=== PATIENT | female | born 1945 | race Caucasian/White ===

== ENCOUNTER → 2019-01-19 12:19 | Outpatient (CLI) | payer MEDICARE, SELFPAY ==
--- NOTE | 2019-01-19 12:28 | RAD_ITS ---
STUDY: X-RAY - CERVICAL SPINE REASON FOR EXAM: Female, 73 years old. Back pain. TECHNIQUE: AP and lateral view(s) of the cervical spine were obtained. COMPARISON: None FINDINGS: Normal anterior atlantoaxial articulation. Normal odontoid process. Normal cervical lordosis. There is multi-level endplate spondylosis. There is severe disc space narrowing of C5-C6 and to a lesser extent C6-C7. There is mild retrolisthesis of C5 over C6. There are small posterior degenerative spur at C5-C6. There is no demonstrated acute fracture. There are atherosclerotic vascular calcifications of the carotid arteries. There is no prevertebral soft tissue swelling. RAD/Cerv Spine 2 or 3 Views IMPRESSION: Degenerative changes of the cervical spine as described above. Electronically Signed: Dante Victoria MD at 12:08 EDT Tel , Service support ,
--- NOTE | 2019-01-19 12:28 | RAD_ITS ---
STUDY: X-RAY - THORACIC SPINE REASON FOR EXAM: Female, 73 years old. Back pain. TECHNIQUE: 2 view(s) of the thoracic spine were obtained. COMPARISON: None. FINDINGS: Normal kyphosis of the thoracic spine. There is mild dextroscoliosis. There is multilevel endplate spondylosis of the thoracic vertebrae. There is mild narrowing of midthoracic disc spaces. The soft tissue structures are unremarkable. RAD/Thoracic Spine 2 Views IMPRESSION: Degenerative changes of the thoracic spine as described above. Electronically Signed: Dante Victoria MD at 12:10 EDT Tel , Service support ,
== END ==
PROVIDERS: Family Provider Family Medicine; PCP Family Medicine; Referring Provider Chiropractor Orthopedic; Visit Provider Chiropractor Orthopedic
DX: M54.6 Pain in thoracic spine (principal); M54.2 Cervicalgia
CPT/HCPCS: 72040; 72070

== ENCOUNTER → 2019-02-03 | Outpatient (CLI) | payer MEDICARE, SELFPAY ==
[2019-02-03 09:55] VITALS: BMI 31.3
[2019-02-03 13:30] LABS: AST(SGOT) 28 U/L (15-37); Alanine Aminotransfer ALT/SGPT 40 U/L (13-56); Albumin, Serum 4.4 g/dL (3.2-5.0); Alkaline Phosphatase 52 U/L (45-117); Bilirubin, Direct 0.13 mg/dL (0.00-0.30); Cholesterol 116 mg/dL (200); Globulin 2.9 g/dL (2.2-4.2); High Density Lipoprotein 64 mg/dL; Protein, Total 7.3 g/dL (6.4-8.2); Triglycerides 77 mg/dL; Very Low Density Lipoprotein 15 mg/dL (5-40)
== END | disposition home or self-care (01) ==
LOC: LAB 11:02
PROVIDERS: Family Provider Family Medicine; PCP Family Medicine; Referring Provider Internal Medicine Cardiovascular Disease; Visit Provider Internal Medicine Cardiovascular Disease
DX: E78.5 Hyperlipidemia, unspecified (principal)
CPT/HCPCS: 36415; 80061; 80076

== ENCOUNTER → 2019-02-13 | Outpatient (CLI) | payer MEDICARE, SELFPAY ==
[2019-02-03 09:55] VITALS: BMI 31.3
--- NOTE | 2019-02-13 08:02 | ECHOD_ITS ---
Version 2 Reason For Study: PALPITATIONS Procedure This was a 2D Doppler, Color Flow transthoracic echocardiogram. Exam performed in department. Left Ventricle Normal size and thickness. The estimated ejection fraction is 65 %. Stage 1 diastolic dysfunction. No regional wall motion abnormalities noted. Right Ventricle Normal size and thickness. Normal systolic function. Atria Normal left atrium. Normal right atrium. Aneurysmal atrial septum. Bubble contrast study negative for right to left interatrial shunt. Mitral Valve Bileaflet diffuse mitral valve thickening. Mild mitral annular calcification extending into the posterior leaflet. Tricuspid Valve Normal tricuspid valve. Trivial tricuspid valve insufficiency. Right ventricular systolic pressure estimated to be 27 mmHg. Aortic Valve Trisinus/trileaflet aortic valve. Trivial aortic valve insufficiency. Pulmonic Valve Normal pulmonic valve. Trivial pulmonic valve insufficiency. Great Vessels Normal aortic root. Normal arch. Normal inferior vena cava. Inferior vena cava collapse with sniff. Pericardium/Pleural No pericardial effusion. Medication 22 gauge I.V. with prn adaptor inserted into right arm. Performed a rapid injection of agitated mix of 9 cc saline and 1cc air to assess for atrial septal defect. MMode/2D Measurements & Calculations LVIDd: 4.6 cm IVSd: 0.83 cm Ao root diam: 3.0 cm LVIDs: 3.1 cm LVPWd: 0.91 cm RVDd: 3.9 cm FS: 31.3 % LAV(MOD-bp): 57.4 ml LVAd ap4: 29.1 cm2 SV(MOD-sp4): 56.8 ml LAV(MOD-bp) Indexed: 31.6 ml/m2 EDV(MOD-sp4): 95.7 ml LAV(MOD-sp2): 74.6 ml EDV(sp4-el): 102.1 ml LAV(MOD-sp4): 36.7 ml LVAs ap4: 16.8 cm2 ESV(MOD-sp4): 38.9 ml ESV(sp4-el): 39.8 ml EF(MOD-sp4): 59.4 % EF(sp4-el): 61.0 % SV(sp4-el): 62.2 ml LA A4 area: 14.5 cm2 LA dimension(2D): 4.1 cm RA A4 area: 14.0 cm2 Time Measurements MV dec time: 0.30 sec Doppler Measurements & Calculations MV E max juanito: 45.0 cm/sec Lat Peak E' Juanito: 7.2 cm/sec Med Peak E' Juanito: 5.8 cm/sec MV A max juanito: 62.5 cm/sec E/E' lat: 6.2 E/E' med: 7.7 MV E/A: 0.72 Ao V2 max: 133.6 cm/sec AI max juanito: 384.7 cm/sec LV V1 max: 111.5 cm/sec Ao max P.1 mmHg AI max P.2 mmHg LV V1 max P.0 mmHg AI dec slope: 190.6 cm/sec2 AI P1/2t: 591.3 msec PA V2 max: 58.8 cm/sec PI end-d juanito: 138.9 cm/sec TR max juanito: 242.6 cm/sec TR max P.6 mmHg Interpretation Summary The estimated ejection fraction is 65 %. Stage 1 diastolic dysfunction. Trivial tricuspid valve insufficiency. Right ventricular systolic pressure estimated to be 27 mmHg. Trivial aortic valve insufficiency. Aneurysmal atrial septum. Bubble contrast study negative for right to left interatrial shunt. There is no comparison study available. Ordering Physician: Shad Mix Referring Physician: TANGELA BUCKLEY Performed By: Shadia Grimes RDCS
== END | disposition home or self-care (01) ==
LOC: CVS 08:01
PROVIDERS: Family Provider Family Medicine; PCP Family Medicine; Referring Provider Internal Medicine Cardiovascular Disease; Visit Provider Internal Medicine Cardiovascular Disease
DX: R00.2 Palpitations (principal); E11.9 Type 2 diabetes mellitus without complications; I10 Essential (primary) hypertension; I77.9 Disorder of arteries and arterioles, unspecified; R42 Dizziness and giddiness; R06.83 Snoring
CPT/HCPCS: 93306; A4216

== ENCOUNTER → 2019-02-16 | Outpatient (CLI) | payer MEDICARE, SELFPAY ==
[2019-02-03 09:55] VITALS: BMI 31.3
== END | disposition home or self-care (01) ==
LOC: SL 13:06
PROVIDERS: Family Provider Family Medicine; PCP Family Medicine; Referring Provider Internal Medicine Cardiovascular Disease; Visit Provider Internal Medicine Cardiovascular Disease
DX: R06.09 Other forms of dyspnea (principal); G47.33 Obstructive sleep apnea (adult) (pediatric); R06.83 Snoring; E66.9 Obesity, unspecified; I10 Essential (primary) hypertension; R00.2 Palpitations
CPT/HCPCS: 95806

== ENCOUNTER → 2019-02-18 | Outpatient (CLI) | payer MEDICARE, SELFPAY ==
[2019-02-03 09:55] VITALS: BMI 31.3
--- NOTE | 2019-02-18 10:45 | STE_ITS ---
Reason For Study: Palpitations Stress Results Protocol: Romeo Protocol Maximum Predicted HR: 149 bpm Target HR: 127 bpm % Maximum Predicted HR: 93 % DurationHeart Rate Stage (mm:ss) (bpm) BP Comment Baseline 60 116/70No Chest Pain Romeo Protocol Stage I 3:00 118 148/80No Chest Pain; Mild Dyspnea Romeo Protocol Stage II 3:00 139 166/84No Chest Pain; Moderate Dyspnea Recovery 73 110/68No Chest Pain Stress Duration: 6:00 mm:ss Maximum Stress HR: 139 bpm METS: 7 Baseline Echocardiogram Findings The estimated ejection fraction is 65 %. Stress Echo Wall motion Data Resting WM Intermediate WM Stress WM Resting Wall Motion Wall Motion Stress No regional wall motion No regional wall motion abnormalities noted. abnormalities noted. EKG Data The baseline ECG displays normal sinus rhythm. The patient exercised according to the regular Romeo protocol for a total duration of 6:01. The maximum heart rate attained was 141 beats per minute. This was 94% of maximum predicted heart rate. The patient exercised into stage 3 of the Romeo protocol. During stress, there were no ST or T wave changes noted to suggest ischemia. No clinical angina was noted. Interpretation Summary The estimated ejection fraction is 65 %. Normal, adequate, treadmill echocardiogram. Negative for ischemia by EKG and echocardiographic criteria. No anginal symptoms noted. Rare PVCs noted. Normal blood pressure response to exercise. Final LVEF of 75%. Test terminated due to dyspnea. Average exercise capacity for age. Decreased sensitivity due to poor echo windows requiring Definity agent. No complications. Ordering Physician: Shad Mix Referring Physician: Jose F Zamora Performed By: Tiffanie Peterson, ISABELLE, RVT
== END | disposition home or self-care (01) ==
LOC: CVS 10:44
PROVIDERS: Family Provider Family Medicine; PCP Family Medicine; Referring Provider Internal Medicine Cardiovascular Disease; Visit Provider Internal Medicine Cardiovascular Disease
DX: R00.2 Palpitations (principal)
CPT/HCPCS: 93017; 93350

== ENCOUNTER → 2019-04-07 | Outpatient (CLI) | payer MEDICARE, SELFPAY ==
[2019-03-05 09:47] VITALS: BMI 32.3
[2019-04-07] MEDS: Zolpidem Tartrate 5 MG Tablet PO (22:00)
== END | disposition home or self-care (01) ==
PROVIDERS: Family Provider Family Medicine; PCP Family Medicine; Referring Provider Nurse Practitioner Acute Care; Visit Provider Nurse Practitioner Acute Care
DX: G47.33 Obstructive sleep apnea (adult) (pediatric) (principal)
CPT/HCPCS: 95810

== ENCOUNTER → 2019-04-17 | Outpatient (CLI) | payer MEDICARE, SELFPAY ==
[2019-03-05 09:47] VITALS: BMI 32.3
[2019-04-17] MEDS: Zolpidem Tartrate 5 MG Tablet PO (22:00)
== END | disposition home or self-care (01) ==
LOC: SL 20:52
PROVIDERS: Family Provider Family Medicine; PCP Family Medicine; Visit Provider Nurse Practitioner Acute Care
DX: G47.33 Obstructive sleep apnea (adult) (pediatric) (principal)
CPT/HCPCS: 95811

== ENCOUNTER → 2019-08-07 | Outpatient (CLI) | payer MEDICARE, SELFPAY ==
[2019-08-07 13:27] VITALS: BMI 34.7
[2019-08-07 15:53] LABS: T4 Total, Thyroxin 8.3 ug/dL (4.8-13.9); Thyroid Stim Hormone (TSH) 0.76 uIU/mL (0.358-3.74)
== END | disposition home or self-care (01) ==
LOC: LAB 14:30
PROVIDERS: Family Provider Family Medicine; PCP Family Medicine; Referring Provider Internal Medicine Cardiovascular Disease; Visit Provider Internal Medicine Cardiovascular Disease
DX: R00.2 Palpitations (principal)
CPT/HCPCS: 36415; 84436; 84443

== ENCOUNTER 2019-08-24 10:26 | Emergency (ER) | payer MEDICARE, SELFPAY ==
[2019-08-07 13:27] VITALS: BMI 34.7
[2019-08-24 10:28] VITALS: BP 136/87; PULSE 58; RESP 17; TEMP 36.6; O2SAT 97; BMI 34.4
--- NOTE | 2019-08-24 10:45 | EKG12_ITS ---
Test Reason : DIZZINESS Blood Pressure : / mmHG Vent. Rate : 052 BPM Atrial Rate : 052 BPM P-R Int : 192 ms QRS Dur : 088 ms QT Int : 432 ms P-R-T Axes : 025 000 020 degrees QTc Int : 401 ms Sinus bradycardia Otherwise normal ECG Confirmed by RIOS VAZQUEZ, LISA ([id number]), market editor CARSON GUERRIER ([id number]) on 08/26/2019 11:00:38 AM Referred By: LEONELA Confirmed By:LISA NATION MD
--- NOTE | 2019-08-24 10:47 | CT_ITS ---
STUDY: CT FACIAL BONES WITH CONTRAST REASON FOR EXAM: Female, 74 years old. Left earache. Dizziness. RADIATION DOSAGE (If Supplied By Facility): CTDIvol = ( 29.38 ) mGy, DLP = ( 664.99 ) mGycm TECHNIQUE: The patient was scanned in a multi detector CT scanner. Transaxial imaging was performed following the intravenous administration of IV Isovue 300 100CC. Sagittal and coronal images were reconstructed. Individualized dose optimization techniques were used for this CT. COMPARISON: None. FINDINGS: Normal soft tissue structures. Normal orbital hernandez and orbital contents. Normal nasal bones and anterior nasal spine. Normal facial bones. There is no demonstrated fracture. Mucosal thickening of the maxillary sinuses bilaterally. CT/Sinus/Facial Bone WITH Contras IMPRESSION: Mucosal thickening of the maxillary sinuses bilaterally. Electronically Signed: Amadeo Velasquez, at 12:30 EST , Service support ,
[2019-08-24] MEDS: 0.9% Normal Saline 1,000 ML 1000 ML IV (11:07)
[2019-08-24] MEDS: Ondansetron 4 MG/2 ML Vial IV (11:08)
[2019-08-24 11:09] LABS: Absolute Lymphocyte Count 2.51 X10^3/uL (0.83-4.51); Absolute Neutrophil Count 2.4 X10^3/uL (2.0-7.7); Basophil# 0.04 X10^3/uL; Basophil% 0.7 % (0-1); Eosinophil# 0.17 X10^3/uL; Hematocrit 42.7 % (37-47); Hemoglobin 14.1 g/dL (12.0-15.0); Lymphocyte # 2.51 X10^3/ul (4.0); Lymphocyte % 44.4 % (19-41); Mean Corpuscular Hgb 30.2 pg (27.0-32.0); Mean Corpuscular Volume 91.4 fL (81-99); Mean Platelet Vol. 9.8 fl (6.2-12.0); Monocyte# 0.49 X10^3/uL; Monocyte% 8.7 % (0-10); NRBC Flagged by Analyzer 0 % (0-5); Neutrophil # 2.43 X10^3/uL (2.7-7.7); Platelet Count 202 K/mm3 (150-450); RBC Distribution Width CV 13.2 % (11.6-14.6); RBC Distribution Width SD 44.8 fl (35.1-43.9); Red Blood Count 4.67 M/mm3 (4.2-5.4); White Blood Count 5.7 K/mm3 (4.4-11.0)
--- NOTE | 2019-08-24 11:15 | ED.DCSUM_ITS ---
History of Present Illness Chief Complaint: Dizziness Informant: Patient Onset: Days Context: Gradual Onset Timing: Intermittent Current Severity: Moderate Maximum Severity: Moderate Narrative: The patient presents to the emergency department with intermittent dizziness. She states is been going on for the past few days. She states she has a history of vertigo and this does feel similar. She recently had medication change. She was started on sertraline about 2 weeks ago. She also had her lisinopril dose cut in half. She states the dizziness did seem to correspond to that, but has worsened. 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 She did require operative debridement and broad-spectrum antibiotics. She denies any fever. She denies any headache. She denies any nausea vomiting. She states she has been doing the Danii maneuver at home with some improvement, but then the symptoms returned. Prior similar symptoms: Yes Recent Illness/Hospitalization: No Past Medical History - Allergies and Home Meds Allergies/Adverse Reactions: Allergies No Known Allergies Allergy (Verified 08/24/19 10:28) Primary Care Physician: Alexx Zamora MD [Primary Care Provider] - Prior records reviewed: Yes Past Medical History: - Surgical History: noncontributory Smoking Status: Never smoker Review of Systems General: Denies: Chills, Fever, Sweats Eyes: Denies: Visual changes - bilaterally, Diplopia ENT: Reports: Bilateral ear pain. Denies: Rhinorrhea, Sore throat Cardiovascular: Denies: Chest pain, Palpitations Respiratory: Denies: Dyspnea, Cough, Dyspnea on exertion Gastrointestinal: Denies: Abdominal pain, Nausea, Vomiting, Diarrhea, Melena, Hematochezia Genitourinary: Denies: Dysuria, Hematuria, Frequency Musculoskeletal: Denies: Back pain, Extremity Pain Skin: Denies: Rash, Wounds Neurological: Denies: Headache, Weakness, Numbness Endocrine: Denies: Polyuria Hematologic: Denies: Easy bruising Physical Exam Vital Signs/Narrative: Vital Signs Temp Pulse Resp BP Pulse Ox 08/24/19 10:28 97.9 F 58 L 17 136/87 H 97 Inital Vital Signs reviewed: Yes General: Well nourished, Well developed, No Acute Distress Head: Normocephalic, Atraumatic Eyes: Perrl, EOMI ENT: Moist mucous membranes, No rhinorrhea Neck: Supple, Nontender Cardiovascular: Regular rate, Regular rhythm, No murmurs Respiratory: No distress, CTA bilaterally, Chest nontender Abdomen: Soft, Nontender, Nondistended, Normal bowel sounds Back: Nontender, Normal Inspection Extremities: Nontender, No edema Skin: Normal color, No rash Neurological: Alert, Oriented x3, Cranial nerves II-XII grossly intact, Normal Strength, Normal Sensation Psychological: Normal affect, Normal Mood Diagnostic/Tx/Re-eval Clinical Impression(s) from Imaging Studies Facial/Sinus 08/24/19 10:47 IMPRESSION: Mucosal thickening of the maxillary sinuses bilaterally. Electronically Signed: Amadeo Velasquez, at 12:30 EST , Service support , Abnormal Lab Results 08/24/19 08/24/19 11:03 11:03 WBC 5.7 RBC 4.67 Hgb 14.1 Hct 42.7 MCV 91.4 MCH 30.2 MCHC 33.0 RDW Std Deviation 44.8 H RDW Coeff of Jesus 13.2 Plt Count 202 MPV 9.8 Immature Gran % (Auto) 0.200 Neut % (Auto) 43.0 L Lymph % (Auto) 44.4 H [place] % (Auto) 8.7 Eos % (Auto) 3.0 Baso % (Auto) 0.7 Absolute Neuts (auto) 2.4 Absolute Lymphs (auto) 2.51 Nucleated RBC % 0 Sodium 137 Potassium 4.1 Chloride 104 Carbon Dioxide 26.0 Anion Gap 7 BUN 17 Creatinine 0.79 Estim Creat Clear Calc 42.07 Est GFR (MDRD) Af Amer 92 Est GFR (MDRD) Non-Af 76 BUN/Creatinine Ratio 21.5 H Glucose 111 H Calcium 9.3 - Rhythm Strip Rhythm Strip: Sinus Rhythm Rate: 60 Ectopy: None - EKG Initial EKG Interpretation: Sinus Rhythm, No Acute Injury Pattern Prior: Unchanged - Medical Decision Making Patient states that she did have similar symptoms when she had actinomycosis orbital cellulitis in the past. Is able to review her records and this was found on CT. She does not really have any significant facial fullness or purulent drainage. She does have some bulging of the TMs with serous fluid but no evidence of acute infectious process. The patient symptoms are worse when she moves her head. I did obtain a CT of her sinuses because this was her major concern. There was no evidence of orbital abscess or other dangerous process. There is very minimal inflammation of the maxillary sinuses. I am going to treat the patient with Augmentin and prednisone. She is comfortable with this plan of care. I do feel that she is safe for outpatient therapy. She was counseled on concerning symptoms and reasons to return. She will be discharged home. Impression 1. Vertigo 2. Sinusitis ED Disposition - Plan for ED Patient: Instructions: VERTIGO, Unspecified Prescriptions: Amox/Clavulanate Tablet [Augmentin Tablet] 875 mg PO Q12H #20 tab Prescription Printed Prednisone [Deltasone] 40 mg PO DAILY #10 tab Prescription Printed Referrals: Alexx Zamora MD [Primary Care Provider] -
[2019-08-24 11:22] LABS: Anion Gap 7 (5-15); BUN 17 mg/dL (7-18); BUN/Creat Ratio 21.5 RATIO (10-20); Calcium,Total 9.3 mg/dL (8.5-10.1); Chloride 104 mmol/L (98-107); Creatinine, Serum 0.79 mg/dL (0.55-1.02); EST Glomerular Filtration Rate 76 mL/min (>60); Est Glom Filt Rate - Afr Amer 92 mL/min (>60); Estimated Creatinine Clearance 42.07 ml/min; Glucose 111 mg/dL (74-106); Potassium 4.1 mmol/L (3.5-5.1); Sodium Level 137 mmol/L (136-145)
[2019-08-24 12:57] VITALS: BP 151/72; PULSE 54; RESP 18; O2SAT 100
== END 2019-08-24 12:58 | disposition home or self-care (01) ==
LOC: ED 10:46
PROVIDERS: Emergency Provider Emergency Medicine; Family Provider Family Medicine; PCP Family Medicine
DX: R42 Dizziness and giddiness (principal); J32.0 Chronic maxillary sinusitis
CPT/HCPCS: 70487; 80048; 85025; 93005; 96361; 96374; 99284; J7030; Q9967; J2405

== ENCOUNTER → 2019-09-10 11:00 | Outpatient (CLI) | payer MEDICARE, SELFPAY ==
[2019-09-01 11:25] VITALS: BMI 34.3
== END ==
PROVIDERS: Family Provider Family Medicine; PCP Family Medicine; Referring Provider Internal Medicine Critical Care Medicine; Visit Provider Internal Medicine Critical Care Medicine
DX: G47.33 Obstructive sleep apnea (adult) (pediatric) (principal)
CPT/HCPCS: 98960; G0463

== ENCOUNTER → 2020-04-25 08:59 | Outpatient (CLI) | payer MEDICARE, SELFPAY ==
[2020-03-03 10:04] VITALS: BMI 32.2
--- NOTE | 2020-04-25 09:00 | RAD_ITS ---
STUDY: X-RAY - LEFT KNEE REASON FOR EXAM: Female, 74 years old. Knee cap pain, no trauma TECHNIQUE: 5 view(s) of the knee. COMPARISON: None. FINDINGS: There is demineralization of the visualized distal femur. There is demineralization of the tibia and fibula. Normal proximal tibiofibular articulation. There is mild degenerative arthrosis of the medial femorotibial compartment. There is mild degenerative arthrosis of the lateral femorotibial compartment. There is moderate degenerative arthrosis of the patellofemoral articulation. The soft tissue structures are unremarkable. RAD/Knee 4 or More Views IMPRESSION: Degenerative arthrosis. No visualized fracture. Electronically Signed: Effie Cole MD at 0:22 EDT Tel , Service support ,
== END ==
PROVIDERS: PCP Family Medicine; Referring Provider Orthopaedic Surgery; Visit Provider Orthopaedic Surgery
DX: M25.562 Pain in left knee (principal)
CPT/HCPCS: 73564

== ENCOUNTER → 2025-02-03 | Outpatient (CLI) | payer MEDICARE, SELFPAY ==
--- NOTE | 2025-02-03 13:33 | NEURO ---
NCS and/or EMG Patient Report Ordering Doctor: OLGA CAMPBELL DATE OF SERVICE: 02/03/25 Aimee presents complaints of left leg weakness. Electrodiagnostic findings: Left peroneal motor nerve demonstrates normal distal latency with normal amplitude and normal conduction velocity. Left tibial motor nerve demonstrates normal distal latency amplitude and conduction velocity. Normal peroneal and tibial F?waves. H?reflex mildly prolonged on the right side. Normal left sural and superficial peroneal responses. Needle EMG testing was performed the left lower limb. All muscles tested showed no evidence of denervation with normal motor unit action potentials. Electrodiagnostic impression: This is a normal electrodiagnostic study of the left lower limb. There is no electrodiagnostic evidence for peripheral neuropathy or lumbosacral radiculopathy. Multi Select Codes Neurology Neurology Interp Codes: 46353-70 Musc test done w/n test comp (interp) and 96287-24 Nrv cndj test 7-8 studies (interp)
== END | disposition home or self-care (01) ==
LOC: PSN 12:13
PROVIDERS: PCP Nurse Practitioner Family; Referring Provider Physician Assistant Medical; Visit Provider Physician Assistant Medical
DX: G62.9 Polyneuropathy, unspecified (principal); R29.898 Other symptoms and signs involving the musculoskeletal system
CPT/HCPCS: 95886; 95909

== ENCOUNTER → 2025-05-14 | Outpatient (CLI) | payer MEDICARE, SELFPAY ==
[2025-05-14 12:25] LABS: Color, Urine Yellow (Yellow); Glucose, Dipstick Normal (Normal); Ketone-Dipstick 5 mg/dl (Negative); Leukocyte Esterase-Dipstick 500 /ul (Negative); Nitrite-Dipstick Negative (Negative); Occult Blood-Urine 10 /ul (Negative); Protein-Dipstick Negative (Negative); Specific Gravity, Urine 1.010 (1.002-1.030); Urine Bilirubin Dipstick Negative (Negative)
[2025-05-14 13:12] LABS: Creatinine, Urine (random) 39.40 mg/dL (28.00-217.00); Microalbumin,Random Urine < 12.0 mg/L (<20 mg/L)
--- OUTSIDE RECORDS SUMMARY | 2025-05-14 18:02 | XMS RPT_ITS | CCD ---
Author Organization [facility] CliniSynv Care Team Providers Care Residential Care Facility Manager Name Role Phone Jose F Zamora MD Primary Care Provider Rodney Shaver Unavailable Jose F Zamora MD Primary Care Provider Rodney Shaver MD Unavailable Podlogar PELLETIZER TENDER.Wen TRAORE Unavailable CARLENE GEIGER Attending Provider CARLENE GEIGER Referring Provider Honorio DIRECTOR OF WEB MARKETING-C, Guero Primary Care Provider CARLNEE GEIGER Other Provider Dr. Subhash Freed MD Attending Provider Gloria Townsend NP Attending Unavailable Alexx Zamora Referring Unavailable Noah, Alexx Primary Care Unavailable CARLENE VASQUEZ Consulting Unavailable Subhash Freed Attending Unavailable Honorio Guero Primary Care Unavailable CARLENE VASQUEZ Referring Unavailable Honorio Guero Primary Care Unavailable ERCARLENE Referring Unavailable CARLENE VASQUEZ Attending Unavailable Honorio DIRECTOR OF WEB MARKETING, [place] Primary Care Provider [phone] CHAUNCEY JANG JR Attending Unavailable ELISE ZAMORAER Primary Care Unavailable CHAUNCEY JANG JR Referring Unavailable LILLIELEY, LEODANOPHER Primary Care Unavailable RUT GAMA Attending Unavailable GUERO JUARES Referring Unavailable CARLENE VASQUEZ Attending Unavailable RUT GAMA Attending Unavailable CHAUNCEY JANG JR Referring Unavailable CARLENE VASQUEZ Referring Unavailable CHAUNCEY JANG JR Referring Unavailable CHAUNCEY JANG JR Referring Unavailable LILLIELEY, CHRISTOPHER Primary Care Unavailable Medications Current Medications Medication Drug Class(es) Dates Sig (Normalized) Sig (Original) Antiarthritic Combination No.2 (Glucosamine-Chondro itin) 900 mg tablet (1 source) Start: 04-25-2020 Antiarthritic Combination No.2 (Glucosamine-Chondr oitin) 900 mg tablet Active mg PO April 25, 2020 12:00am atorvastatin 20 mg oral tablet (20 sources) HMG-CoA Reductase Inhibitor Start: 02-01-2019 End: 07-22-2023 take 1 tablet by mouth once daily at bedtime for hyperlipidemia atorvastatin (LIPITOR) 20 mg tablet Indications: Hyperlipidemia, mixed Take 1 tablet by mouth daily at bedtime. For cholesterol. 90 tablet 1 02/28/2022 Active Comment on above: Take 1 tablet by isael th daily at bedtime. For cholesterol. CPAP (20 sources) Start: 08-06-2019 CPAP Initiate CPAP @ 7 cm of water with humidification. Mask (per patient preference) optional chin strap (if indicated) , filters, tubing, humidifier and lifetime supplies. 1 Device 08/06/2019 Active Start: 08-06-2019 CPAP Initiate CPAP @ 7 cm of water with humidification. Mask (per patient preference) optional chin strap (if indicated) , filters, tubing, humidifier and lifetime supplies. 1 Device 0 08/06/2019 Active Comment on above: Initiate CPAP @ 7 cm of water with humidification. Mask (per patient preference) optional chin strap (if indicated) , filters, tubing, humidifier and lifetime supplies. lisinopril 20 mg oral tablet (20 sources) Angiotensin Converting Enzyme Inhibitor Start: 1 take 0.5 tablet by mouth once daily lisinopril (ZESTRIL, PRINIVIL) 20 mg tablet Take 0.5 tablets by mouth once daily. 11/28/2020 Active Start: 03-03-2020 End: 07-27-2024 take 1 tablet by mouth once daily Lisinopril 10 mg tablet Discontinued 10 mg PO DAILY 90 March 01, 2023 11:40am July 27, 2024 8:15am Start: 08-07-2019 End: 03-03-2020 take 10 mg by mouth once daily Lisinopril 20 mg tablet Discontinued 10 mg PO DAILY August 07, 2019 2:02pm March 03, 2020 10:08am Start: 02-03-2019 End: 08-07-2019 take 1 tablet by mouth once daily Lisinopril 20 mg tablet Discontinued 20 mg PO DAILY February 03, 2019 12:00am August 07, 2019 2:02pm Start: 02-01-2019 End: 02-03-2019 Lisinopril 20 mg tablet Disc ontinued PO 90 February 01, 2019 12:00am February 03, 2019 9:41am Comment on above: Take 0.5 tablets by mouth once daily. melatonin 3 mg oral capsule (1 source) Start: 0 take 1 capsule by mouth at bedtime as needed Melatonin 3 mg capsule Active 3 mg PO BEDTIME as needed March 03, 2020 12:00am 24 hr metFORMIN hydrochloride 500 mg extended release oral tablet (20 sources) Biguanide Start: 1 take 1 tablet by mouth once daily at breakfast metFORMIN ER (GLUCOPHAGE XR) 500 mg 24 hr tablet Indications: Type 2 diabetes mellitus without complication, with long-term current use of insulin (HCC) Take 1 tablet by mouth daily with breakfast. 90 tablet 3 09/08/2021 Active Start: 02-01-2019 End: 07-22-2023 take 1 tablet by mouth once daily Metformin 500 mg tablet Discontinued 500 mg PO DAILY February 01, 2019 12:00am July 22, 2023 9:16am Comment on above: Take 1 tablet by isael th daily with breakfast. 24 hr metoprolol succinate 25 mg extended release oral tablet (20 sources) beta-Adrenergic Dick Start: 09-01-2021 End: 02-27-2022 take 1 tablet by mouth once daily metoprolol succinate ER (TOPROL XL) 25 mg 24 hr tablet Take 1 tablet by mouth once daily. 90 tablet 1 02/28/2022 Active Start: 08-07-2019 End: 07-22-2023 take 1 tablet by mouth every twenty-four hours at bedtime Metoprolol Succinate 25 mg tablet extended release 24 hr Discontinued 25 mg PO AT BEDTIME August 07, 2019 2:02pm July 22, 2023 9:16am Start: 02-03-2019 End: 08-07-2019 take 1 tablet by mouth once daily Metoprolol Succinate 25 mg tablet extended release 24 hr Discontinued 25 mg PO DAILY February 03, 2019 12:00am August 07, 2019 2:02pm Start: 02-01-2019 End: 02-03-2019 take 1 tablet by mouth every twenty-four hours Metoprolol Succinate 25 mg tablet extended release 24 hr Discontinued PO 90 February 01, 2019 12:00am February 03, 2019 9:42am Comment on above: Take 1 tablet by isael th once daily. sertraline 50 mg oral tablet (20 sources) Serotonin Reuptake Inhibitor Start: 9 End: 3 take 1 tablet by mouth once daily sertraline (ZOLOFT) 50 mg tablet Indications: Anxiety Take 1 tablet by mouth once daily. 90 tablet 3 09/08/2021 Active Comment on above: Take 1 tablet by isael once daily. traZODone hydrochloride 100 mg oral tablet (5 sources) Serotonin Reuptake Inhibitor Start: 5 End: 6 traZODone (DESYREL) 100 mg tablet Indications: Insomnia, unspecified type Take 1 tablet by mouth daily at bedtime. Patient should start on April 20, 2025. 90 tablet 3 04/20/2025 04/15/2026 Active Completed/Discontinued Medications Medication Drug Class(es) Dates Sig (Normalized) Sig (Original) amoxicillin 875 mg / clavulanate 125 mg oral tablet (1 source) Penicillin-class Antibacterial Start: 08-24-2019 End: 03-03-2020 take 1 tablet by mouth every twelve hours Amoxicillin-Pot Clavulanate 875 MG tablet Discontinued 875 mg PO Q12H August 24, 2019 1:00am March 03, 2020 10:08am LORazepam 1 mg oral tablet (1 source) Benzodiazepine Start: 08-25-2013 End: 02-01-2019 take 1 tablet by mouth three times daily as needed Lorazepam 1 MG tablet Discontinued 1 mg PO THREE TIMES A DAY as needed for Vertigo August 25, 2013 1:56pm February 01, 2019 1:31pm meclizine hydrochloride 25 mg oral tablet (2 sources) Antiemetic Start: 09-01-2013 End: 02-01-2019 take 1 tablet by mouth three times daily Meclizine 25 MG tablet Discontinued 25 mg PO THREE TIMES A DAY September 01, 2013 1:00am February 01, 2019 1:31pm Start: 08-25-2013 End: 02-01-2019 take 1 tablet by mouth every eight hours Meclizine 25 MG tablet Discontinued 25 mg PO EVERY 8 HOURS August 25, 2013 1:00am February 01, 2019 1:31pm meloxicam 15 mg oral tablet (1 source) Nonsteroidal Anti-inflammatory Drug Start: 04-25-2020 End: 07-22-2023 take 1 tablet by mouth once daily Meloxicam (Mobic) 15 mg tablet Discontinued 15 mg PO DAILY April 25, 2020 12:00am July 22, 2023 9:16am do not take with other NSAIDs predniSONE 20 mg oral tablet (1 source) Start: 08-24-2019 End: 09-02-2019 take 2 tablets by mouth once daily at mealtime Prednisone 20 MG tablet Discontinued 40 mg PO DAILY August 24, 2019 1:00am September 02, 2019 9:47am With food Selenium 200 mcg capsule (1 source) Start: 02-03-2019 End: 07-22-2023 take 1 capsule by mouth once daily Selenium 200 mcg capsule Discontinued 200 ug PO DAILY February 03, 2019 12:00am July 22, 2023 9:16am Eric's Wort (1 source) Start: 02-03-2019 End: 08-07-2019 take 1 capsule by mouth twice daily [place]'s Wort 300 mg capsule Discontinued 700 mg PO TWICE A DAY February 03, 2019 12:00am August 07, 2019 1:31pm suvorexant 10 mg oral tablet (1 source) Orexin Receptor Antagonist Start: 01-29-2025 End: 01-29-2025 take 1 tablet by mouth once daily at bedtime suvorexant (BELSOMRA) 10 mg tab Indications: Insomnia, unspecified type Take 1 tablet by mouth daily at bedtime for 90 days. 30 tablet 2 01/29/2025 01/29/2025 Discontinued Problems Active Problems Problem Classification Problem Date Documented Date Episodic/Chronic Anxiety disorders (20 sources) Anxiety; Translations: [Anxiety disorder, unspecified] 01-01-2018 Chronic Cardiac dysrhythmias (1 source) Palpitations; Translations: [Palpitations] 09-25-2021 Episodic Conditions associated with dizziness or vertigo (1 source) Vertigo; Translations: [Dizziness and giddiness] 09-25-2021 Episodic Diabetes mellitus with complications (1 source) Secondary diabetes mellitus; Translations: [Diabetes mellitus due to underlying condition with hyperosmolarity without nonketotic hyperglycemic-hyperos molar coma (NKHHC)] Chronic Diabetes mellitus without complication (20 sources) Diabetes mellitus; Translations: [Type 2 diabetes mellitus without complications] Onset: 09-05-2013 Chronic Disorders of lipid metabolism (2 sources) Mixed hyperlipidemia; Translations: [Mixed hyperlipidemia] Chronic Essential hypertension (20 sources) Hypertensive disorder; Translations: [Essential (primary) hypertension] Onset: 09-05-2013 10-16-2021 Chronic Other circulatory disease (1 source) Disorder of carotid artery; Translations: [Disorder of arteries and arterioles, unspecified] 09-25-2021 Chronic Comment on above: < 40 % bilaterally Other connective tissue disease (9 sources) Recurrent falls ; Translations: [Repeated falls] 12-04-2024 Episodic Other lower respiratory disease (1 source) Dyspnea on exertion; Translations: [Other forms of dyspnea] 09-25-2021 Episodic Other lower respiratory disease (1 source) Snoring; Translations: [Snoring] 09-25-2021 Episodic Other nervous system disorders (2 sources) Neuropathy; Translations: [Polyneuropathy, unspecified] 01-13-2025 Chronic Other nervous system disorders (2 sources) Polyneuropathy, unspecified; Translations: [Polyneuropathy, unspecified] Onset: 01-13-2025 Chronic Other nervous system disorders (9 sources) Disturbance in speech; Translations: [Unspecified speech disturbances] 12-04-2024 Episodic Other nervous system disorders (9 sources) Coordination problem; Translations: [Other lack of coordination] 12-04-2024 Episodic Other nervous system disorders (9 sources) Impairment of balance; Translations: [Other abnormalities of gait and mobility] 12-04-2024 Episodic Other nervous system disorders (2 sources) Other lack of coordination; Translations: [Other lack of coordination] Onset: 01-13-2025 Episodic Other non-traumatic joint disorders (3 sources) Hip pain; Translations: [Pain in left hip] 12-04-2024 Episodic Other nutritional; endocrine; and metabolic disorders (20 sources) Obesity; Translations: [Obesity, unspecified] 11-28-2020 Chronic Other nutritional; endocrine; and metabolic disorders (1 source) H/O: diabetes mellitus; Translations: [Personal history of other endocrine, nutritional and metabolic disease] 12-04-2024 Episodic Other nutritional; endocrine; and metabolic disorders (1 source) H/O: raised blood lipids; Translations: [Personal history of other endocrine, nutritional and metabolic disease] 12-04-2024 Episodic Residual codes; unclassified (20 sources) Obstructive sleep apnea syndrome; Translations: [Obstructive sleep apnea (adult) (pediatric)] 11-28-2020 Chronic Residual codes; unclassified (1 source) Obstructive sleep apnea (adult) (pediatric); Translations: [FINA on CPAP] Onset: 04-01-2025 Chronic Residual codes; unclassified (5 sources) Insomnia; Translations: [Insomnia, unspecified] 12-04-2024 Episodic Spondylosis; intervertebral disc disorders; other back problems (20 sources) Degeneration of cervical intervertebral disc; Translations: [Other cervical disc degeneration, unspecified cervical region] Onset: 02-05-2019 02-05-2019 Chronic Unclassified (20 sources) SUMMARY Onset: 09-05-2013 Unclassified (15 sources) Drug therapy finding; Translations: [DVT prophylaxis] Onset: 09-05-2013 Past or Other Problems Problem Classification Problem Date Documented Date Episodic/Chronic Inflammation; infection of eye (except that caused by tuberculosis or sexually transmitteddisease) (20 sources) Orbital cellulitis; Translations: [Cellulitis of unspecified orbit] Onset: 09-05-2013 Episodic Other aftercare (5 sources) Drug therapy finding; Translations: [Other certified prosthetist/orthotist (current) drug therapy] Onset: 09-05-2013 Episodic Other connective tissue disease (1 source) Repeated falls; Translations: [Recurrent falls] Onset: 12-04-2024 Episodic Other nervous system disorders (1 source) Unspecified speech disturbances; Translations: [Speech disturbance, unspecified type] Onset: 12-04-2024 Episodic Other nervous system disorders (1 source) Other abnormalities of gait and mobility; Translations: [Balance problem] Onset: 12-04-2024 Episodic Other non-traumatic joint disorders (1 source) Pain in left hip; Translations: [Pain in left hip] Onset: 12-04-2024 Episodic Other nutritional; endocrine; and metabolic disorders (2 sources) Personal history of other endocrine, nutritional and metabolic disease; Translations: [History of hyperlipidemia] Onset: 12-04-2024 Episodic Other screening for suspected conditions (not mental disorders or infectious disease) (20 sources) Patient encounter status; Translations: [Encounter for screening for malignant neoplasm of colon] Onset: 09-05-2013 07-05-2017 Episodic Residual codes; unclassified (1 source) Insomnia, unspecified; Translations: [Insomnia, unspecified type] Onset: 12-04-2024 Episodic Results Test Name Value Interpretation Reference Range Facility CNOVon 04-01-2025 CNOV Office Visit (SLEWST ) AIMEE CANCINO ([id number]) 1945 F Date Time Provider Department 04/01/25 9:30 AM RUT GAMA During your visit today, we recorded the following information about you: Pulse Respiration Blood pressure Weight 61/minute 16/minute 92/60 93.6 kg Rut Gama APRN.CNP 04/01/2025 12:05 PM Signed [facility] Follow up/ Established patient visit Recording using Qustodio software for draft documentation of the visit was discussed with the patient/authorized sales account representative; all questions welcomed and answered. Patient/authorized sales account representative agreed to proceed Assessment/Plan from last visit: Date of last visit : 02/04/2025 IMPRESSION/PLAN: G47.00 Insomnia, unspecified type (primary encounter diagnosis) G47.33 FINA on CPAP Aimee Cancino is a pleasant 79 year old female with insomnia that she reports began when she started PAP therapy for moderate FINA. She struggles with sleep maintenance insomnia, especially terminal insomnia. She spends a significant amt of time in bed watching TV. --Patient is compliant with PAP therapy and reports subjective benefits from treatment --We reviewed PAP compliance report; AHI is normalized - Continue CPAP at 7 cmH2O. - Remember to clean your mask and equipment regularly, as directed. - You should be eligible for new supplies approximately every 3-6 months, depending on your insurance coverage. Contact your [employer] (DME) company for new supplies as needed. Discussed hyperarousal state and underlying causes of insomnia. Recommend she not spend any time in bed watching TV; need to retrain the brain to understand that bed=sleep. Start Belsomra 10 mg for medical treatment of insomnia. If too expensive then we will try trazodone 100 mg (50 mg wasn't effective) Follow up in 2 months in the office. Recommend scheduling this appointment now to ensure the best time for you. Rut Gama APRN.EUGENIE CURRENT VISIT: 04/01/2025 - Patient is a 79-year-old female presenting for f/u insomnia that began in 2019 when she started using CPAP. She is very pleased with the 100 mg dose of trazodone, no adverse effects - Reports that trazodone has increased her sleeping about 75% of the time. - Previously on 50 mg of trazodone which did not work, currently on 100 mg which seems effective. - Previously, she was putting her CPAP on at 20:00, watching TV for a couple of hours, falling asleep at 22:00, but waking up at 03:30 and unable to go back to sleep. - Currently, she wakes up to use the bathroom and falls back asleep within 10 minutes. - Occasionally still wakes up at 03:30 but not on a regular basis. - Slept for 10 hours one night and 12 hours another night recently - Denies needing to use Benadryl any more for sleep. - Hip and Lower Back Pain can affect the quality and quantity of her sleep - CPAP Usage - Patient has been using CPAP since 2019. followed by primary care. she would like primary care to take over prescribing trazodone. - Reports doing well with CPAP usage, despite experiencing bhagat on her face from the mask. SLEEP APNEA Sleep apnea type : FINA, Most Recent Apnea-Hypopnea Index (AHI): 18.8 Treatment : PAP therapy DME: [facility] PAP History: Uses CPAP for 7.5 hours per night, 7 nights per week. Current PAP settin cm H2O. Difficulties with CPAP: None Reviewed objective PAP compliance data: AHI 1.5 Mask type: full face mask Mask issues: none There is a perceived benefit by the patient --------- PATIENT-ENTERED QUESTIONNAIRE SLEEP SCORES: 03/26/2025 Sleep Questions Reason for visit: Difficulty falling or staying asleep or poor sleep quality Average hours of CPAP per night: 7 Percent of nights CPAP used at least 4 hours: 100 Accidents or near accidents due to drowsy drivin 01/28/2025 03/26/2025 [place] Sleepiness Scale Score 8 (No clinically significant daytime sleepiness) 3 (No clinically significant daytime sleepiness) 01/28/2025 03/26/2025 PROMIS CAT Sleep Disturbance PROMIS Sleep Disturbance T-Score 62 (moderate) 51 (within normal limits) PROMIS Sleep Disturbance Percentile 12 46 01/28/2025 Insomnia Severity Index Score 22 01/28/2025 Restless Leg Syndrome Score 12 (Moderate symptoms) 01/28/2025 03/26/2025 PHQ-9 Score 13 6 02/05/2019 11/16/2024 03/26/2025 PROMIS Global Health - (T-Scores - the mean of general population = 50. Five points is a clinically meaningful difference.) Physical T-Score 57.7 42.3 39.8 Mental T-Score 62.5 56 56 03/26/2025 Sleep Questions Reason for visit: Difficulty falling or staying asleep or poor sleep quality Average hours of CPAP per night: 7 Percent of nights CPAP used at least 4 hours: 100 Accidents or ne (more content not included)... Normal [facility] 04-01-2025 DESTINY Telephone (ESTRADA) AIMEE CANCINO ([id number]) 1945 F Date Time Provider Department 04/01/25 RUT GAMA During your visit today, we recorded the following information about you: Rut Gama APRN.CNP 04/01/2025 12:05 PM Signed Please fax my progress note to her PCP Guero Juares CNP at [facility] Rut Gama APRN.Vilma Cardoza OCCA 04/01/2025 12:15 PM Signed Added Guero Juares CNP to patient care team. OV note from today faxed as requested. ANRUAG Ray Allergies As of Date: 04/01/2025 (No Known Allergies) Date Reviewed: 04/01/2025 Reviewed by: Salud Johns MA - Fully Assessed Prescriptions as of 04/01/2025 - traZODone (DESYREL) 100 mg tablet Take 1 tablet by mouth daily at bedtime. Patient should start on April 20, 2025. - atorvastatin (LIPITOR) 20 mg tablet Take 1 tablet by mouth daily at bedtime. For cholesterol. - metoprolol succinate ER (TOPROL XL) 25 mg 24 hr tablet Take 1 tablet by mouth once daily. - sertraline (ZOLOFT) 50 mg tablet Take 1 tablet by mouth once daily. - metFORMIN ER (GLUCOPHAGE XR) 500 mg 24 hr tablet Take 1 tablet by mouth daily with breakfast. - lisinopril (ZESTRIL, PRINIVIL) 20 mg tablet Take 0.5 tablets by mouth once daily. - CPAP Initiate CPAP @ 7 cm of water with humidification. Mask (per patient preference) optional chin strap (if indicated) , filters, tubing, humidifier and lifetime supplies. - blood sugar diagnostic (ACCU-CHEK ALEJANDRA) test strip Test blood sugar(s) 3 times daily. Dx: Type 2 DM - Controlled E11.9 Insulin: Yes Accucheck smartview test strips Problem List As Of Date 04/01/2025 Noted Resolved SUMMARY [V999.95] 09/05/2013 Orbital cellulitis and preseptal cellulitis [H0*09/05/2013 DVT prophylaxis [[id number]] 09/05/2013 HTN (hypertension) [I10] 09/05/2013 Diabetes mellitus (HCC) [E11.9] 09/05/2013 Colon cancer screening [Z12.11] 07/05/2017 Anxiety [F41.9] DDD (degenerative disc disease), cervical [M50.*02/05/2019 FINA (obstructive sleep apnea) [G47.33] Obesity [E66.9] Encounter Status:Closed by VILMA EDWARDS on 04/01/25 Normal [facility] BD DXA - AXIAL SKELETONon BD DXA - AXIAL SKELETON * * *Final Report* * * DATE OF EXAM: Feb 22 2025 9:14AM [id number] - BD DXA - AXIAL SKELETON B / PROCEDURE REASON: Z13.820 * * * * Physician Interpretation * * * * EXAMINATION: DXA BONE DENSITOMETRY BD DXA - AXIAL SKELETON PATIENT DEMOGRAPHICS: Age: 79 years, Gender: Female SCANNER INFORMATION: DXA Model: Ducksboard C [id number] Date Scanned: 02/22/2025 9:14 AM CLINICAL HISTORY: DIAGNOSTIC Z13.820. RISK FACTORS FOR OSTEOPOROSIS AND ASSOCIATED FRACTURES REPORTED BY THIS PATIENT: Please refer to Bone Health Questionnaire in the EMR CURRENT THERAPY: Please refer to Bone Health Questionnaire in the EMR TECHNICAL LIMITATIONS: None RESULTS: Lumbar spine (L1, L2, L3, L4): 1.109 g/cm2, T-score 0.6, Z-score 3.1 Lumbar spine: 2018: 0.998 g/cm2 Statistically significant increase Right Femoral Neck: 0.707 g/cm2, T-score -1.3, Z-score 0.9 Right Femoral Neck: 2018: 0.745 g/cm2 Statistically significant decrease Right Total Hip: 1.004 g/cm2, T-score 0.5, Z-score 2.4 Right Total Hip: 2018: 0.983 g/cm2 No statistically significant change Left Femoral Neck: 0.744 g/cm2, T-score -0.9, Z-score 1.2 Left Femoral Neck: 2018: 0.777 g/cm2 No statistically significant change Left Total Hip: 1.029 g/cm2, T-score 0.7, Z-score 2.6 Left Total Hip: 2018: 1.026 g/cm2 No statistically significant change CHANGE IS STATISTICALLY SIGNIFICANT IN THE SPINE OR HIP IF GREATER THAN OR EQUAL TO 0.04 g/cm2 VERTEBRAL FRACTURE ASSESSMENT Not performed. IMPRESSION: THE LOWEST T-SCORE IS -1.3 IN THE RIGHT HIP 1) DIAGNOSIS (based on BMD alone): OSTEOPENIA Caution: Medical conditions other than osteoporosis may cause low bone density, such as osteomalacia or renal osteodystrophy. Clinical correlation is necessary. 2) FRACTURE RISK (based on FRAX): 10-year absolute fracture risk: - major osteoporotic fracture = 11 % - hip fracture = 2.0 % - A diagnosis of Osteoporosis, a 10 year probability of hip fracture greater than or equal to 3% or a 10 year probability of any major osteoporosis-related fracture greater than or equal to 20% should be considered for treatment. - DXA scanner generated FRAX calculations may slightly differ from online FRAX calculations due to differences in software versions. - All recommendations and calculations are to be considered as guidelines and should not replace sound clinical judgement - Caution: Fracture risk may be increased independent of BMD in patients with corticosteroid use, age greater than 65 years, or a history of prior fragility fracture. RECOMMENDATIONS: Follow-up in 2 years or as clinically indicated. Patients that are taking corticosteroids, are transplant recipients or have hyperparathyroidism should have annual follow-up. Follow-up scans should always be done on the same machine for accurate comparison. FOR MORE INFORMATION ABOUT DIAGNOSIS AND TREATMENT: [facility] for Osteoporosis and Metabolic Bone Disease:? www.ccf.org/arthritis /osteo National Osteoporosis Foundation:? www.nof.org International Society of Clinical Densitometry www.iscd.org File Keeper: PETER Transcribe Date/Time: Feb 23 2025 9:54A Dictated by : ROLANDA MELTON MD This examination was interpreted and the report reviewed and electronically signed by: ROLANDA MELTON MD on Feb 23 2025 9:57AM EST [id number] N -1.3 Normal [facility] ROSSY SCREENING W TOMOon 02-22 ROSSY SCREENING W KATHE * * *Final Report* * * DATE OF EXAM: Feb 22 2025 8:58AM [facility] 0582 - ROSSY SCREENING W KATHE / PROCEDURE REASON: screening * * * * Physician Interpretation * * * * RESULT: [place] [address] [place] [id number] #[id number] - ROSSY SCREENING W KATHE HISTORY: 79 year-old patient seen for screening. Patient is asymptomatic in both breasts. Patient states no personal history of breast cancer. COMPARISON STUDIES: The present examination has been compared to prior imaging studies dated 10/04/2020 (mammogram), 10/06/2021 (mammogram) and 10/25/2022 (mammogram). MAMMOGRAM TECHNIQUE: The study was acquired using full field digital technology and interpreted from soft copy. Digital Breast Tomosynthesis (DBT) images were obtained and used to assist in the interpretation of this examination. Computer-aided detection was utilized by the radiologist in the interpretation of this examination. MAMMOGRAM FINDINGS: There are scattered areas of fibroglandular density. No suspicious masses, calcifications or other abnormalities are seen in either breast. There are no significant interval changes. IMPRESSION: There is no mammographic evidence of malignancy in either breast. Routine screening mammogram is recommended. Annual mammogram will be due in 1 year. BI-RADS Category 1: Negative RISK: Based on the Tyrer-Cuzick (TC) risk assessment model, this patient has a 2.7% lifetime risk of developing breast cancer, meaning they are at average risk for developing breast cancer. However, this is only an estimate based on available history provided on the patient's questionnaire. We encourage all patients to talk with their providers about these results, further recommendations for managing breast health, and appropriate supplemental screening options if the patient has dense breast tissue. Interpreting Radiologist: Montez Pelaez M.D. Resident/Fellow: Karma Robert D.O. Electronically signed on: 02/23/2025 File Keeper: MAYNOR Mcphersonrimark Date/Time: Feb 22 2025 8:24A Dictated by: KARMA ROBERT, DO This examination was interpreted and the report reviewed and electronically signed by: MONTEZ PELAEZ MD on Feb 23 2025 10:29AM EST [id number] [facility] Rossi 02-04-2025 CNPN Telephone (SLEWST) AIMEE CANCINO ([id number]) 1945 F Date Time Provider Department 02/04/25 CARLENE VASQUEZ During your visit today, we recorded the following information about you: Shantelle Allen LPN 02/04/2025 4:45 PM Signed Please see EMG Results- Scan on 02/03/2025 1:45 PM by Provider, SHANNON Royal: EMG DAVID Walden Jessica, LPN 02/08/2025 10:32 AM Signed EMG is normal without significant signs of pinched nerve in the lumbar spine or neuropathy. Carlene Vasquez PA-C Allergies As of Date: 02/04/2025 (No Known Allergies) Date Reviewed: 01/29/2025 Reviewed by: Shantelle Allen LPN - Fully Assessed Reason for Visit: Results [95] Prescriptions as of 02/11/2025 - traZODone (DESYREL) 100 mg tablet Take 1 tablet by mouth daily at bedtime. - atorvastatin (LIPITOR) 20 mg tablet Take 1 tablet by mouth daily at bedtime. For cholesterol. - metoprolol succinate ER (TOPROL XL) 25 mg 24 hr tablet Take 1 tablet by mouth once daily. - sertraline (ZOLOFT) 50 mg tablet Take 1 tablet by mouth once daily. - metFORMIN ER (GLUCOPHAGE XR) 500 mg 24 hr tablet Take 1 tablet by mouth daily with breakfast. - lisinopril (ZESTRIL, PRINIVIL) 20 mg tablet Take 0.5 tablets by mouth once daily. - CPAP Initiate CPAP @ 7 cm of water with humidification. Mask (per patient preference) optional chin strap (if indicated) , filters, tubing, humidifier and lifetime supplies. - blood sugar diagnostic (ACCU-CHEK ALEJANDRA) test strip Test blood sugar(s) 3 times daily. Dx: Type 2 DM - Controlled E11.9 Insulin: Yes Accucheck smartview test strips Problem List As Of Date 02/04/2025 Noted Resolved SUMMARY [V999.95] 09/05/2013 Orbital cellulitis and preseptal cellulitis [H0*09/05/2013 DVT prophylaxis [HTF8174] 09/05/2013 HTN (hypertension) [I10] 09/05/2013 Diabetes mellitus (HCC) [E11.9] 09/05/2013 Colon cancer screening [Z12.11] 07/05/2017 Anxiety [F41.9] DDD (degenerative disc disease), cervical [M50.*02/05/2019 FINA (obstructive sleep apnea) [G47.33] Obesity [E66.9] Encounter Status:Closed by SHANTELLE ALLEN on 02/11/25 [facility] NCS and/or EMG Patienton NCS and/or EMG Patient [facility] Pulmonary Services/Neurology [address] [place] [address] MR#: [id number] Acct: [id number] Name: AIMEE CANCINO Rep #: [id number] : 1945 79 From: Subhash Freed MD Referring Dr: CARLENE VASQUEZ Status: REG CL I Location: PSN Date: 02/03/25 Sex: F C NCS and/or EMG Patient Report Ordering Doctor: CARLENE VASQUEZ DATE OF SERVICE: 02/03/25 Aimee presents complaints of left leg weakness. Electrodiagnostic findings: Left peroneal motor nerve demonstrates normal distal latency with normal amplitude and normal conduction velocity. Left tibial motor nerve demonstrates normal distal latency amplitude and conduction velocity. Normal peroneal and tibial F???waves. H???reflex mildly prolonged on the right side. Normal left sural and superficial peroneal responses. Needle EMG testing was performed the left lower limb. All muscles tested showed no evidence of denervation with normal motor unit action potentials. Electrodiagnostic impression: This is a normal electrodiagnostic study of the left lower limb. There is no electrodiagnostic evidence for peripheral neuropathy or lumbosacral radiculopathy. Multi Select Codes Neurology Neurology Interp Codes: 12116-68 Musc test done w/n test comp (interp) and 98741-54 Nrv cndj test 7- 8 studies (interp) 02/03/25 1335 Date Subhash Freed MD CC: DIRECTOR OF WEB MARKETING-C Guero Juares; Dr. Subhash Freed MD; VIVI CEBALLOS Date Dictated: 02/03/25 1333 Date Transcribed: 02/03/251332 File Keeper: AA Signed Normal [facility] CNOVon 01-29-2025 CNOV Office Visit (SLEWST ) AIMEE CANCINO ([id number]) 1945 F Date Time Provider Department 01/29/25 8:00 AM RUT GAMA SLEWST During your visit today, we recorded the following information about you: Pulse Respiration Blood pressure Weight 64/minute 18/minute 138/82 88.4 kg Rut Gama APRN.TRACTOR OPERATOR 01/29/2025 12:43 PM Signed [facility] New Patient Evaluation PATIENT NAME: Aimee Cancino DATE OF SERVICE: January 29, 2025 CONSULTING PROVIDER: Chauncey Jang [facility] [place] [address] REASON FOR CONSULT: Chauncey Jang Jr. sends the patient for an opinion about FINA. My findings and recommendations will be transmitted electronically via shared medical record to the consulting provider. She is being followed by [facility] for abnl coordination, balance problem, recurrent falls, neuropathy. HPI: Aimee Cancino is a 79 year old female. Sleep-related history: "I'm here because of insomnia", it started when she started using CPAP in 2019. She is hoping to get hypoglossal nerve stimulation (Inspire). She says she doesn't want another sleep study. SLEEP-WAKE SCHEDULE Puts PAP on at 8 PM, watches TV for a couple of hours. Falls asleep at 10 PM. Always wakes at 330 AM, doesn't go back to sleep. "I don't believe in naps." She feels tired all day. She takes diphenhydramine 50 mg about once every 3 wks, the last time she took it she slept until 9 AM. Wakes intermittently about 4x to urinate when she sleeps longer like that. Can be hard to fall back asleep. Other meds for insomnia: Melatonin--ineffectiv e Trazodone 50 mg--ineffective Average total sleep time (in a 24 hour period): 5 hours. SLEEP-RELATED DETAILS Preferred sleep position: side, side/prone Breathing disturbances and other behaviors during sleep: occas wakes self up snoring if not using PAP. GERD or aspiration: No Waking up with heart pounding or racing: No Anxiety or rumination: No She does not report having an urge to move the legs in the evening (when resting) that is accompanied or caused by uncomfortable and/or unpleasant sensations in the legs. PSG showed elevated PLMs that improved with PAP on her titration study. She denies any history of parasomnias. Daytime sleepiness is a concern, coincides with start of insomnia when she started PAP in 2018 She does not report sleep paralysis or sleep-related hallucinations WAKE-RELATED DETAILS She does not work. She does have difficulty with memory She denies falling asleep or dozing off when driving. She does not take naps. She does drink 5 cups of coffee in the morning caffeinated beverages per day. There has not been a recent change in weight. Patient Questionnaires Sleep Scores 01/28/2025 Sleep Questions Reason for visit: Sleep apnea Difficulty falling or staying asleep or poor sleep quality Excessive daytime sleepiness Abnormal sleep/wake timing On average, hours of sleep in 24 hours: 5 Accidents or near accidents due to drowsy drivin Multiple values from one day are sorted in reverse-chronological order 01/28/2025 [place] Sleepiness Scale Score 8 (No clinically significant daytime sleepiness) 01/28/2025 PROMIS CAT Sleep Disturbance PROMIS Sleep Disturbance T-Score 62 (moderate) PROMIS Sleep Disturbance Percentile 12 01/28/2025 Insomnia Severity Index Score 22 01/28/2025 Restless Leg Syndrome Score 12 (Moderate symptoms) 01/28/2025 PHQ-9 Score 13 11/16/2024 PROMIS Global Health - (T-Scores - the mean of general population = 50. Five points is a clinically meaningful difference.) Physical T-Score 42.3 Mental T-Score 56 PAST TREATMENTS: CPAP 7 cmH2 12,000+ hrs Benefits: "supposedly I stop breathing so it helps that" Reviewed report for 30 days: AHI 1.1, uses almost 8 hrs per night PRIOR SLEEP STUDIES: 03/21/19 PSG at [facility]: AHI 18.8, PLM index 50, PLM arousal index 10 04/17/19 PAP titration at [facility]: PLM index 9, PLM arousal index 1, recommended CPAP 10 cmH2O PAST MEDICAL HISTORY Diagnosis Date Actinomycosis 2012 Anxiety DDD (degenerative disc disease), cervical severe C5-C6 DDD (degenerative disc disease), thoracic mild Diabetes (HCC) type 2 HTN (hypertension) Obesity FINA (obstructive sleep apnea) on CPAP [address] Rosa pulmonology PVC (premature ventricular contraction) Vertigo PAST SURGICAL HISTORY Procedure Laterality Date COLONOSCOPY FLX DX W/COLLJ SPEC WHEN PFRMD 07/16/2017 tubular adenoma-repeat in 5 years FRACTURE NASAL TURBINATE(S), THERAPEUTIC 09/07/13 Right NASAL/SINUS ENDOSCOPY W/MAXILLARY ANTROSTOMY 09/07/13 Right NASAL/SINUS NDSC SURG MEDIALANDINF ORB WALL DCMPRN 09/07/13 Right NASAL/SINUS NDSC SURG W/DACRYOCSTORHINOSTOM Y 09/07/13 Right NASAL/SINUS NDSC W/TOTAL ETHOIDECTOMY 09/07/13 Right SCREENING COLONSCOPY NOT HIGH RISK , normal STR (more content not included)... Normal [facility] CNPNon 01-14-2025 CNPN Telephone (NEMOWS) AIMEE CANCINO ([id number]) 1945 F Date Time Provider Department 01/14/25 CARLENE VASQUEZ During your visit today, we recorded the following information about you: Elena Gonzalez, RN 01/14/2025 11:05 AM Signed Errol from coding dept at [facility] calling in regards to pt's order for an EMG. Code of G62.9 does not work for coverage with insurance. Errol asking for other codes. Per Carlene Vasquez's office visit note: ASSESSMENT/PLAN: 1. Coordination abnormal - ICD9: 781.3, ICD10: R27.8 (primary diagnosis) 2. Balance problem - ICD9: 781.99, ICD10: R26.89 3. Recurrent falls - ICD9: V15.88, ICD10: R29.6 4. Neuropathy - ICD9: 355.9, ICD10: G62.9 Errol given all of the above codes. She states the R27.8 will work. Allergies As of Date: 01/14/2025 (No Known Allergies) Date Reviewed: 01/13/2025 Reviewed by: Carlene Vasquez PA-C - Fully Assessed Reason for Visit: Orders [681] Cmt: coding problem Prescriptions as of 01/14/2025 - atorvastatin (LIPITOR) 20 mg tablet Take 1 tablet by mouth daily at bedtime. For cholesterol. - metoprolol succinate ER (TOPROL XL) 25 mg 24 hr tablet Take 1 tablet by mouth once daily. - sertraline (ZOLOFT) 50 mg tablet Take 1 tablet by mouth once daily. - metFORMIN ER (GLUCOPHAGE XR) 500 mg 24 hr tablet Take 1 tablet by mouth daily with breakfast. - lisinopril (ZESTRIL, PRINIVIL) 20 mg tablet Take 0.5 tablets by mouth once daily. - CPAP Initiate CPAP @ 7 cm of water with humidification. Mask (per patient preference) optional chin strap (if indicated) , filters, tubing, humidifier and lifetime supplies. - blood sugar diagnostic (ACCU-CHEK ALEJANDRA) test strip Test blood sugar(s) 3 times daily. Dx: Type 2 DM - Controlled E11.9 Insulin: Yes Accucheck smartview test strips Problem List As Of Date 01/14/2025 Noted Resolved SUMMARY [V999.95] 09/05/2013 Orbital cellulitis and preseptal cellulitis [H0*09/05/2013 DVT prophylaxis [GAV8487] 09/05/2013 HTN (hypertension) [I10] 09/05/2013 Diabetes mellitus (HCC) [E11.9] 09/05/2013 Colon cancer screening [Z12.11] 07/05/2017 Anxiety [F41.9] DDD (degenerative disc disease), cervical [M50.*02/05/2019 FINA (obstructive sleep apnea) [G47.33] Obesity [E66.9] Encounter Status:Closed by ELENA GONZALEZ on 01/14/25 [facility] CNOVon 01-13-2025 CNOV Office Visit (NEMOWS ) AIMEE CANCINO ([id number]) 1945 F Date Time Provider Department 01/13/25 8:30 AM CARLENE VASQUEZ During your visit today, we recorded the following information about you: Pulse Respiration Blood pressure Weight 64/minute 18/minute 112/74 88.3 kg Carlene Vasquez PA-C 01/13/2025 10:05 AM Signed [facility] Name: Aimee Cancino Age: [age] year old Gender: female Primary Care Provider: No primary care provider on file. Assessment/Plan: 01/13/2025 - General NeurologyCarlene PA-C ASSESSMENT ASSESSMENT/PLAN: 1. Coordination abnormal - ICD9: 781.3, ICD10: R27.8 (primary diagnosis) 2. Balance problem - ICD9: 781.99, ICD10: R26.89 3. Recurrent falls - ICD9: V15.88, ICD10: R29.6 4. Neuropathy - ICD9: 355.9, ICD10: G62.9 Patient without any falls since last appointment, last fall was in July but she still endorses daily episodes of balance issues. Notes this worsens the longer she is sitting, her feet will become aching and painful bilaterally. Notes in July she did injure her left hip, x-ray was obtained after last appointment which did show some mild degenerative changes, follow with primary care for this. On exam she does have sensory deficits primarily in the left lower extremity with poor proprioception throughout lower extremities on Romberg testing. Does have a history of diabetes as well as heavy alcohol use for about 15 years, no longer. Discussed neuropathy versus lumbar radiculopathy, patient agreeable to obtain an EMG study for further evaluation. MRI of the brain and MRA of the brain without any signs of stroke, NPH, or other intracranial abnormality contributing to balance issues. Discussed conservative measures at this time and continue to follow with primary care for risk factor management. 5. Speech disturbance, unspecified type - ICD9: 784.59, ICD10: R47.9 Patient continues to have speech delay, no quieting of the voice. Notes has been ongoing since last summer, no intracranial etiology for this. Unclear etiology, there was some discussion of parkinsonism at last appointment but balance issues could also be due to other abnormalities noted above. Discussed speech therapy and patient would like to think about this. Patient also mentions some decreased vision in her left eye, again no intracranial etiology for vision abnormalities on the brain MRI. Discussed follow with her eye doctor, patient agrees and understands. Patient agreeable to treatment plan of care at this time, questions were answered. Patient to follow-up in [address] Jang. Carlene Vasquez PA-C Encounter Diagnosis ICD-10-CM 1. Coordination abnormal R27.8 2. Balance problem R26.89 3. Recurrent falls R29.6 4. Neuropathy G62.9 EMG(NEURO/NI) VITAMIN B12 PROT ELECT SERUM WITH BELEM AND INTERP METHYLMALONIC ACID VITAMIN B6/PYRIDOXIN 5. Speech disturbance, unspecified type R47.9 Return in about 3 months (around 04/15/2025). Chart, labs,and relevant images reviewed. Chief Complaint:Patient presents with: Follow Up Chart Review: 12/04/[address] Jang ASSESSMENT/PLAN: 1. Speech disturbance, unspecified type - ICD9: 784.59, ICD10: R47.9 (primary diagnosis) 2. Coordination abnormal - ICD9: 781.3, ICD10: R27.8 3. Balance problem - ICD9: 781.99, ICD10: R26.89 4. Recurrent falls - ICD9: V15.88, ICD10: R29.6 5. History of diabetes mellitus - ICD9: V12.29, ICD10: Z86.39 6. History of hyperlipidemia - ICD9: V12.29, ICD10: Z86.39 Patient with multiple complaints as above, of which etiology is uncertain. Appears were of acute onset and perhaps progressed since Summer 2023. Etiology uncertain but primary concern at this time is for possible cerebrovascular event given patient with multiple untreated risk factors including DM, HTN and HLD. Uncertain if symptoms perhaps worse in past, with patient now being evaluated almost 9 months out from onset (did not seek immediate medical assist). Also in ddx would be possible Parkinsonism given masked facies (decreased blink rate) and decreased RUE swing when ambulating, but no other s/s nor would I expect Parkinsonism to result in acute change in speech. Will initiate workup with MRI of brain along with MRA brain and carotids to evaluate for stroke or other intracranial source of symptoms as well as for large vessel disease also possibly contributing to symptoms. Depending on results, will determine additional workup at time of follow up. Given stroke risk factors will start on ASA 81mg daily with pt not reporting contraindications. Will get lipid panel with pt already fasting this AM. Also will check CBC, CMP and A1c. BP elevated and pt informed - goal <140/90 with glucose goal <140. Advised pt to see PCP immediately. Again not taking meds. 7. Pain in left hip - ICD9: 719.45, ICD10: M (more content not included)... Normal [facility] Methylmalonate SerPl-sCncon 01-13-2025 Methylmalonate [Moles/Vol] 0.23 umol/L Normal <=0.40 [facility] Comment on above: Order Comment: Speci orna Type: BLOOD SPECIMENOrdering Facility: [facility] Address: [address] [place] [address] Result Comment: This test was developed, and its performance characteristics determined by the [facility] Department of Pathology and Laboratory Medicine. It has not been cleared or approved by the FDA. The [facility] Department of Pathology and Laboratory Medicine is regulated under CLIA as qualified to perform high-complexity testing. This test is used for clinical purposes. It should not be regarded as investigational or for research. Performed By: #### 1 3964-2 ####[facility] [id number] [place] [address] [place] PROTEIN ELECTROPHORESIS SERU M WITH BELEM (P)on 01-13-2025 Albumin [Mass/Vol] 4.74 g/dL Normal 3.43-5.41 [facility] Comment on above: Order Comment: Desean rea Type: BLOOD SPECIMENOrdering Facility: [facility] Address: [address] [place] [address] Performed By: #### L [id number] ####[facility] LABIA [id number] [place] [address] [place] Alpha 1 globulin Elph [Mass/Vol] 0.22 g/dL Normal 0.18-0.43 [facility] Comment on above: Order Comment: Speci men Type: BLOOD SPECIMENOrdering Facility: [facility] Address: [address] [place] [address] Performed By: #### L [id number] ####[facility] LABIA [id number] [place] [address] [place] Alpha 2 globulin Elph [Mass/Vol] 0.80 g/dL Normal 0.42-0.98 [facility] Comment on above: Order Comment: Speci men Type: BLOOD SPECIMENOrdering Facility: [facility] Address: [address] [place] [address] Performed By: #### L [id number] ####[facility] [id number] [place] [address] [place] Beta globulin Elph [Mass/Vol] 0.71 g/dL Normal 0.61-1.17 [facility] Comment on above: Order Comment: Speci men Type: BLOOD SPECIMENOrdering Facility: [facility] Address: [address] [place] [address] Performed By: #### L [id number] ####[facility] LABIA [id number] [place] [address] [place] COMMENT (SERUM PROT ELECTRO) Monoclonal Protein analysis (immunofixation) is not indicated. Normal [facility] Comment on above: Order Comment: Speci men Type: BLOOD SPECIMENOrdering Facility: [facility] Address: [address] [place] [address] Performed By: #### L [id number] ####[facility] [id number] [place] [address] [place] Gamma globulin Elph [Mass/Vol] 0.72 g/dL Normal 0.53-1.51 [facility] Comment on above: Order Comment: Speci men Type: BLOOD SPECIMENOrdering Facility: [facility] Address: [address] [place] [address] Performed By: #### L [id number] ####[facility] [id number] [address] [address] [place] M-PROTEIN LOCATION Normal [facility] Comment on above: Order Comment: Speci men Type: BLOOD SPECIMENOrdering Facility: [facility] Address: [address] [place] [address] Result Comment: Not Applicable. Performed By: #### L [id number] ####[facility] [id number] [address] [address] [place] Protein Fractions [Interp] No definitive M protein is identified on protein electrophoresis. Normal No definitive M protein is identified on protein electrophoresi s. [facility] Comment on above: Order Comment: Speci men Type: BLOOD SPECIMENOrdering Facility: [facility] Address: [address] [place], [place] [id number] Performed By: #### L [id number] ####[facility] [id number] [address] [address] [place] Protein.monoclonal Elph [Mass/Vol] 0.00 g/dL Normal <=0.00 [facility] Comment on above: Order Comment: Speci men Type: BLOOD SPECIMENOrdering Facility: [facility] Address: [address] [place], [place] [id number] Performed By: #### L [id number] ####[facility] [id number] [place] [address] [place] SPE STAFF REVIEW Reviewed by Dr. Abad Obrien MD [facility] Comment on above: Order Comment: Speci men Type: BLOOD SPECIMENOrdering Facility: [facility] Address: [address] [place] [address] Performed By: #### L [id number] ####[facility] [id number] [place] [address] [place] Prot SerPl-mCncon 01-13-2025 Protein [Mass/Vol] 7.2 g/dL Normal 6.3-8.0 [facility] Comment on above: Order Comment: Speci men Type: BLOOD SPECIMENOrdering Facility: [facility] Address: [address] [place] [address] Performed By: #### 2 885-2, 2132-9 ####[facility] [id number] [place] [address] [facility] VITAMIN B6/PYRIDOXINon 01-13 VITAMIN B6 224.4 nmol/L High 20.0-125.0 [facility] Comment on above: Order Comment: Speci men Type: BLOOD SPECIMENOrdering Facility: [facility] Address: [address] [place] [address] Result Comment: INTE RPRETIVE INFORMATION: Vitamin B6 (Pyridoxal 5-Phosphate) Pyridoxal 5'-phosphate measured in a specimen collected following an 8-hour or overnight fast accurately indicates vitamin B6 nutritional status. Non-fasting specimen concentration reflects recent vitamin intake. This test was developed and its performance characteristics determined by [facility]. It has not been cleared or approved by the [place] Food and Drug Administration. This test was performed in a CLIA certified laboratory and is intended for clinical purposes. Performed By: [facility] [address] [place] [address] Survey Engineer: Dae Horvath MD, PhD CLIA Number: [id number] Performed By: #### V ITB6 ####[facility] [id number] [place] [address] Vit B12 SerPl-mCncon 025 Cobalamin (Vitamin B12) [Mass/Vol] 726 pg/mL Normal [id number] [facility] Comment on above: Order Comment: Speci men Type: BLOOD SPECIMENOrdering Facility: [facility] Address: [address] [place] [address] Performed By: #### 2 885-2, 2132-9 ####[facility] LABCLIA [id number] [facility] HOSPITALGuillermina [place] [id number] [place] MR Brain WO contraston 12-14 * * *Final Report* * * DATE OF EXAM: Dec 14 2024 9:55AM [facility] 0294 - MRI BRAIN WO IVCON / PROCEDURE REASON: multiple diagnoses * * * * Physician Interpretation * * * * EXAMINATION: MRI BRAIN WO IVCON, MRA CAROTID WO IVCON, MRA BRAIN WO IVCON CLINICAL HISTORY: Speech disturbance TECHNIQUE: Routine noncontrast MRI protocol including diffusion and gradient echo images. Intracranial and extracranial 3D [id number] MRA with post-processing performed at the modality and 2D multiplanar and 3D maximum intensity projections were created, reviewed and archived. COMPARISON: None. RESULT: BRAIN: Acute Change: There is no evidence of restricted diffusion to suggest an acute infarct. Hemorrhage: No evidence of prior parenchymal hemorrhage on the susceptibility weighted images. Mass Lesion/ Mass Effect: No evidence of an intracranial mass or extra-axial fluid collection. No mass effect. Chronic Change: The white matter is within normal limits of signal intensity for age. Parenchyma: Mild to moderate diffuse brain volume loss without lobar predominance. Ventricles: Normal caliber and morphology. Skull Base: Hypothalamic and pituitary region are grossly normal. Craniocervical junction is normal. No significant marrow replacement process. Vasculature: Major intracranial arterial structures, and dural venous sinuses show typical flow void, suggesting patency by spin echo criteria. Other: The visualized paranasal sinuses and mastoid air cells are clear. The orbits and extracranial soft tissues are unremarkable. Bilateral pseudophakia. INTRACRANIAL MRA: Anterior circulation: No evidence of flow-limiting stenosis, occlusion, or aneurysm. Posterior circulation: No evidence of flow-limiting stenosis, occlusion, or aneurysm. EXTRACRANIAL MRA: Carotid Stenosis: Right Common: No significant stenosis. Right Internal Plaque: Likely mild atherosclerotic plaque along the bifurcation. Right Internal Carotid Stenosis (% by NASCET Criteria): Less than 25% Left Common: No significant stenosis. Left Internal Carotid Plaque: Likely minimal atherosclerotic plaque along the bifurcation. Left Internal Carotid Stenosis (% by NASCET Criteria): 0 Cervical Vertebral Arteries: Patency: No evidence of flow-limiting stenosis or occlusion within the imaged portions. The origin of the left vertebral artery is not well visualized. Dominance: Right dominant. DIVISION OF RADIOLOGY Provider, Jennifer Hodge - 12/14/2024 * * *Final Report* * * DATE OF EXAM: Dec 14 2024 9:55AM [facility] 0294 - MRI BRAIN WO IVCON / PROCEDURE REASON: multiple diagnoses * * * * Physician Interpretation * * * * EXAMINATION: MRI BRAIN WO IVCON, MRA CAROTID WO IVCON, MRA BRAIN WO IVCON CLINICAL HISTORY: Speech disturbance TECHNIQUE: Routine noncontrast MRI protocol including diffusion and gradient echo images. Intracranial and extracranial 3D bytr-ak-[id number] MRA with post-processing performed at the modality and 2D multiplanar and 3D maximum intensity projections were created, reviewed and archived. COMPARISON: None. RESULT: BRAIN: Acute Change: There is no evidence of restricted diffusion to suggest an acute infarct. Hemorrhage: No evidence of prior parenchymal hemorrhage on the susceptibility weighted images. Mass Lesion/ Mass Effect: No evidence of an intracranial mass or extra-axial fluid collection. No mass effect. Chronic Change: The white matter is within normal limits of signal intensity for age. Parenchyma: Mild to moderate diffuse brain volume loss without lobar predominance. Ventricles: Normal caliber and morphology. Skull Base: Hypothalamic and pituitary region are grossly normal. Craniocervical junction is normal. No significant marrow replacement process. Vasculature: Major intracranial arterial structures, and dural venous sinuses show typical flow void, suggesting patency by spin echo criteria. Other: The visualized paranasal sinuses and mastoid air cells are clear. The orbits and extracranial soft tissues are unremarkable. Bilateral pseudophakia. INTRACRANIAL MRA: Anterior circulation: No evidence of flow-limiting stenosis, occlusion, or aneurysm. Posterior circulation: No evidence of flow-limiting stenosis, occlusion, or aneurysm. EXTRACRANIAL MRA: Carotid Stenosis: Right Common: No significant stenosis. Right Internal Plaque: Likely mild atherosclerotic plaque along the bifurcation. Right Internal Carotid Stenosis (% by NASCET Criteria): Less than 25% Left Common: No significant stenosis. Left Internal Carotid Plaque: Likely minimal atherosclerotic plaque along the bifurcation. Left Internal Carotid Stenosis (% by NASCET Criteria): 0 Cervical Vertebral Arteries: Patency: No evidence of flow-limiting stenosis or occlusion within the imaged portions. The origin of the left vertebral artery is not well visualized. Dominance: Right dominant. IMPRESSION IMPRESSION: No acute intracranial abnormality. No evidence of flow-limiting stenosis or occlusion involving the major arteries of the head and neck. Likely atherosclerotic plaque along the right greater than left carotid bifurcations with less than 25% stenosis of the proximal right ICA, however CTA could provide further evaluation if clinically warranted. File Keeper: PETER Transcribe Date/Time: Dec 14 2024 9:56A Dictated by : GLORIA YU MD This examination was interpreted and the report reviewed and electronically signed by: GLORIA YU MD on Dec 14 2024 10:02AM [facility] MRA BRAIN WO IVCONon 025 MRA BRAIN WO IVCON * * *Final Report* * * DATE OF EXAM: Dec 14 2024 9:55AM [facility] 0272 - MRA BRAIN WO IVCON / PROCEDURE REASON: multiple diagnoses * * * * Physician Interpretation * * * * EXAMINATION: MRI BRAIN WO IVCON, MRA CAROTID WO IVCON, MRA BRAIN WO IVCON CLINICAL HISTORY: Speech disturbance TECHNIQUE: Routine noncontrast MRI protocol including diffusion and gradient echo images. Intracranial and extracranial 3D fauz-fq-fudcnf MRA with post-processing performed at the modality and 2D multiplanar and 3D maximum intensity projections were created, reviewed and archived. COMPARISON: None. RESULT: BRAIN: Acute Change: There is no evidence of restricted diffusion to suggest an acute infarct. Hemorrhage: No evidence of prior parenchymal hemorrhage on the susceptibility weighted images. Mass Lesion/ Mass Effect: No evidence of an intracranial mass or extra-axial fluid collection. No mass effect. Chronic Change: The white matter is within normal limits of signal intensity for age. Parenchyma: Mild to moderate diffuse brain volume loss without lobar predominance. Ventricles: Normal caliber and morphology. Skull Base: Hypothalamic and pituitary region are grossly normal. Craniocervical junction is normal. No significant marrow replacement process. Vasculature: Major intracranial arterial structures, and dural venous sinuses show typical flow void, suggesting patency by spin echo criteria. Other: The visualized paranasal sinuses and mastoid air cells are clear. The orbits and extracranial soft tissues are unremarkable. Bilateral pseudophakia. INTRACRANIAL MRA: Anterior circulation: No evidence of flow-limiting stenosis, occlusion, or aneurysm. Posterior circulation: No evidence of flow-limiting stenosis, occlusion, or aneurysm. EXTRACRANIAL MRA: Carotid Stenosis: Right Common: No significant stenosis. Right Internal Plaque: Likely mild atherosclerotic plaque along the bifurcation. Right Internal Carotid Stenosis (% by NASCET Criteria): Less than 25% Left Common: No significant stenosis. Left Internal Carotid Plaque: Likely minimal atherosclerotic plaque along the bifurcation. Left Internal Carotid Stenosis (% by NASCET Criteria): 0 Cervical Vertebral Arteries: Patency: No evidence of flow-limiting stenosis or occlusion within the imaged portions. The origin of the left vertebral artery is not well visualized. Dominance: Right dominant. IMPRESSION: No acute intracranial abnormality. No evidence of flow-limiting stenosis or occlusion involving the major arteries of the head and neck. Likely atherosclerotic plaque along the right greater than left carotid bifurcations with less than 25% stenosis of the proximal right ICA, however CTA could provide further evaluation if clinically warranted. File Keeper: [facility] HOSPITALLala Transcribe Date/Time: Dec 14 2024 9:56A Dictated by : GLORIA YU MD This examination was interpreted and the report reviewed and electronically signed by: GLORIA YU MD on Dec 14 2024 10:02AM EST [id number] N Normal [facility] MRA CAROTID WO IVCONon 12-14 MRA CAROTID WO IVCON * * *Final Report* * * DATE OF EXAM: Dec 14 2024 9:55AM [facility] 0275 - MRA CAROTID WO IVCON / PROCEDURE REASON: multiple diagnoses * * * * Physician Interpretation * * * * EXAMINATION: MRI BRAIN WO IVCON, MRA CAROTID WO IVCON, MRA BRAIN WO IVCON CLINICAL HISTORY: Speech disturbance TECHNIQUE: Routine noncontrast MRI protocol including diffusion and gradient echo images. Intracranial and extracranial 3D gchp-qu-ouflnt MRA with post-processing performed at the modality and 2D multiplanar and 3D maximum intensity projections were created, reviewed and archived. COMPARISON: None. RESULT: BRAIN: Acute Change: There is no evidence of restricted diffusion to suggest an acute infarct. Hemorrhage: No evidence of prior parenchymal hemorrhage on the susceptibility weighted images. Mass Lesion/ Mass Effect: No evidence of an intracranial mass or extra-axial fluid collection. No mass effect. Chronic Change: The white matter is within normal limits of signal intensity for age. Parenchyma: Mild to moderate diffuse brain volume loss without lobar predominance. Ventricles: Normal caliber and morphology. Skull Base: Hypothalamic and pituitary region are grossly normal. Craniocervical junction is normal. No significant marrow replacement process. Vasculature: Major intracranial arterial structures, and dural venous sinuses show typical flow void, suggesting patency by spin echo criteria. Other: The visualized paranasal sinuses and mastoid air cells are clear. The orbits and extracranial soft tissues are unremarkable. Bilateral pseudophakia. INTRACRANIAL MRA: Anterior circulation: No evidence of flow-limiting stenosis, occlusion, or aneurysm. Posterior circulation: No evidence of flow-limiting stenosis, occlusion, or aneurysm. EXTRACRANIAL MRA: Carotid Stenosis: Right Common: No significant stenosis. Right Internal Plaque: Likely mild atherosclerotic plaque along the bifurcation. Right Internal Carotid Stenosis (% by NASCET Criteria): Less than 25% Left Common: No significant stenosis. Left Internal Carotid Plaque: Likely minimal atherosclerotic plaque along the bifurcation. Left Internal Carotid Stenosis (% by NASCET Criteria): 0 Cervical Vertebral Arteries: Patency: No evidence of flow-limiting stenosis or occlusion within the imaged portions. The origin of the left vertebral artery is not well visualized. Dominance: Right dominant. IMPRESSION: No acute intracranial abnormality. No evidence of flow-limiting stenosis or occlusion involving the major arteries of the head and neck. Likely atherosclerotic plaque along the right greater than left carotid bifurcations with less than 25% stenosis of the proximal right ICA, however CTA could provide further evaluation if clinically warranted. File Keeper: PETER Transcribe Date/Time: Dec 14 2024 9:56A Dictated by : GLORIA YU MD This examination was interpreted and the report reviewed and electronically signed by: GLORIA YU MD on Dec 14 2024 10:02AM EST [id number] N Normal [facility] MRA Head vessels WO contrast on 12-14-2024 * * *Final Report* * * DATE OF EXAM: Dec 14 2024 9:55AM [facility] 0272 - MRA BRAIN WO IVCON / PROCEDURE REASON: multiple diagnoses * * * * Physician Interpretation * * * * EXAMINATION: MRI BRAIN WO IVCON, MRA CAROTID WO IVCON, MRA BRAIN WO IVCON CLINICAL HISTORY: Speech disturbance TECHNIQUE: Routine noncontrast MRI protocol including diffusion and gradient echo images. Intracranial and extracranial 3D pqeo-yq-csjobl MRA with post-processing performed at the modality and 2D multiplanar and 3D maximum intensity projections were created, reviewed and archived. COMPARISON: None. RESULT: BRAIN: Acute Change: There is no evidence of restricted diffusion to suggest an acute infarct. Hemorrhage: No evidence of prior parenchymal hemorrhage on the susceptibility weighted images. Mass Lesion/ Mass Effect: No evidence of an intracranial mass or extra-axial fluid collection. No mass effect. Chronic Change: The white matter is within normal limits of signal intensity for age. Parenchyma: Mild to moderate diffuse brain volume loss without lobar predominance. Ventricles: Normal caliber and morphology. Skull Base: Hypothalamic and pituitary region are grossly normal. Craniocervical junction is normal. No significant marrow replacement process. Vasculature: Major intracranial arterial structures, and dural venous sinuses show typical flow void, suggesting patency by spin echo criteria. Other: The visualized paranasal sinuses and mastoid air cells are clear. The orbits and extracranial soft tissues are unremarkable. Bilateral pseudophakia. INTRACRANIAL MRA: Anterior circulation: No evidence of flow-limiting stenosis, occlusion, or aneurysm. Posterior circulation: No evidence of flow-limiting stenosis, occlusion, or aneurysm. EXTRACRANIAL MRA: Carotid Stenosis: Right Common: No significant stenosis. Right Internal Plaque: Likely mild atherosclerotic plaque along the bifurcation. Right Internal Carotid Stenosis (% by NASCET Criteria): Less than 25% Left Common: No significant stenosis. Left Internal Carotid Plaque: Likely minimal atherosclerotic plaque along the bifurcation. Left Internal Carotid Stenosis (% by NASCET Criteria): 0 Cervical Vertebral Arteries: Patency: No evidence of flow-limiting stenosis or occlusion within the imaged portions. The origin of the left vertebral artery is not well visualized. Dominance: Right dominant. DIVISION OF RADIOLOGY Provider, [facility] - 12/14/2024 * * *Final Report* * * DATE OF EXAM: Dec 14 2024 9:55AM [facility] 0272 - MRA BRAIN WO IVCON / PROCEDURE REASON: multiple diagnoses * * * * Physician Interpretation * * * * EXAMINATION: MRI BRAIN WO IVCON, MRA CAROTID WO IVCON, MRA BRAIN WO IVCON CLINICAL HISTORY: Speech disturbance TECHNIQUE: Routine noncontrast MRI protocol including diffusion and gradient echo images. Intracranial and extracranial 3D svkv-xe-joxatr MRA with post-processing performed at the modality and 2D multiplanar and 3D maximum intensity projections were created, reviewed and archived. COMPARISON: None. RESULT: BRAIN: Acute Change: There is no evidence of restricted diffusion to suggest an acute infarct. Hemorrhage: No evidence of prior parenchymal hemorrhage on the susceptibility weighted images. Mass Lesion/ Mass Effect: No evidence of an intracranial mass or extra-axial fluid collection. No mass effect. Chronic Change: The white matter is within normal limits of signal intensity for age. Parenchyma: Mild to moderate diffuse brain volume loss without lobar predominance. Ventricles: Normal caliber and morphology. Skull Base: Hypothalamic and pituitary region are grossly normal. Craniocervical junction is normal. No significant marrow replacement process. Vasculature: Major intracranial arterial structures, and dural venous sinuses show typical flow void, suggesting patency by spin echo criteria. Other: The visualized paranasal sinuses and mastoid air cells are clear. The orbits and extracranial soft tissues are unremarkable. Bilateral pseudophakia. INTRACRANIAL MRA: Anterior circulation: No evidence of flow-limiting stenosis, occlusion, or aneurysm. Posterior circulation: No evidence of flow-limiting stenosis, occlusion, or aneurysm. EXTRACRANIAL MRA: Carotid Stenosis: Right Common: No significant stenosis. Right Internal Plaque: Likely mild atherosclerotic plaque along the bifurcation. Right Internal Carotid Stenosis (% by NASCET Criteria): Less than 25% Left Common: No significant stenosis. Left Internal Carotid Plaque: Likely minimal atherosclerotic plaque along the bifurcation. Left Internal Carotid Stenosis (% by NASCET Criteria): 0 Cervical Vertebral Arteries: Patency: No evidence of flow-limiting stenosis or occlusion within the imaged portions. The origin of the left vertebral artery is not well visualized. Dominance: Right dominant. IMPRESSION IMPRESSION: No acute intracranial abnormality. No evidence of flow-limiting stenosis or occlusion involving the major arteries of the head and neck. Likely atherosclerotic plaque along the right greater than left carotid bifurcations with less than 25% stenosis of the proximal right ICA, however CTA could provide further evaluation if clinically warranted. File Keeper: PETER Transcribe Date/Time: Dec 14 2024 9:56A Dictated by : GLORIA YU MD This examination was interpreted and the report reviewed and electronically signed by: GLORIA YU MD on Dec 14 2024 10:02AM [facility] MRA Neck vessels WO contrast on 12-14-2024 * * *Final Report* * * DATE OF EXAM: Dec 14 2024 9:55AM [facility] 0275 - MRA CAROTID WO IVCON / PROCEDURE REASON: multiple diagnoses * * * * Physician Interpretation * * * * EXAMINATION: MRI BRAIN WO IVCON, MRA CAROTID WO IVCON, MRA BRAIN WO IVCON CLINICAL HISTORY: Speech disturbance TECHNIQUE: Routine noncontrast MRI protocol including diffusion and gradient echo images. Intracranial and extracranial 3D swjh-wx-tyfkrg MRA with post-processing performed at the modality and 2D multiplanar and 3D maximum intensity projections were created, reviewed and archived. COMPARISON: None. RESULT: BRAIN: Acute Change: There is no evidence of restricted diffusion to suggest an acute infarct. Hemorrhage: No evidence of prior parenchymal hemorrhage on the susceptibility weighted images. Mass Lesion/ Mass Effect: No evidence of an intracranial mass or extra-axial fluid collection. No mass effect. Chronic Change: The white matter is within normal limits of signal intensity for age. Parenchyma: Mild to moderate diffuse brain volume loss without lobar predominance. Ventricles: Normal caliber and morphology. Skull Base: Hypothalamic and pituitary region are grossly normal. Craniocervical junction is normal. No significant marrow replacement process. Vasculature: Major intracranial arterial structures, and dural venous sinuses show typical flow void, suggesting patency by spin echo criteria. Other: The visualized paranasal sinuses and mastoid air cells are clear. The orbits and extracranial soft tissues are unremarkable. Bilateral pseudophakia. INTRACRANIAL MRA: Anterior circulation: No evidence of flow-limiting stenosis, occlusion, or aneurysm. Posterior circulation: No evidence of flow-limiting stenosis, occlusion, or aneurysm. EXTRACRANIAL MRA: Carotid Stenosis: Right Common: No significant stenosis. Right Internal Plaque: Likely mild atherosclerotic plaque along the bifurcation. Right Internal Carotid Stenosis (% by NASCET Criteria): Less than 25% Left Common: No significant stenosis. Left Internal Carotid Plaque: Likely minimal atherosclerotic plaque along the bifurcation. Left Internal Carotid Stenosis (% by NASCET Criteria): 0 Cervical Vertebral Arteries: Patency: No evidence of flow-limiting stenosis or occlusion within the imaged portions. The origin of the left vertebral artery is not well visualized. Dominance: Right dominant. DIVISION OF RADIOLOGY Provider, [facility] - 12/14/2024 * * *Final Report* * * DATE OF EXAM: Dec 14 2024 9:55AM [facility] 0275 - MRA CAROTID WO IVCON / PROCEDURE REASON: multiple diagnoses * * * * Physician Interpretation * * * * EXAMINATION: MRI BRAIN WO IVCON, MRA CAROTID WO IVCON, MRA BRAIN WO IVCON CLINICAL HISTORY: Speech disturbance TECHNIQUE: Routine noncontrast MRI protocol including diffusion and gradient echo images. Intracranial and extracranial 3D fdcq-pi-fnwhpm MRA with post-processing performed at the modality and 2D multiplanar and 3D maximum intensity projections were created, reviewed and archived. COMPARISON: None. RESULT: BRAIN: Acute Change: There is no evidence of restricted diffusion to suggest an acute infarct. Hemorrhage: No evidence of prior parenchymal hemorrhage on the susceptibility weighted images. Mass Lesion/ Mass Effect: No evidence of an intracranial mass or extra-axial fluid collection. No mass effect. Chronic Change: The white matter is within normal limits of signal intensity for age. Parenchyma: Mild to moderate diffuse brain volume loss without lobar predominance. Ventricles: Normal caliber and morphology. Skull Base: Hypothalamic and pituitary region are grossly normal. Craniocervical junction is normal. No significant marrow replacement process. Vasculature: Major intracranial arterial structures, and dural venous sinuses show typical flow void, suggesting patency by spin echo criteria. Other: The visualized paranasal sinuses and mastoid air cells are clear. The orbits and extracranial soft tissues are unremarkable. Bilateral pseudophakia. INTRACRANIAL MRA: Anterior circulation: No evidence of flow-limiting stenosis, occlusion, or aneurysm. Posterior circulation: No evidence of flow-limiting stenosis, occlusion, or aneurysm. EXTRACRANIAL MRA: Carotid Stenosis: Right Common: No significant stenosis. Right Internal Plaque: Likely mild atherosclerotic plaque along the bifurcation. Right Internal Carotid Stenosis (% by NASCET Criteria): Less than 25% Left Common: No significant stenosis. Left Internal Carotid Plaque: Likely minimal atherosclerotic plaque along the bifurcation. Left Internal Carotid Stenosis (% by NASCET Criteria): 0 Cervical Vertebral Arteries: Patency: No evidence of flow-limiting stenosis or occlusion within the imaged portions. The origin of the left vertebral artery is not well visualized. Dominance: Right dominant. IMPRESSION IMPRESSION: No acute intracranial abnormality. No evidence of flow-limiting stenosis or occlusion involving the major arteries of the head and neck. Likely atherosclerotic plaque along the right greater than left carotid bifurcations with less than 25% stenosis of the proximal right ICA, however CTA could provide further evaluation if clinically warranted. File Keeper: PETER Transcribe Date/Time: Dec 14 2024 9:56A Dictated by : GLORIA YU MD This examination was interpreted and the report reviewed and electronically signed by: GLORIA YU MD on Dec 14 2024 10:02AM EST [facility] MRI BRAIN WO IVCONon 025 MRI BRAIN WO IVCON * * *Final Report* * * DATE OF EXAM: Dec 14 2024 9:55AM [facility] 0294 - MRI BRAIN WO IVCON / PROCEDURE REASON: multiple diagnoses * * * * Physician Interpretation * * * * EXAMINATION: MRI BRAIN WO IVCON, MRA CAROTID WO IVCON, MRA BRAIN WO IVCON CLINICAL HISTORY: Speech disturbance TECHNIQUE: Routine noncontrast MRI protocol including diffusion and gradient echo images. Intracranial and extracranial 3D uxie-cd-wiygvn MRA with post-processing performed at the modality and 2D multiplanar and 3D maximum intensity projections were created, reviewed and archived. COMPARISON: None. RESULT: BRAIN: Acute Change: There is no evidence of restricted diffusion to suggest an acute infarct. Hemorrhage: No evidence of prior parenchymal hemorrhage on the susceptibility weighted images. Mass Lesion/ Mass Effect: No evidence of an intracranial mass or extra-axial fluid collection. No mass effect. Chronic Change: The white matter is within normal limits of signal intensity for age. Parenchyma: Mild to moderate diffuse brain volume loss without lobar predominance. Ventricles: Normal caliber and morphology. Skull Base: Hypothalamic and pituitary region are grossly normal. Craniocervical junction is normal. No significant marrow replacement process. Vasculature: Major intracranial arterial structures, and dural venous sinuses show typical flow void, suggesting patency by spin echo criteria. Other: The visualized paranasal sinuses and mastoid air cells are clear. The orbits and extracranial soft tissues are unremarkable. Bilateral pseudophakia. INTRACRANIAL MRA: Anterior circulation: No evidence of flow-limiting stenosis, occlusion, or aneurysm. Posterior circulation: No evidence of flow-limiting stenosis, occlusion, or aneurysm. EXTRACRANIAL MRA: Carotid Stenosis: Right Common: No significant stenosis. Right Internal Plaque: Likely mild atherosclerotic plaque along the bifurcation. Right Internal Carotid Stenosis (% by NASCET Criteria): Less than 25% Left Common: No significant stenosis. Left Internal Carotid Plaque: Likely minimal atherosclerotic plaque along the bifurcation. Left Internal Carotid Stenosis (% by NASCET Criteria): 0 Cervical Vertebral Arteries: Patency: No evidence of flow-limiting stenosis or occlusion within the imaged portions. The origin of the left vertebral artery is not well visualized. Dominance: Right dominant. IMPRESSION: No acute intracranial abnormality. No evidence of flow-limiting stenosis or occlusion involving the major arteries of the head and neck. Likely atherosclerotic plaque along the right greater than left carotid bifurcations with less than 25% stenosis of the proximal right ICA, however CTA could provide further evaluation if clinically warranted. File Keeper: [facility] Transcribe Date/Time: Dec 14 2024 9:56A Dictated by : GLORIA YU MD This examination was interpreted and the report reviewed and electronically signed by: GLORIA YU MD on Dec 14 2024 10:02AM EST [id number] Normal [facility] No Panel Informationon 12-14 IMPRESSION: No acute intracranial abnormality. No evidence of flow-limiting stenosis or occlusion involving the major arteries of the head and neck. Likely atherosclerotic plaque along the right greater than left carotid bifurcations with less than 25% stenosis of the proximal right ICA, however CTA could provide further evaluation if clinically warranted. File Keeper: [facility] Transcribe Date/Time: Dec 14 2024 9:56A Dictated by : GLORIA YU MD This examination was interpreted and the report reviewed and electronically signed by: GLORIA YU MD on Dec 14 2024 10:02AM EST DIVISION OF RADIOLOGY Radiology Study observation (narrative) [facility] No Panel InformationOrdered By: Ccf Provider on 12-14-2024 [facility] CBC W Auto Differential pane l (Bld)on 12-04-2024 Basophils (Bld) [#/Vol] [facility] Basophils/100 WBC (Bld) 0.4 % [facility] Differential cell count method Nom (Bld) Auto [facility] Eosinophils (Bld) [#/Vol] 0.13 10*3/uL [facility] Eosinophils/100 WBC (Bld) 2.6 % [facility] Erythrocyte distribution width (RBC) [Ratio] 13.8 % 11.5 - 15.0 % [facility] Hematocrit (Bld) [Volume fraction] 44.3 % 36.0 - 46.0 % [facility] Hemoglobin (Bld) [Mass/Vol] 15.1 g/dL 11.5 - 15.5 g/dL [facility] Immature granulocytes (Bld) [#/Vol] [facility] Immature granulocytes/100 WBC (Bld) 0.2 % [facility] Interpretation and review of laboratory results Abnormal [facility] Lymphocytes (Bld) [#/Vol] 2.14 10*3/uL [facility] Lymphocytes/100 WBC (Bld) 42.5 % [facility] MCH (RBC) [Entitic mass] 29.1 pg 26.0 - 34.0 pg [facility] MCHC (RBC) [Mass/Vol] 34.1 g/dL 30.5 - 36.0 g/dL [facility] MCV (RBC) [Entitic vol] 85.4 fL 80.0 - 100.0 fL [facility] Monocytes (Bld) [#/Vol] 0.56 10*3/uL NINF [facility] Monocytes/100 WBC (Bld) 11.1 % [facility] Neutrophils (Bld) [#/Vol] 2.18 10*3/uL [facility] Neutrophils/100 WBC (Bld) 43.2 % [facility] Nucleated RBC (Bld) [#/Vol] NINF [facility] Nucleated RBC/100 WBC (Bld) [Ratio] 0 % /100 WBC [facility] Platelet mean volume (Bld) [Entitic vol] 11.1 fL 9.0 - 12.7 fL [facility] Platelets (Bld) [#/Vol] 147 10*3/uL Low [facility] RBC (Bld) [#/Vol] 5.19 10*6/uL 3.90 - 5.2 0 m/uL [facility] WBC (Bld) [#/Vol] 5.04 10*3/uL [facility] Basophils (Bld) [#/Vol] 10*3/uL Normal <0.11 [facility] Comment on above: Order Comment: Speci men Type: BLOOD SPECIMENOrdering Facility: [facility] Address: [address] [place] [address] Performed By: #### 5 7021-8 ####[facility] DAVONTE [facility]Z [id number] [address] STATES OF [facility] Basophils/100 WBC (Bld) 0.4 % Normal [facility] Comment on above: Order Comment: Speci men Type: BLOOD SPECIMENOrdering Facility: [facility] Address: [address] [place] [address] Performed By: #### 5 7021-8 ####[facility] MILLWNCLIA [id number] [place] [address] [place] Differential cell count method Nom (Bld) Auto Normal [facility] Comment on above: Order Comment: Speci men Type: BLOOD SPECIMENOrdering Facility: [facility] Address: [address] [place] [address] Performed By: #### 5 7021-8 ####[facility] CENTERLIA [id number] [place] [address] [place] Eosinophils (Bld) [#/Vol] 0.13 10*3/uL Normal <0.46 [facility] Comment on above: Order Comment: Speci men Type: BLOOD SPECIMENOrdering Facility: [facility] Address: [address] [place] [address] Performed By: #### 5 7021-8 ####[facility] [id number] [place] [address] [place] Eosinophils/100 WBC (Bld) 2.6 % Normal [facility] Comment on above: Order Comment: Speci men Type: BLOOD SPECIMENOrdering Facility: [facility] Address: [address] [place] [address] Performed By: #### 5 7021-8 ####[facility]ENTERLIA [id number] [place] [address] [place] Erythrocyte distribution width (RBC) [Ratio] 13.8 % Normal 11.5-15.0 [facility] Comment on above: Order Comment: Speci men Type: BLOOD SPECIMENOrdering Facility: [facility] Address: [address] [place] [address] Performed By: #### 5 7021-8 ####[facility]PITALNCLIA [id number] [place] [address] [place] Hematocrit (Bld) [Volume fraction] 44.3 % Normal 36.0-46.0 [facility] Comment on above: Order Comment: Speci men Type: BLOOD SPECIMENOrdering Facility: [facility] Address: [address] [place] [address] Performed By: #### 5 7021-8 ####[facility] [id number] [place] [address] [place] Hemoglobin (Bld) [Mass/Vol] 15.1 g/dL Normal 11.5-15.5 [facility] Comment on above: Order Comment: Speci men Type: BLOOD SPECIMENOrdering Facility: [facility] Address: [address] [place] [address] Performed By: #### 5 7021-8 ####[facility] [id number] [place] [address] [place] Immature granulocytes (Bld) [#/Vol] 10*3/uL Normal <0.10 [facility] Comment on above: Order Comment: Speci men Type: BLOOD SPECIMENOrdering Facility: [facility] Address: [address] [place] [address] Performed By: #### 5 7021-8 ####[facility] [id number] [place] [address] [place] Immature granulocytes/100 WBC (Bld) 0.2 % Normal [facility] Comment on above: Order Comment: Speci men Type: BLOOD SPECIMENOrdering Facility: [facility] Address: [address] [place], [place] [address] Performed By: #### 5 7021-8 ####[facility] [id number] [place] [address] [place] Lymphocytes (Bld) [#/Vol] 2.14 10*3/uL Normal 1.00-4.00 [facility] Comment on above: Order Comment: Speci men Type: BLOOD SPECIMENOrdering Facility: [facility] Address: [address] [place] [address] Performed By: #### 5 7021-8 ####[facility] CLAUDEELVIRA [id number] [place] [address] [place] Lymphocytes/100 WBC (Bld) 42.5 % Normal [facility] Comment on above: Order Comment: Speci men Type: BLOOD SPECIMENOrdering Facility: [facility] Address: [address] [place] [address] Performed By: #### 5 7021-8 ####[facility] HOSPITALNCGÓMEZ [id number] [place] [address] [place] MCH (RBC) [Entitic mass] 29.1 pg Normal 26.0-34.0 [facility] Comment on above: Order Comment: Speci men Type: BLOOD SPECIMENOrdering Facility: [facility] Address: [address] [place] [address] Performed By: #### 5 7021-8 ####[facility] HOSPITALNCGÓMEZ [id number] [place] [address] [place] MCHC (RBC) [Mass/Vol] 34.1 g/dL Normal 30.5-36.0 [facility] Comment on above: Order Comment: Speci men Type: BLOOD SPECIMENOrdering Facility: [facility] Address: [address] [place] [address] Performed By: #### 5 7021-8 ####[facility] HOSPITALNCLIHouston [id number] [place] [address] [place] MCV (RBC) [Entitic vol] 85.4 fL Normal 80.0-100.0 [facility] Comment on above: Order Comment: Speci men Type: BLOOD SPECIMENOrdering Facility: [facility] Address: [address] [place] [address] Performed By: #### 5 7021-8 ####[facility] MILLWNCLIA [id number] [place] [address] [place] Monocytes (Bld) [#/Vol] 0.56 10*3/uL Normal <0.87 [facility] Comment on above: Order Comment: Speci men Type: BLOOD SPECIMENOrdering Facility: [facility] Address: [address] [place] [address] Performed By: #### 5 7021-8 ####[facility]ENTERLIA [id number] [place] [address] [place] Monocytes/100 WBC (Bld) 11.1 % Normal [facility] Comment on above: Order Comment: Speci men Type: BLOOD SPECIMENOrdering Facility: [facility] Address: [address] [place] [address] Performed By: #### 5 7021-8 ####[facility]ENTERLIA [id number] [place] [address] [place] Neutrophils (Bld) [#/Vol] 2.18 10*3/uL Normal 1.45-7.50 [facility] Comment on above: Order Comment: Speci men Type: BLOOD SPECIMENOrdering Facility: [facility] Address: [address] [place] [address] Performed By: #### 5 7021-8 ####[facility] EMERGENCYWNCLIA [id number] [place] [address] [place] Neutrophils/100 WBC (Bld) 43.2 % Normal [facility] Comment on above: Order Comment: Speci men Type: BLOOD SPECIMENOrdering Facility: [facility] Address: [address] [place] [address] Performed By: #### 5 7021-8 ####[facility]ENTERLIA [id number] [place] [address] [place] Nucleated RBC (Bld) [#/Vol] 10*3/uL Normal <0.01 [facility] Comment on above: Order Comment: Speci men Type: BLOOD SPECIMENOrdering Facility: [facility] Address: [address] [place] [address] Performed By: #### 5 7021-8 ####[facility] [id number] [place] [address] [place] Nucleated RBC/100 WBC (Bld) [Ratio] 0.0 /100 WBC Normal [facility] Comment on above: Order Comment: Speci men Type: BLOOD SPECIMENOrdering Facility: [facility] Address: [address] [place] [address] Performed By: #### 5 7021-8 ####[facility] [id number] [place] [address] [place] Platelet mean volume (Bld) [Entitic vol] 11.1 fL Normal 9.0-12.7 [facility] Comment on above: Order Comment: Speci men Type: BLOOD SPECIMENOrdering Facility: [facility] Address: [address] [place] [address] Performed By: #### 5 7021-8 ####[facility] [id number] [place] [address] [place] Platelets (Bld) [#/Vol] 147 10*3/uL Low 150-400 [facility] Comment on above: Order Comment: Speci men Type: BLOOD SPECIMENOrdering Facility: [facility] Address: [address] [place] [address] Performed By: #### 5 7021-8 ####[facility] [id number] [place] [address] [place] RBC (Bld) [#/Vol] 5.19 10*6/uL Normal 3.90-5.20 [facility] Comment on above: Order Comment: Speci men Type: BLOOD SPECIMENOrdering Facility: [facility] Address: [address] [id number] Performed By: #### 5 7021-8 ####[facility] DAVONTE MULLINSNCLIA [id number] [place] [address] [place] [facility] [place] WBC (Bld) [#/Vol] 5.04 10*3/uL Normal 3.70-11.00 [facility] Comment on above: Order Comment: Speci men Type: BLOOD SPECIMENOrdering Facility: [facility] Address: [address] [place], [place] [address] Performed By: #### 5 7021-8 ####[facility] DAVONTE MATIASNCLIA [id number] [address] OF [facility] CNOVon 12-04-2024 CNOV Office Visit (GALINDO ) AIMEE CANCINO ([id number]) 1945 F Date Time Provider Department 12/04/24 8:00 AM CHAUNCEY JANG JR During your visit today, we recorded the following information about you: Pulse Respiration Blood pressure Weight 86/minute 18/minute 172/90 88.2 kg Chauncey Jang Jr., MD 12/04/2024 9:03 AM Signed NEW PATIENT (CONSULT) HISTORY AND PHYSICAL EXAM PRIMARY CARE PHYSICIAN: Jose F Zamora MD REASON FOR CONSULT: Multiple symptoms REFERRING PHYSICIAN: No ref. provider found CHIEF COMPLAINT: See below HISTORY OF PRESENT ILLNESS: Aimee Cancino is a 79 year old female, BMI 34.44 kg/m2 with a PMH significant for that below. Note that she is not on the meds listed as patient stated that she wanted to go holistic". Review of prior imaging shows carotid ultrasounds in 2019 that per report showed no significant stenosis (<30%) manish. Patient brings in pages of symptoms - in summary reports halting speech, balance off, change in handwriting. States symptoms started in March of 2024. She reports she thought it was due to two COVID shots she had, but at Thanksgiving friend states she has been struggling for words. She sought not medical attention for this and did not report symptoms to her PCP. She reports that symptoms have been on coming for a long time - when asked to be more specific, pt states thinks she had a problem with speech in March and it is becoming progressively worse. She wonders if she had TIAs along the line. She is not on ASA or other antiplt med. She reports glucose at home is <150 (checking once per day). BP has been high stating it goes as high as 145. When I explained that BP elevated today, pt states due to white coat syndrome. She denies history of HLD. Family history of Alzhemier's in mother and ALS in father. Patient reports no cognitive issues. Then indicates that she knows what she wants to say but comes out garbled". When asked about balance issues, states there all the time, including falling in garden in March and falling over a vacuum in - limited details. Patient is also having pain in the L hip from when she fell - never had imaging. Pain not radiating into the groin region. States when she fell in July she hit her head - no proceeding headaches. No visual changes. No vertigo. No issues driving. Pt states handwriting changed, but provides sample and appears clear without micro graphia. Then states takes longer to write. No issues with reading books. No hand deficits. Cholesterol, Total Date Value Ref Range Status 04/20/2023 194 <200 mg/dL Final Comment: <200 mg/dL, Desirable 200-239 mg/dL, Borderline high >239 mg/dL, High HDL Cholesterol Date Value Ref Range Status 04/20/2023 67 >39 mg/dL Final Comment: 40-59 mg/dL, Acceptable >59 mg/dL, High: Negative risk factor for coronary heart disease <40 mg/dL, Low: Positive risk factor for coronary heart disease LDL Cholesterol Date Value Ref Range Status 04/20/2023 111 (H) <100 mg/dL Final Comment: <100 mg/dL, Optimal 100-129 mg/dL, Near optimal/above optimal 130-159 mg/dL, Borderline high 160-189 mg/dL, High >189 mg/dL, Very high Secondary prevention optimal LDL Cholesterol levels are recommended to be < 70 mg/dL Triglyceride Date Value Ref Range Status 04/20/2023 79 <150 mg/dL Final Comment: <150 mg/dL, Normal 150-199 mg/dL, Borderline high 200-499 mg/dL, High >499 mg/dL, Very high Hemoglobin A1C (%) Date Value 04/20/2023 6.2 09/07/2021 6.2 REVIEW OF SYSTEMS GENERAL:No weight loss, malaise or fevers. HEENT:Negative for frequent or significant headaches, No changes in hearing or vision, no nose bleeds or other nasal problems NECK:Negative for lumps, goiter, pain and significant neck swelling RESPIRATORY: Negative for cough, wheezing or shortness of breath. CARDIOVASCULAR: Negative for chest pain, leg swelling or palpitations. GASTROINTESTINAL: Negative for abdominal discomfort, blood in stools or black stools or change in bowel habits GENITOURINARY: No history of dysuria, frequency or incontinence MUSCULOSKELETAL: See HPI. NEUROLOGIC:See HPI. SKIN:Negative for lesions, rash, and itching. HEMATOLOGIC/LYMPHATIC /IMMUNOLOGIC:Negative for prolonged bleeding, bruising easily or swollen nodes. ENDOCRINE: Negative for cold or heat intolerance, polyuria, polydipsia and goiter. The remainder of the ROS was reviewed and is negative. LAB/IMAGING: Reviewed and include: WBC (k/uL) Date Value 06/27/2017 4.33 RBC (m/uL) Date Value 06/27/2017 4.62 Hemoglobin (g/dL) Date Value 06/27/2017 13.6 Hematocrit (%) Date Value 06/27/2017 43.6 MCV (fL) Date Value 06/27/2017 94.4 MCH (pG) Date Value 06/27/2017 29.4 MCHC (g/dL) Date Value 06/27/2017 31.2 RDW-CV (%) Date Value 06/27/2017 14.0 Platelet Count (k/uL) William (more content not included)... Normal [facility] Comprehensive metabolic 2000 panelon 12-04-2024 Albumin [Mass/Vol] 4.8 g/dL Normal 3.9-4.9 [facility] Comment on above: Order Comment: Speci men Type: BLOOD SPECIMENOrdering Facility: [facility] Address: [address] [place] [address] Performed By: #### 2 4331-1 ####[facility]ORATORYCLIA [id number] [place] [address] [place] [facility] [id number] [place] [address] [place]#### 91253-5 ####[facility] MILLWNCLIA [id number] [place] [address] [place] ALP [Catalytic activity/Vol] 87 U/L Normal 34-123 [facility] Comment on above: Order Comment: Speci men Type: BLOOD SPECIMENOrdering Facility: [facility] Address: [address] [place] [address] Performed By: #### 2 4331-1 ####[facility]ORATORYCLIA [id number] [address] STATES OF [facility]TE[facility] [place] [id number] [place] [address] [place]#### 58889-9 ####[facility] MILLTOWNCLIA [id number] [place] [address] [place] ALT [Catalytic activity/Vol] 22 U/L Normal 7-38 [facility] Comment on above: Order Comment: Speci men Type: BLOOD SPECIMENOrdering Facility: [facility] Address: [address] [place], [place] [address] Performed By: #### 2 4331-1 ####[facility]ORATORYCLIA [id number] [place] [address] [place] [facility] DAVONTE MILLWNCLIA [id number] [place] [address] [place]#### 34255-5 ####[facility] MILLTOWNCLIA [id number] [place] [address] [place] Anion gap [Moles/Vol] 13 mmol/L Normal 8-15 [facility] Comment on above: Order Comment: Speci men Type: BLOOD SPECIMENOrdering Facility: [facility] Address: [address] [place] [address] Performed By: #### 2 4331-1 ####[facility]ORATORYCLIA [id number] [place], [place] [id number] [place] [address] [place] [facility]OSPITALLIA [id number] [place] [address] [place]#### 47697-3 ####[facility]ENTERLIA [id number] [place] [address] [place] AST [Catalytic activity/Vol] 22 U/L Normal 13-35 [facility] Comment on above: Order Comment: Speci men Type: BLOOD SPECIMENOrdering Facility: [facility] Address: [address] [place] [address] Performed By: #### 2 4331-1 ####[facility]ORATORYCLIA [id number] [place], [place] [address] [place] [address] [place] [facility]ITALL[facility] [id number] [place] [address] [place]#### 37885-1 ####[facility] EMERGENCYWNCLIA [id number] [place] [address] [place] Bilirubin [Mass/Vol] 0.4 mg/dL Normal 0.2-1.3 [facility] Comment on above: Order Comment: Speci men Type: BLOOD SPECIMENOrdering Facility: [facility] Address: [address] [place], [place] [address] Performed By: #### 2 4331-1 ####[facility]ORATORYCLIA [id number] [place] [address] [place] [facility] DAVONTE MILLTOWNCLIA [id number] [place] [address] [place]#### 56939-9 ####[facility] MILLTOWNCLIA [id number] [place] [address] [place] Calcium [Mass/Vol] 10.3 mg/dL High 8.5-10.2 [facility] Comment on above: Order Comment: Speci men Type: BLOOD SPECIMENOrdering Facility: [facility] Address: [address] [place] [address] Performed By: #### 2 4331-1 ####[facility] LABORATORYCLIA [id number] [place] [address] [place] [facility]PITALWNCLIA [id number] [place] [address] [place]#### 67707-8 ####[facility] MILLTOWNCLIA [id number] [place] [address] [place] Chloride [Moles/Vol] 104 mmol/L Normal 98-107 [facility] Comment on above: Order Comment: Speci men Type: BLOOD SPECIMENOrdering Facility: [facility] Address: [address] [place] [address] Performed By: #### 2 4331-1 ####[facility] LABORATORYCLIA [id number] [place] [address] [place] [facility] DAVONTE MILLTOWNCLIA [id number] [place] [address] [place]#### 18156-8 ####[facility] MILLTOWNCLIA [id number] [place] [address] [place] CO2 [Moles/Vol] 22 mmol/L Normal 22-30 [facility] Comment on above: Order Comment: Speci men Type: BLOOD SPECIMENOrdering Facility: [facility] Address: [address] [place] [address] Performed By: #### 2 4331-1 ####[facility] LABORATORYCLIA [id number] [address] [id number] [place] [address] [place]#### 69723-1 ####[facility] [id number] [place] [address] [place] Creatinine [Mass/Vol] 0.75 mg/dL Normal 0.58-0.96 [facility] Comment on above: Order Comment: Speci men Type: BLOOD SPECIMENOrdering Facility: [facility] Address: [address] [place] [address] Performed By: #### 2 4331-1 ####[facility] LABORATORYCLIA [id number] [address] [id number] [address] OF [place]#### 97791-6 ####[facility] [id number] [address] Creatinine and Glomerular filtration rate.predicted panel (S/P/Bld) 82 mL/min/1.73m??? Normal >=60 [facility] Comment on above: Order Comment: Speci men Type: BLOOD SPECIMENOrdering Facility: [facility] Address: [address] [place], [place] [id number] Result Comment: Yeny mated Glomerular Filtration Rate (eGFR) is calculated using the 2020 CKD-EPI creatinine equation. This equation utilizes serum creatinine, sex, and age as parameters. The creatinine assay has traceable calibration to isotope dilution-mass spectrometry. Refer to KDIGO guidelines for clinical interpretation. In patients with unstable renal function, e.g. those with acute kidney injury, the eGFR may not accurately reflect actual GFR. Performed By: #### 2 4331-1 ####[facility] LABORATORYCLIA [id number] [address]WOKLIA [id number] [place] [address] [place]#### 12981-7 ####[facility]ENTER[facility] [id number] [place] [address] [place] Glucose [Mass/Vol] 144 mg/dL High 74-99 [facility] Comment on above: Order Comment: Speci men Type: BLOOD SPECIMENOrdering Facility: [facility] Address: [address] [place] [address] [place] [address] Result Comment: The [place] Diabetes Association (ADA) provides guidance for cutoff values for fasting glucose and random glucose. The ADA defines fasting as no caloric intake for at least 8 hours. Fasting plasma glucose results between 100 to 125 mg/dL indicate increased risk for diabetes (prediabetes). Fasting plasma glucose results greater than or equal to 126 mg/dL meet the criteria for diagnosis of diabetes. In the absence of unequivocal hyperglycemia, results should be confirmed by repeat testing. In a patient with classic symptoms of hyperglycemia or hyperglycemic crisis, random plasma glucose results greater than or equal to 200 mg/dL meet the criteria for diagnosis of diabetes. Reference: Standards of Medical Care in Diabetes 2016, [place] Diabetes Association. Diabetes Care. 2016.39(Suppl 1). Performed By: #### 2 4331-1 ####[facility] LABORATORYCLIA [id number] [address] [id number] [place] [address] [place]#### 43675-2 ####[facility] [id number] [place] [address] [place] Potassium [Moles/Vol] 3.9 mmol/L Normal 3.7-5.1 [facility] Comment on above: Order Comment: Speci men Type: BLOOD SPECIMENOrdering Facility: [facility] Address: [facility] [place] [address] Performed By: #### 2 4331-1 ####[facility]ORATORYCLIA [id number] [place] [address] [place] [facility] DAVONTE MILLWNCLIA [id number] [place] [address] [place]#### 55125-5 ####[facility] MILLTOWNCLIA [id number] [place] [address] [place] Protein [Mass/Vol] 7.8 g/dL Normal 6.3-8.0 [facility] Comment on above: Order Comment: Speci men Type: BLOOD SPECIMENOrdering Facility: [facility] Address: [address] [place], [place] [address] [address] Performed By: #### 2 4331-1 ####[facility] LABORATORYCLIA [id number] [place] [address] [place] [facility]ITALWOKLIA [id number] [place] [address] [place]#### 38997-2 ####[facility] MILLTOWNCLIA [id number] [place] [address] [place] Sodium [Moles/Vol] 139 mmol/L Normal 136-144 [facility] Comment on above: Order Comment: Speci men Type: BLOOD SPECIMENOrdering Facility: [facility] Address: [facility] [place] [address] Performed By: #### 2 4331-1 ####[facility] LABORATORYCLIA [id number] [place] [address] [place] [facility] DAVONTE MILLTOWNCLIA [id number] [place] [address] [place]#### 21977-6 ####[facility] [id number] [place] [address] [place] Urea nitrogen [Mass/Vol] 29 mg/dL High 7-21 [facility] Comment on above: Order Comment: Desean rea Type: BLOOD SPECIMENOrdering Facility: [facility] Address: [address] [place] [address] Performed By: #### 2 4331-1 ####[facility] LABORATORYCLIA [id number] [address] STATES [facility] [id number] [address] OF [place]#### 51822-0 ####[facility] [id number] [place] [address] [place] HbA1c (Bld)on 12-04-2024 Average glucose Estimated from glycated hemoglobin (Bld) [Mass/Vol] 148 mg/dL Normal [facility] Comment on above: Order Comment: Desean rea Type: BLOOD SPECIMENOrdering Facility: [facility] Address: [address] [place] [address] Result Comment: eAG: (Estimated average glucose) is a calculated value from HgbA1c and is sales account representative of the average blood glucose level in the last 2-3 month period. Performed By: #### 5 5454-3 ####[facility] LABCLIA [id number] [place] [address] [place] HbA1c (Bld) [Mass fraction] 6.8 % High 4.3-5.6 [facility] Comment on above: Order Comment: Desean rea Type: BLOOD SPECIMENOrdering Facility: [facility] Address: [address] [place] [address] Result Comment: Amer ican Diabetes Association guidelines indicate that patients with HgbA1c in the range 5.7-6.4% are at increased risk for development of diabetes, and intervention by lifestyle modification may be beneficial. HgbA1c greater or equal to 6.5% is considered diagnostic of diabetes. Performed By: #### 5 5454-3 ####[facility] LABCLIA [id number] [facility] [id number] [place] [address] [place] Lipid 1996 panelon 5 Cholesterol [Mass/Vol] 236 mg/dL High <200 [facility] Comment on above: Order Comment: Speci men Type: BLOOD SPECIMENOrdering Facility: [facility] Address: [address] [place] [address] Result Comment: <200 mg/dL, Desirable 200-239 mg/dL, Borderline high >239 mg/dL, High Performed By: #### 2 4331-1 ####[facility] LABORATORYCLIA [id number] [address] [id number] [place] [address] [place]#### 04460-1 ####[facility]ENTERLIA [id number] [place] [address] [place] Cholesterol in HDL [Mass/Vol] 79 mg/dL Normal >39 [facility] Comment on above: Order Comment: Speci men Type: BLOOD SPECIMENOrdering Facility: [facility] Address: [address] [place] [address] Result Comment: 40-5 9 mg/dL, Acceptable >59 mg/dL, High: Negative risk factor for coronary heart disease <40 mg/dL, Low: Positive risk factor for coronary heart disease Performed By: #### 2 4331-1 ####[facility] LABORATORYCLIA [id number] [address] ELIZABETHS MEDICAL CENTERA [id number] [place] [address] [place]#### 66607-6 ####[facility]ENTERLIA [id number] [address] Cholesterol in LDL [Mass/Vol] 139 mg/dL High <100 [facility] Comment on above: Order Comment: Speci men Type: BLOOD SPECIMENOrdering Facility: [facility] Address: [address] [place] [address] Result Comment: <100 mg/dL, Optimal 100-129 mg/dL, Near optimal/above optimal 130-159 mg/dL, Borderline high 160-189 mg/dL, High >189 mg/dL, Very high Secondary prevention optimal LDL Cholesterol levels are recommended to be < 70 mg/dL Performed By: #### 2 4331-1 ####[facility] LABORATORYCLIA [id number] [id number] [place] [address]#### 43754-5 ####[facility] [id number] [address] Cholesterol in LDL/Cholesterol in HDL [Mass ratio] 1.76 {ratio} Normal <2.54 [facility] Comment on above: Order Comment: Speci men Type: BLOOD SPECIMENOrdering Facility: [facility] Address: [address] [place] [address] Result Comment: Natalie kaur: 1. National Cholesterol Education Program ATP III Guideline At-A-Glance Quick Desk Reference: National Heart, Lung, and Blood [place]. National Institutes of Health. 2001: NIH Publication No. 01-3305. 2. An International Atherosclerosis Society position paper: global recommendations for the management of dyslipidemia: executive summary, Atherosclerosis. 2014: 232(2):410-413. Performed By: #### 2 4331-1 ####[facility] LABORATORYCLIA [id number] [address] [id number] [address]#### 41084-6 ####[facility] [id number] [place] [address] [place] Cholesterol in VLDL [Mass/Vol] 18 mg/dL Normal <30 [facility] Comment on above: Order Comment: Speci men Type: BLOOD SPECIMENOrdering Facility: [facility] Address: [address] [place] [address] Performed By: #### 2 4331-1 ####[facility] LABORATORYCLIA [id number] [address] [id number] [place] [address] [place]#### 64061-5 ####[facility] [id number] [place] [address] [place] Cholesterol non HDL [Mass/Vol] 157 mg/dL High <130 [facility] Comment on above: Order Comment: Speci men Type: BLOOD SPECIMENOrdering Facility: [facility] Address: [address] [place] [address] Result Comment: <130 mg/dL, Optimal 130-159 mg/dL, Near optimal/above optimal 160-189 mg/dL, Borderline high 190-219 mg/dL, High >219 mg/dL, Very high Secondary prevention optimal non HDL Cholesterol levels are recommended to be <100 mg/dL Performed By: #### 2 4331-1 ####[facility] LABORATORYCLIA [id number] [place], [place] [address] [place] [address] STATES OF [facility] [id number] [place] [address] [place]#### 80407-5 ####[facility] [id number] [place] [address] [place] Cholesterol.total/Chol esterol in HDL [Mass ratio] 2.99 {ratio} Normal <5.10 [facility] Comment on above: Order Comment: Speci men Type: BLOOD SPECIMENOrdering Facility: [facility] Address: [address] [place] [address] Performed By: #### 2 4331-1 ####[facility] LABORATORYCLIA [id number] [place], [place] [address] [place] [address] [id number] [place] [address] [place]#### 54604-1 ####[facility]ENTERL[facility] [id number] [place] [address] [place] FASTING TIME 14 hrs Normal [facility] Comment on above: Order Comment: Speci men Type: BLOOD SPECIMENOrdering Facility: [facility] Address: [address] [place] [address] Performed By: #### 2 4331-1 ####[facility] LABORATORYCLIA [id number] [address] [id number] [place] [address] [place]#### 47690-4 ####[facility] [id number] [place] [address] [place] Triglyceride [Mass/Vol] 90 mg/dL Normal <150 [facility] Comment on above: Order Comment: Speci men Type: BLOOD SPECIMENOrdering Facility: [facility] Address: [address] [place] [address] Result Comment: <150 mg/dL, Normal 150-199 mg/dL, Borderline high 200-499 mg/dL, High >499 mg/dL, Very high Performed By: #### 2 4331-1 ####[facility]ORATORYCLIA [id number] [address] [id number] [place] [address] [place]#### 27695-7 ####[facility] DAVONTE ARCETOWNCLIA [id number] [place] [id number] [place] XR HIP 3V PELV+ AP/LAT LTon 12-04-2024 XR HIP 3V PELV+ AP/LAT LT * * *Final Report* * * DATE OF EXAM: Dec 04 2024 9:35AM WOX [id number] - XR HIP 3V PELV+ AP/LAT LT / PROCEDURE REASON: Pain in left hip * * * * Physician Interpretation * * * * PROCEDURE: Pelvis and left hip INDICATION: Pain in left hip .Left hip pain. Pt fell in July and left hip hurt then, then it was feeling better but began hurting again after pt recently shoveled snow. TECHNIQUE: XR HIP 3V PELV+ AP/LAT LT COMPARISON: None FINDINGS: No acute fracture or dislocation. Spurring from the greater trochanters bilaterally. Hip joint spaces are maintained. Degenerative change in the lower lumbar spine and symphysis pubis. Sacroiliac joints are unremarkable. IMPRESSION: No acute abnormality File Keeper: PETER Transcribe Date/Time: Dec 08 2024 9:06A Dictated by : TRACEY STONE MD This examination was interpreted and the report reviewed and electronically signed by: TARCEY STONE MD on Dec 08 2024 9:10AM EST [id number] N Normal [facility] Rossi 12-03-2024 CNPN Telephone (GALINDO) AIMEE CANCINO ([id number]) 1945 F Date Time Provider Department 12/03/24 NEUROLOGY PROVIDER GALINDO During your visit today, we recorded the following information about you: Josue Rosa LPN 12/03/2024 8:58 AM Signed Pt thinks she has had a stroke recently, speech changes, straining for words for 6 months (March), abnormal gait, tightness in her chest. Has not seen previous for any of these symptoms. Advised patient next time she believes she is having a stroke please visit ER immediately, patient verbalized understanding. Insomnia was diagnosis years ago, only taking OTC medications for this. Family Hx of ALS, mother had alzheimer. Not taking any medications prescribed to her due to personal decision to go homeopathic. No documentation to request for this visit. Josue Rosa LPN December 03, 2024 8:58 AM Allergies As of Date: 12/03/2024 (No Known Allergies) Date Reviewed: 09/06/2021 Reviewed by: Ritu Sweet LPN - Fully Assessed Reason for Visit: Appointment [186] Cmt: 12/04/24 appointment- no documentation Prescriptions as of 12/03/2024 - atorvastatin (LIPITOR) 20 mg tablet Take 1 tablet by mouth daily at bedtime. For cholesterol. - metoprolol succinate ER (TOPROL XL) 25 mg 24 hr tablet Take 1 tablet by mouth once daily. - sertraline (ZOLOFT) 50 mg tablet Take 1 tablet by mouth once daily. - metFORMIN ER (GLUCOPHAGE XR) 500 mg 24 hr tablet Take 1 tablet by mouth daily with breakfast. - lisinopril (ZESTRIL, PRINIVIL) 20 mg tablet Take 0.5 tablets by mouth once daily. - CPAP Initiate CPAP @ 7 cm of water with humidification. Mask (per patient preference) optional chin strap (if indicated) , filters, tubing, humidifier and lifetime supplies. - blood sugar diagnostic (ACCU-CHEK ALEJANDRA) test strip Test blood sugar(s) 3 times daily. Dx: Type 2 DM - Controlled E11.9 Insulin: Yes Accucheck smartview test strips Problem List As Of Date 12/03/2024 Noted Resolved SUMMARY [V999.95] 09/05/2013 Orbital cellulitis and preseptal cellulitis [H0*09/05/2013 DVT prophylaxis [PGN3718] 09/05/2013 HTN (hypertension) [I10] 09/05/2013 Diabetes mellitus (HCC) [E11.9] 09/05/2013 Colon cancer screening [Z12.11] 07/05/2017 Anxiety [F41.9] DDD (degenerative disc disease), cervical [M50.*02/05/2019 FINA (obstructive sleep apnea) [G47.33] Obesity [E66.9] Encounter Status:Closed by JOSUE ROSA on 12/03/24 [facility] Pulmonary Visit Reporton Pulmonary Visit Report [facility] [place] [address] [place] [address] OFFICE VISIT Date of Service: 07/27/24 MR#: [id number] Acct: [id number] Name: AIMEE CANCINO Rep #: [id number] : 1945 Provider: SANIA Townsend Age/Sex: 78/F Location: [facility] Status: Signed Assessment and Plan Assessment and Plan (1) FINA on CPAP: Status: Chronic Plan: She is using and benefiting from Pap therapy. No indication for retitration study. Referring the patient for evaluation by neurologist, she will then follow-up with them for her sleep apnea as well. She has been instructed to contact the office to set up an office visit if she is not able to establish with that practice or if for some reason she does not choose to follow-up with them. She is agreeable with this plan. (2) Obesity: Status: Chronic Qualifiers: Body mass index: BMI 32.0-32.9 Obesity classification: adult class 1 (BMI 30 - 34.9) Obesity type: due to excess calories Serious obesity comorbidity presence: with serious comorbidity Qualified Code(s): E66.09 - Other obesity due to excess calories; Z68.32 - Body mass index (BMI) 32.0-32.9, adult Plan: Complicates exam, plan, care and prognosis. Continue to encourage healthy weight loss. (3) Insomnia: Status: Chronic Qualifiers: Insomnia type: unspecified Qualified Code(s): G47.00 - Insomnia, unspecified Plan: Referring the patient to a neurologist for evaluation and treatment of her insomnia, and they will assume management of her sleep apnea. Orders: Referrals Neurology G47.00 - Insomnia, unspecified HPI 1 Y FU Chief Complaint: Sleep apnea HPI Comments Details: This patient presents to the office today for follow-up of her obstructive sleep apnea. She is ambulatory and currently on room air. She has not been seen in the ED or urgent care for any respiratory illness since her last office visit. She has not required any antibiotics or prednisone for any breathing problems. She denies any difficulty with shortness of breath. She denies any cough, sputum production or hemoptysis. She has not had any wheezing, chest tightness, chest pain or palpitations. She also denies any fever, chills or body aches. The patient continues to suffer from insomnia. This started when she was prescribed PAP therapy. She reports excellent compliance with her PAP device, however is not always feeling rested when she wakes up. She believes this is related to the fact that she has difficulty falling asleep. She states "I read a lot of books". She denies requiring naps. She is nodding off to sleep unintentionally. She is not having mask leaks or dry mouth. Compliance report for the past 30 days shows 100% compliance with average use of 7 hours and 38 minutes per night. Current setting is CPAP 7 cmH2O with a residual AHI of 1 event per hour. Leaks do not appear to be problematic. Intake Vital Signs 07/22/23 07:35 07/27/24 07:33 Height 5 ft 3 in 5 ft 3 in Weight: 197 lb BMI 34.9 BP 147/79 H Blood Pressure Location Lt brachial Position Sitting Respiration 20 H Pulse 78 Pulse Source Monitor Temp 97.0 F L Temperature Source Temporal Artery Pulse Oximetry (%) 98 Oxygen Delivery Method room air Intake Visit Reasons: 1 Y FU Chief Complaint: Daytime hypersomnia Engine Setter Required: No DME Vendor: [employer] Accompanied by: Self Allergies No Known Allergies Allergy (Verified 07/27/24 08:15) Medications ???Medication ???Instructions ???Recorded ???Confirmed ???Type melatonin 3 mg capsule 3 mg PO HS PRN 03/03/20 07/27/24 History antiarthritic combination no.2 900 mg PO 04/25/20 07/27/24 History mg tablet (glucosamine-chondroi tin) Have you fallen in the past year?: No PFSH Medical History Essential hypertension Hyperlipidemia FINA on CPAP Vertigo Snoring Diabetes mellitus, type II Carotid artery disease Obesity DDD (degenerative disc disease), cervical Anxiety Surgical History (Reviewed 10/07/24 @ 08:22 by Gloria Townsend DIRECTOR OF WEB MARKETING, DIRECTOR OF WEB MARKETING-C) Status post nasal endoscopy with nasal polypectomy (09/07/13) History of tonsillectomy History of colonoscopy (07/16/17) History of nasal surgery (09/07/13) Family History (Reviewed 07/27/24 @ 08:22 by Gloria Townsend DIRECTOR OF WEB MARKETING, DIRECTOR OF WEB MARKETING-C) Mother Diabetes Sister Diabetes Sister Diabetes Social History (Reviewed 07/27/24 @ 08:22 by Gloria Townsend DIRECTOR OF WEB MARKETING, DIRECTOR OF WEB MARKETING-C) Smoking Status: Never smoker alcohol intake: never substance use type: does not use caffeine: Yes Type: coffee Number of servings: 4 and tea Number of servings: 2 Review of Systems Resp Respiratory: Yes as per HPI Exam Const Constitutional: Positive conversant, cooperative, in no acute respirato (more content not included)... Normal [facility] ALBUMIN/CREAT RATIO RND URon 04-20-2023 Albumin DL <= 20 mg/L (U) [Mass/Vol] [facility] Albumin/Creatinine (U) [Mass ratio] <30 mg/g [facility] Creatinine (U) [Mass/Vol] 138.2 mg/dL 20.0 - 300.0 mg/dL [facility] ROSSY SCREENINGon 10-25-2022 [facility] Vital Signs Date Time Vital Sign Value Performing Clinician Talib armstrong 04-01-2025 09:33-0400 Body mass index (BMI) [Ratio] 36.56 kg/m2 Rut Gama APRN.TRACTOR OPERATOR Work Phone: [facility] 04-01-2025 09:33-0400 Body weight 93.62 kg Rut Gama APRN.TRACTOR OPERATOR Work Phone: [facility] 04-01-2025 09:33-0400 Diastolic blood pressure 60 mm[Hg] Rut Gama APRN.TRACTOR OPERATOR Work Phone: [facility] 04-01-2025 09:33-0400 Heart rate 61 /min Rut Gama APRN.TRACTOR OPERATOR Work Phone: [facility] 04-01-2025 09:33-0400 Respiratory rate 16 /min Rut Gama APRN.TRACTOR OPERATOR Work Phone: [facility] 04-01-2025 09:33-0400 SaO2% (BldA) [Mass fraction] 97 % Rut Natan PELLETIZER TENDER.TRACTOR OPERATOR Work Phone: [facility] 04-01-2025 09:33-0400 Systolic blood pressure 92 mm[Hg] Rut Natan PELLETIZER TENDER.TRACTOR OPERATOR Work Phone: [facility] 01-29-2025 08:00-0400 Body mass index (BMI) [Ratio] 34.52 kg/m2 Rut Natan PELLETIZER TENDER.TRACTOR OPERATOR Work Phone: [facility] 01-29-2025 08:00-0400 Body weight 88.41 kg Rut Natan PELLETIZER TENDER.TRACTOR OPERATOR Work Phone: [facility] 01-29-2025 08:00-0400 Diastolic blood pressure 82 mm[Hg] Rut Natan PELLETIZER TENDER.TRACTOR OPERATOR Work Phone: [facility] 01-29-2025 08:00-0400 Heart rate 64 /min Rut Natan PELLETIZER TENDER.TRACTOR OPERATOR Work Phone: [facility] 01-29-2025 08:00-0400 Respiratory rate 18 /min Rut Natan PELLETIZER TENDER.TRACTOR OPERATOR Work Phone: [facility] 01-29-2025 08:00-0400 SaO2% (BldA) [Mass fraction] 97 % Rut Natan PELLETIZER TENDER.TRACTOR OPERATOR Work Phone: [facility] 01-29-2025 08:00-0400 Systolic blood pressure 138 mm[Hg] Rut Natan PELLETIZER TENDER.TRACTOR OPERATOR Work Phone: [facility] 01-13-2025 08:19-0400 Body mass index (BMI) [Ratio] 34.47 kg/m2 Carlene TRINIDAD-C Work Phone: [facility] 01-13-2025 08:19-0400 Body weight 88.27 kg Carlene TRINIDAD-Polina Work Phone: [facility] 01-13-2025 08:19-0400 Diastolic blood pressure 74 mm[Hg] Carlene Pryorer PA-C Work Phone: [facility] 01-13-2025 08:19-0400 Heart rate 64 /min Carlene Pryorer PA-C Work Phone: [facility] 01-13-2025 08:19-0400 Respiratory rate 18 /min Carlene Pryorer PA-C Work Phone: [facility] 01-13-2025 08:19-0400 SaO2% (BldA) [Mass fraction] 99 % Carlene Pryorer PA-C Work Phone: [facility] 01-13-2025 08:19-0400 Systolic blood pressure 112 mm[Hg] Carlene Pryorer PA-C Work Phone: [facility] 12-04-2024 08:08-0500 Body mass index (BMI) [Ratio] 34.44 kg/m2 Chauncey Jang Jr., MD Work Phone: [facility] 12-04-2024 08:08-0500 Body weight 88.18 kg Chauncey Jang Jr., MD Work Phone: [facility] 12-04-2024 08:08-0500 Diastolic blood pressure 90 mm[Hg] Chauncey Jang Jr., MD Work Phone: [facility] 12-04-2024 08:08-0500 Heart rate 86 /min Chauncey Jang Jr., MD Work Phone: [facility] 12-04-2024 08:08-0500 Respiratory rate 18 /min Chauncey Jang Jr., MD Work Phone: [facility] 12-04-2024 08:08-0500 SaO2% (BldA) [Mass fraction] 98 % Chauncey Jang Jr., MD Work Phone: [facility] 12-04-2024 08:08-0500 Systolic blood pressure 172 mm[Hg] Chauncey Jang Jr., MD Work Phone: [facility] Encounters Encounter Date Encounter Type Care Provider Facility Start: 04-01-2025 End: 04-01-2025 Telephone encounter Rut Ramosne PELLETIZER TENDER.TRACTOR OPERATOR Work Phone: Neurology Start: 04-01-2025 End: 04-01-2025 Patient encounter procedure Rutjonas Ramosne PELLETIZER TENDER.TRACTOR OPERATOR Work Phone: Neurology Comment on above: Insomnia, unspecifie d type (Primary Dx); FINA on CPAP Start: 04-01-2025 End: 04-01-2025 [facility] Start: 02-22-[address] [facility] Facility:[facility] Start: 02-22-2025 End: 02-22-2025 Subsequent hospital visit by physician Bone Density [facility] Work Phone: Radiology Start: 02-03-2025 ambulatory CARLENE Dougherty y:[facility] Start: 02-03-2025 Non-patient / Non-visit Dr. Subhash henry MD -[facility]- Start: 02-03-2025 End: 02-03-2025 ambulatory CARLENE TRINIDAD Work Phone: [facility] Work Phone: Start: 02-03-2025 End: 02-03-2025 Patient encounter procedure CARLENE TRINIDAD -Pulmonary Services/Neurology Work Phone: Start: 02-03-2025 End: 02-03-2025 [facility] Facility:[facility] Start: 01-29-2025 End: 01-29-2025 Patient encounter procedure Rut Natan PELLETIZER TENDER.TRACTOR OPERATOR Work Phone: Neurology Comment on above: Insomnia, unspecifie d type (Primary Dx); FINA on CPAP Start: 01-29-2025 End: 01-29-2025 ambulatory RUT GAMA Facility:[facility] Start: 01-19-2025 End: 03-21-2025 Follow-up encounter Carlene HERNANDEZC Work Phone: Neurology Start: 01-13-2025 End: 01-13-2025 ambulatory CARLENE VASQUEZ Facility:[facility] Start: 01-13-2025 End: 01-13-2025 Patient encounter procedure Carlene Vasquez PA-C Work Phone: Neurology Comment on above: Coordination abnorma l (Primary Dx); Balance problem; Recurrent falls; Neuropathy; Speech disturbance, unspecified type Start: 01-13-2025 End: 01-13-2025 ambulatory CARLENE SHANNAN Facility:[facility] Start: 12-14-2024 End: 12-14-2024 ambulatory CHAUNCEY JANG JR Facility:[facility] Start: 12-14-2024 End: 12-14-2024 Subsequent hospital visit by physician Mri Radio [facility] (I-Stat/1.5t) Work Phone: Radiology Comment on above: Speech disturbance, unspecified type [R47.9] Start: 12-04-2024 End: 12-04-2024 Follow-up encounter Chauncey Jang MD Work Phone: Neurology Start: 12-04-2024 End: 12-04-2024 Subsequent hospital visit by physician Xr [facility] Work Phone: Radiology Comment on above: Pain in left hip [M2 5.552] Start: 12-04-2024 End: 12-04-2024 ambulatory CHAUNCEY JANG JR Facility:[facility] Start: 12-04-2024 End: 12-04-2024 Patient encounter procedure Chauncey Jang MD Work Phone: Neurology Comment on above: Speech disturbance, unspecified type (Primary Dx); Coordination abnormal; Balance problem; Recurrent falls; History of diabetes mellitus; History of hyperlipidemia; Pain in left hip; Insomnia, unspecified type; Obstructive sleep apnea (adult) (pediatric) Start: 12-03-2024 End: 12-03-2024 Telephone encounter Neurology Provider Neurology Comment on above: Appointment (12/04/24 appointment- no documentation) Start: 12-01-2024 End: 12-01-2024 ambulatory Nasra EnglishPanaya Start: 12-01-2024 End: 12-01-2024 Patient encounter procedure Nasra [employer] [facility] [place] Comment on above: Population Health Na vigation Outreach (Kati bullbeleighton arauz) Start: 09-14-2024 End: 09-14-2024 ambulatory Nasra Izquierdo MA [facility] [place] Start: 09-14-2024 End: 09-14-2024 Patient encounter procedure Nasra Izquierdo MA [facility] [place] Comment on above: Population Health Na vigation Outreach ([employer] workbench [place]) Start: 07-27-2024 End: 07-27-2024 ambulatory Gloria Townsend NP Facility:[facility] Start: 04-21-2024 ambulatory Nasra Izquierdo [facility] [place] Start: 04-21-2024 Patient encounter procedure Nasra Izquierdo MA [facility] [place] Comment on above: Population Health Na vigation Outreach ([employer] workbench [place]) Start: 04-22-2023 Telephone encounter Alexx Zamora MD Work Phone: [facility] Comment on above: Results Start: 04-17-2023 ambulatory Geraldine Joel (Ps s) Duhaime [facility] [place] Comment on above: Population Health Na vigation Outreach ([employer] Low HCC) Start: 04-02-2023 ambulatory Jose F Zamora MD Work Phone: Internal Medicine [facility] [place] Start: 10-25-2022 End: 10-25-2022 Subsequent hospital visit by physician Screen Mammo [facility] Mammogram Comment on above: Encounter for screen ing mammogram for malignant neoplasm of breast [Z12.31] Start: 10-10-2022 ambulatory Cata Garrettwerp [facility] [place] Comment on above: Population Health Na vigation Outreach (Hum[employer] Medicare/) Start: 09-06-2022 ambulatory Cata Abram [place] [facility] [place] Comment on above: Population Health Na vigation Outreach (Hum[employer] Medicare/) Start: 07-12-2022 ambulatory Yuli Gentile ROSALBA [facility] [place] Comment on above: Population Health Na vigation Outreach ([employer] Care Gaps /) Start: 05-28-2022 ambulatory Cata Penap [facility] [place] Comment on above: Population Health Na vigation Outreach ([employer] Medicare ) Start: 02-27-2022 Veda Ascencio APRN.CNP Work Phone: [facility] Comment on above: Refill Request Procedures Date Procedure Procedure Detail Performing Clinician Start: 12-14-2024 Mra head w/o contrst material Chauncey Jang MD Work Phone: Start: 10-25-2022 Screening mammograph y bi 2-view breast inc cad Jose F Zamora MD Work Phone: Start: 10-06-2021 Mammography Wen oneill PELLETIZER TENDER.TRACTOR OPERATOR Work Phone: Start: 08-26-2021 Adult depression screening assessment Wen Ascencio PELLETIZER TENDER.EUGENIE Work Phone: Start: 07-16-2017 Colonoscopy Wen oneill PELLETIZER TENDER.TRACTOR OPERATOR Work Phone: Plan of Treatment Date Care Activity Detail Author Start: 07-04-2031 Urine microalbumin profile DTaP,Tdap,Td Vaccine (3 - Td or Tdap) [facility] Start: 07-09-2028 Urine microalbumin profile DTAP,TDAP,TD (2 - Td or Tdap) [facility] Start: 01-13-2026 BP Controlled (<130/80) BP Controlle d (<130/80) [facility] Start: 12-04-2025 Hepatitis B surface antibody level LDL Cholesterol [facility] Start: 06-21-2025 Influenza vaccination Influenz a Vaccine (Season Ended) [facility] Start: 06-03-2025 Hemoglobin A1c measurement HbA1C [facility] Start: 05-21-2025 End: 05-21-2025 Patient encounter procedure 05/21/2025 9:20 AM EDT Office Visit Neurology [address] [place] [id number] Chauncey Jang Jr., MD [address] [place] [address] 3 month follow up Neurology Comment on above: 3 month follow up Start: 04-01-2025 End: 04-01-2025 Patient encounter procedure Neurology Comment on above: 2 month follow up Start: 02-22-2025 End: 02-22-2025 Patient encounter procedure Neurology Comment on above: was recomended to se jay jang. sleep issues and noticed speech isnt clearly understood . struggling to find words ROSSY SCREENING [facility] Start: 01-29-2025 End: 01-29-2025 Patient encounter procedure 01/29/2025 8:00 AM EDT Office Visit Neurology [address] [place] [address] Rut Gama, RANI.TRACTOR OPERATOR [address] [place], [place] [address] No sleep study, no pap. Obstructive sleep apnea (adult) (pediatric) [G47.33]; Insomnia, unspecified type [G47.00] Neurology Comment on above: No sleep study, no p ap. Obstructive sleep apnea (adult) (pediatric) [G47.33]; Insomnia, unspecified type [G47.00] Start: 01-13-2025 End: 04-14-2025 Cobalamin (Vitamin B12) [Mass/volume] in Serum or Plasma [facility] Comment on above: Expected: 01/13/2025 , Expires: 04/14/2025 Start: 01-13-2025 End: 04-14-2025 Methylmalonate [Moles/volume] in Serum or Plasma [facility] Comment on above: Expected: 01/13/2025 , Expires: 04/14/2025 Start: 01-13-2025 End: 04-14-2025 PROT ELECT SERUM WITH BELEM AND INTERP [facility] Comment on above: Expected: 01/13/2025 , Expires: 04/14/2025 Start: 01-13-2025 End: 04-14-2025 Pyridoxine [Mass/volume] in Serum or Plasma [facility] Comment on above: Expected: 01/13/2025 , Expires: 04/14/2025 Start: 01-07-2025 End: 01-07-2025 Patient encounter procedure 01/07/2025 11:00 AM EDT Office Visit Neurology [address] [place] [address] Rut Gama, PELLETIZER TENDER.TRACTOR OPERATOR [address] [place] [address] Obstructive sleep apnea (adult) (pediatric) [G47.33]; Insomnia, unspecified type [G47.00] Neurology Comment on above: Obstructive sleep ap geremias (adult) (pediatric) [G47.33]; Insomnia, unspecified type [G47.00] Start: 12-14-2024 End: 12-14-2024 Patient encounter procedure 12/14/2024 9:00 AM EST Appointment Radiology [address] [place], [place] [id number] Speech disturbance, unspecified type [R47.9]; Coordination abnormal [R27.8]; Recurrent falls [R29.6]; Balance problem [R26.89] Radiology Comment on above: Speech disturbance, unspecified type [R47.9]; Coordination abnormal [R27.8]; Recurrent falls [R29.6]; Balance problem [R26.89] Start: 12-04-2024 End: 03-05-2025 Comprehensive metabolic 2000 panel - Serum or Plasma [facility] Comment on above: Expected: 12/04/2024 , Expires: 03/05/2025 Start: 12-04-2024 End: 03-05-2025 Hemoglobin A1c in Blood [facility] Comment on above: Expected: 12/04/2024 , Expires: 03/05/2025 Start: 12-04-2024 End: 03-05-2025 Lipid 1996 panel - Serum or Plasma [facility] Comment on above: Expected: 12/04/2024 , Expires: 03/05/2025 Start: 12-04-2024 End: 12-04-2024 Patient encounter procedure 12/04/2024 8:00 AM EST Office Visit Neurology [address] [place], [place] [id number] Chauncey Jang Jr., MD [address] [place], [place] [id number] see TE 12/03/24 Neurology Comment on above: see TE 12/03/24 Start: 10-21-2024 Advance Directive Discussion Advance Directive Discussion [facility] Start: 10-21-2024 Medicare Advantage Annual Wellness Visit Medicare Advantage Annual Wellness Visit [facility] Start: 06-21-2024 Covid-19 Vaccine ( season) Covid-19 Vaccine ( season) [facility] Start: 06-21-2024 Influenza vaccination Influenza Vacc ine (#1) [facility] Start: 04-20-2024 Hepatitis B screening URINE AL BUMIN:CREATININE RATIO [facility] Start: 04-20-2024 Hepatitis B surface antibody level LDL CHOLESTEROL [facility] Start: 10-21-2023 Advance Directive Discussion Advance Directive Discussion [facility] Start: 10-21-2023 Behavioral Health Screening Behavioral Health Screening [facility] Start: 10-21-2023 Hemoglobin A1c measurement HbA1C [facility] Start: 10-21-2023 Hemoglobin A1c/Hemoglobin.total in Blood HBA1C [facility] Start: 06-21-2023 Covid-19 Vaccine () Covid-19 Vaccine () [facility] Start: 06-21-2023 [facility] Start: 04-06-2023 Glaucoma screening Dilated Retinal E xam [facility] Start: 04-06-2023 Hepatitis C antibody , confirmatory test DILATED RETINAL EXAM [facility] Start: 04-02-2023 End: 06-02-2023 Hemoglobin A1c in Blood HGB A1C Lab Routine Diabetes mellitus (HCC) Expected: 04/02/2023, Expires: 06/02/2023 [facility] Work Phone: Comment on above: Expected: 04/02/2023 , Expires: 06/02/2023 Start: 10-21-2022 ADVANCE DIRECTIVE DISCUSSION ADVANCE DIRECTIVE DISCUSSION [facility] Start: 10-21-2022 DEPRESSION ASSESSMENT DEPRESSION ASS ESSMENT [facility] Start: 10-06-2022 Mammography MAMMOGRAM [facility] Start: 09-07-2022 Hepatitis B screening URINE AL BUMIN:CREATININE RATIO [facility] Start: 09-07-2022 Hepatitis B surface antibody level LDL CHOLESTEROL [facility] Start: 09-06-2022 3 comp foot exam completed DIABETIC FOOT EXAM [facility] Start: 09-06-2022 End: 11-06-2022 ALBUMIN/CREAT RATIO RND UR ALBUMIN/CREAT RATIO RND UR Lab Routine Diabetes mellitus due to underlying condition with hyperosmolarity without coma, without long-term current use of insulin (HCC) Expected: 09/06/2022, Expires: 11/06/2022 [facility] Work Phone: Comment on above: Expected: 09/06/2022 , Expires: 11/06/2022 Start: 09-06-2022 ANNUAL PCP TEAM HOT BRAIDER JESÚS DISEASE VISIT ANNUAL PCP TEAM CHRONIC DISEASE VISIT [facility] Start: 09-06-2022 BP CONTROLLED (<130/80) BP CONTROLLE D (<130/80) [facility] Start: 09-06-2022 End: 11-06-2022 Comprehensive metabolic 2000 panel - Serum or Plasma COMP METABOLIC PANEL Lab Routine Diabetes mellitus due to underlying condition with hyperosmolarity without coma, without long-term current use of insulin (HCC) Expected: 09/06/2022, Expires: 11/06/2022 [facility] Work Phone: Comment on above: Expected: 09/06/2022 , Expires: 11/06/2022 Start: 09-06-2022 Diabetic foot examination Diabetic Foot Exam [facility] Start: 09-06-2022 End: 11-06-2022 Hemoglobin A1c in Blood HGB A1C Lab Routine Diabetes mellitus due to underlying condition with hyperosmolarity without coma, without long-term current use of insulin (HCC) Expected: 09/06/2022, Expires: 11/06/2022 [facility] Work Phone: Comment on above: Expected: 09/06/2022 , Expires: 11/06/2022 Start: 09-06-2022 End: 11-06-2022 LIPID PANEL, NONFASTING LIPID PANEL, NONFASTING Lab Routine Diabetes mellitus due to underlying condition with hyperosmolarity without coma, without long-term current use of insulin (HCC) Expected: 09/06/2022, Expires: 11/06/2022 [facility] Work Phone: Comment on above: Expected: 09/06/2022 , Expires: 11/06/2022 Start: 08-26-2022 Adult depression screening assessment DEPRESSION SCREENING [facility] Start: 2022 RSV Vaccine (1 - 1-d ose 75+ series) RSV Vaccine (1 - 1-dose 75+ series) [facility] Start: 07-16-2022 Colonoscopy COLONOSCOPY [facility] Start: 07-16-2022 COLORECTAL CANCER SCREENING COLORECTAL CANCER SCREENING [facility] Start: 06-21-2022 Influenza vaccination [facility] Start: 04-06-2022 Hepatitis C antibody , confirmatory test DILATED RETINAL EXAM [facility] Start: 03-07-2022 Hemoglobin A1c/Hemoglobin.total in Blood HBA1C [facility] Start: 10-21-2021 ADVANCE DIRECTIVE DISCUSSION ADVANCE DIRECTIVE DISCUSSION [facility] Start: 10-21-2021 DEPRESSION ASSESSMENT DEPRESSION ASS ESSMENT [facility] Start: 07-18-2021 COVID-19 VACCINE (3 - Booster for Pfizer series) COVID-19 VACCINE (3 - Booster for Pfizer series) [facility] Start: 04-12-2021 COVID-19 VACCINE (3 - Booster for Pfizer series) COVID-19 VACCINE (3 - Booster for Pfizer series) [facility] Start: 2007 RSV Vaccine (1 - 1-d ose 60+ series) RSV Vaccine (1 - 1-dose 60+ series) [facility] Start: 1992 COLOGUARD (FIT-DNA) COLOGUARD (FIT-D NA) [facility] Start: [address] COLONOGRAPHY [facility] Start: 1992 FECAL OCCULT BLOOD FECAL OCCULT BLOO D [facility] Start: 1992 SIGMOIDOSCOPY SIGMOIDOSCOPY [facility] Start: 1965 Depression Screening Depression Scre ening [facility] End: 01-13-2026 EMG(NEURO/NI) EMG(NEURO/NI) EMG Routine Neuropathy 1 Occurrences starting 01/13/2025 until 01/13/2026 [facility] Work Phone: Comment on above: 1 Occurrences starti ng 01/13/2025 until 01/13/2026 End: 11-09-2023 ROSSY SCREENING ROSSY SCREENING Radiology Routine Encounter for screening mammogram for malignant neoplasm of breast 1 Occurrences starting 10/10/2022 until 11/09/2023 [facility] Work Phone: Comment on above: 1 Occurrences starti ng 10/10/2022 until 11/09/2023 End: 01-03-2026 MR Brain WO contrast MRI BRAIN WO IVCON Radiology Routine Speech disturbance, unspecified type Coordination abnormal Recurrent falls Balance problem 1 Occurrences starting 12/04/2024 until 01/03/2026 [facility] Comment on above: 1 Occurrences starti ng 12/04/2024 until 01/03/2026 End: 01-03-2026 MRA Head vessels WO contrast MRA BRAIN WO IVCON Radiology Routine Speech disturbance, unspecified type Coordination abnormal Recurrent falls Balance problem 1 Occurrences starting 12/04/2024 until 01/03/2026 [facility] Comment on above: 1 Occurrences starti ng 12/04/2024 until 01/03/2026 End: 01-03-2026 MRA Neck vessels WO contrast MRA CAROTID WO IVCON Radiology Routine Speech disturbance, unspecified type Coordination abnormal Recurrent falls Balance problem 1 Occurrences starting 12/04/2024 until 01/03/2026 [facility] Comment on above: 1 Occurrences starti ng 12/04/2024 until 01/03/2026 End: 01-03-2026 XR Pelvis and Hip - left AP and Lateral frog XR HIP GENERAL 3V PELV/AP/LAT LEFT Radiology Routine Pain in left hip 1 Occurrences starting 12/04/2024 until 01/03/2026 [facility] Work Phone: Comment on above: 1 Occurrences starti ng 12/04/2024 until 01/03/2026 XR Pelvis and Hip - left AP and Lateral frog XR HIP GENERAL 3V PELV/AP/LAT LEFT Radiology Routine Pain in left hip 12/04/2024 9:35 AM EST [facility] Immunizations Immunization Date Immunization Notes Care Provider Jose higginbotham 11-09-2020 zoster vaccine recombinant Wen Podlogar PELLETIZER TENDER.TRACTOR OPERATOR Work Phone: [facility] 08-31-2020 pneumococcal conjuga te vaccine, 13 valent Wen Podlogar PELLETIZER TENDER.TRACTOR OPERATOR Work Phone: [facility] 08-31-2020 zoster vaccine recombinant Wen Podlogar PELLETIZER TENDER.TRACTOR OPERATOR Work Phone: [facility] 08-31-2020 influenza virus vacc ine, unspecified formulation Screen Wstr [facility] 08-06-2019 influenza, high dose seasonal, preservative-free Wen Podlogar PELLETIZER TENDER.TRACTOR OPERATOR Work Phone: [facility] 09-12-2015 hepatitis B vaccine, adult dosage Wen Podlogar PELLETIZER TENDER.TRACTOR OPERATOR Work Phone: [facility] 03-28-2015 hepatitis B vaccine, adult dosage Wen Podlogar PELLETIZER TENDER.TRACTOR OPERATOR Work Phone: [facility] 02-21-2015 hepatitis B vaccine, adult dosage Wen Podlogar PELLETIZER TENDER.TRACTOR OPERATOR Work Phone: [facility] 07-05-2014 pneumococcal polysaccharide vaccine, 23 valent Wen Podlogar PELLETIZER TENDER.TRACTOR OPERATOR Work Phone: [facility] 11-08-2009 novel influenza-H1N1 -09, preservative-free, injectable Wen Podlogar PELLETIZER TENDER.TRACTOR OPERATOR Work Phone: [facility] Payers Date Payer Category Payer Self-pay 2021 Medicare HUMANA MEDICARE HUMANA MEDICARE PPO [id number] 2021-Present [phone] [address] [place] [address] PPO [id number] 2021 Medicare HUMANA MEDICARE HU[employer]NA MEDICARE PPO [id number] 2021-Present [phone] [address] [place] [address] PPO [id number] 2021 Medicare (Managed Care) [facility]OR[facility] [id number] 2021 Medicare [id number] 2012 Medicare AN[employer]M MEDICARE PPO [id number] Unknown [id number] Unknown [id number] Unknown [id number] Social History Date Type Detail Facility Start: 09-06-2013 End: 12-04-2024 Tobacco smoking status NHIS Ex-smoker [facility] Work Phone: Start: 09-06-1963 End: 09-06-1980 History of tobacco use Current smoker [facility] Work Phone: Start: [birth year]-06-1963 End: 09-06-1980 History of tobacco use Cigarette Smoker [facility] Work Phone: Start: 09-06-2013 End: 01-13-2025 Cigarettes smoked current (pack per day) - Reported 1 [facility] Start: 09-06-2013 End: 12-04-2024 Tobacco use and exposure Smokeless tobacco non-user [facility] Work Phone: Start: 09-06-2021 End: 04-01-2025 Alcohol intake Current non-drinker of alcohol (finding) [facility] Start: 05-17-2020 History SDOH Alcohol Frequency 1 [facility] Start: 05-17-2020 History SDOH Physical Activity DPW 5 [facility] Start: 05-17-2020 End: 08-26-2021 History SDOH Physical Activity MPS 3 [facility] Start: 08-26-2021 History SDOH Housing Places Lived 0 [facility] Start: 1945 Sex Assigned At Female [facility] Start: 05-17-2020 End: 01-13-2025 Alcohol Use Disorder Identification Test - Consumption [AUDIT-C] [facility] How often to you hav e a drink containing alcohol? Never [facility] Average Number of Drinks Not on file [facility] Do you feel stress - tense, restless, nervous, or anxious, or unable to sleep at night because your mind is troubled all the time - these days [OSQ] Not at all [facility] Start: 11-22-2020 Gender identity Identifies as female gender (finding) [facility] Start: 05-17-2020 Sexual orientation Choose not to disclose [facility] Start: 07-22-2023 Tobacco smoking status NHIS Never smoked tobacco (finding) [facility] Start: 09-01-2013 None None [facility] Start: 09-01-2013 Alone Alone [facility] Start: 09-01-2013 Non-smoker Non-smoker [facility] Start: 02-08-2025 Sex Female (finding) [facility] Medical Equipment Procedure Code Equipment Code Equipment Origin al Text Equipment Identifier Dates Test blood sugar(s) 3 times daily. Dx: Type 2 DM - Controlled E11.9 Insulin: Yes Accucheck smartview test strips [id number] Start: 04-29-2017 Comment on above: Test blood sugar(s) 3 times daily. Dx: Type 2 DM - Controlled E11.9 Insulin: Yes Accucheck smartview test strips Functional Status Date Assessment Result Facility 04-07-2014 Are you deaf, or do you have serious difficulty hearing No 04/07/2014 12:00 PM EDT Patricia Powell RN No [facility] Work Phone: 04-07-2014 Are you blind, or do you have serious difficulty seeing, even when wearing glasses No 04/07/2014 12:00 PM EDT Patricia Powell RN No [facility] 04-07-2014 Do you have serious difficulty walking or climbing stairs 04/07/2014 12:00 PM EDT Patricai Powell RN [facility] 04-07-2014 Do you have difficul ty dressing or bathing 04/07/2014 12:00 PM EDT Patricia Powell RN [facility] 04-07-2014 Because of a physica l, mental, or emotional condition, do you have difficulty doing errands alone such as visiting a physician's office or shopping 04/07/2014 12:00 PM EDT Patricia Powell RN [facility] Mental Status Date Assessment Result Facility 04-07-2014 Because of a physica l, mental, or emotional condition, do you have serious difficulty concentrating, remembering, or making decisions No 04/07/2014 12:00 PM EDT Patricia Powell RN No [facility] Clinical Notes 02-28-2022 to 04-01-2025 Telephone Encounter - Vilma Edwards OCCA - 04/01/2025 12:15 PM EDTTelephone Encounter - Vilma Edwards OCCA - 04/01/2025 12:15 PM EDTTRut askew APRN.CNP - 04/01/2025 9:30 AM EDT Note Date & Type Note Facility 04-01-2025 Telephone encount er Note Added Guero Juares CNP to patient care team. OV note from today faxed as requested. ANURAG Ray [facility] 04-01-2025 Miscellaneous Notes Formattin g of this note might be different from the original. Added Guero Juares CNP to patient care team. OV note from today faxed as requested. ANURAG Ray Please fax my progress note to her PCP Guero Juares CNP at [facility] Rut Gama APRN.TRACTOR OPERATOR documented in this encounter [facility] 04-01-2025 Telephone encount er Note Please fax my progress note to her PCP Guero Juares CNP at [facility] Rut Gama APRN.TRACTOR OPERATOR [facility] 04-01-2025 History of Presen t illness Narrative Images from the original note were not included. [facility] Follow up/ Established patient visit Recording using Qustodio software for draft documentation of the visit was discussed with the patient/authorized sales account representative; all questions welcomed and answered. Patient/authorized sales account representative agreed to proceed Assessment/Plan from last visit: Date of last visit : 02/04/2025 IMPRESSION/PLAN: G47.00 Insomnia, unspecified type (primary encounter diagnosis) G47.33 FINA on CPAP Aimee Cancino is a pleasant 79 year old female with insomnia that she reports began when she started PAP therapy for moderate FINA. She struggles with sleep maintenance insomnia, especially terminal insomnia. She spends a significant amt of time in bed watching TV. --Patient is compliant with PAP therapy and reports subjective benefits from treatment --We reviewed PAP compliance report; AHI is normalized - Continue CPAP at 7 cmH2O. - Remember to clean your mask and equipment regularly, as directed. - You should be eligible for new supplies approximately every 3-6 months, depending on your insurance coverage. Contact your Durable Medical Equipment (DME) company for new supplies as needed. Discussed hyperarousal state and underlying causes of insomnia. Recommend she not spend any time in bed watching TV; need to retrain the brain to understand that bed=sleep. Start Belsomra 10 mg for medical treatment of insomnia. If too expensive then we will try trazodone 100 mg (50 mg wasn't effective) Follow up in 2 months in the office. Recommend scheduling this appointment now to ensure the best time for you. Rut Gama APRN.EUGENIE CURRENT VISIT: 04/01/2025 - Patient is a 79-year-old female presenting for f/u insomnia that began in 2019 when she started using CPAP. She is very pleased with the 100 mg dose of trazodone, no adverse effects - Reports that trazodone has increased her sleeping about 75% of the time. - Previously on 50 mg of trazodone which did not work, currently on 100 mg which seems effective. - Previously, she was putting her CPAP on at 20:00, watching TV for a couple of hours, falling asleep at 22:00, but waking up at 03:30 and unable to go back to sleep. - Currently, she wakes up to use the bathroom and falls back asleep within 10 minutes. - Occasionally still wakes up at 03:30 but not on a regular basis. - Slept for 10 hours one night and 12 hours another night recently - Denies needing to use Benadryl any more for sleep. - Hip and Lower Back Pain can affect the quality and quantity of her sleep - CPAP Usage - Patient has been using CPAP since 2019. followed by primary care. she would like primary care to take over prescribing trazodone. - Reports doing well with CPAP usage, despite experiencing bhagat on her face from the mask. SLEEP APNEA Sleep apnea type : FINA, Most Recent Apnea-Hypopnea Index (AHI): 18.8 Treatment : PAP therapy DME: [facility] PAP History: Uses CPAP for 7.5 hours per night, 7 nights per week. Current PAP settin cm H2O. Difficulties with CPAP: None Reviewed objective PAP compliance data: AHI 1.5 Mask type: full face mask Mask issues: none There is a perceived benefit by the patient PATIENT-ENTERED QUESTIONNAIRE SLEEP SCORES: 03/26/2025 Sleep Questions Reason for visit: Difficulty falling or staying asleep or poor sleep quality Average hours of CPAP per night: 7 Percent of nights CPAP used at least 4 hours: 100 Accidents or near accidents due to drowsy drivin 01/28/2025 03/26/2025 [place] Sleepiness Scale Score 8 (No clinically significant daytime sleepiness) 3 (No clinically significant daytime sleepiness) 01/28/2025 03/26/2025 PROMIS CAT Sleep Disturbance PROMIS Sleep Disturbance T-Score 62 (moderate) 51 (within normal limits) PROMIS Sleep Disturbance Percentile 12 46 01/28/2025 Insomnia Severity Index Score 22 01/28/2025 Restless Leg Syndrome Score 12 (Moderate symptoms) 01/28/2025 03/26/2025 PHQ-9 Score 13 6 02/05/2019 11/16/2024 03/26/2025 PROMIS Global Health - (T-Scores - the mean of general population = 50. Five points is a clinically meaningful difference.) Physical T-Score 57.7 42.3 39.8 Mental T-Score 62.5 56 56 03/26/2025 Sleep Questions Reason for visit: Difficulty falling or staying asleep or poor sleep quality Average hours of CPAP per night: 7 Percent of nights CPAP used at least 4 hours: 100 Accidents or near accidents due to drowsy drivin 01/28/2025 03/26/2025 [place] Sleepiness Scale Score 8 (No clinically significant daytime sleepiness) 3 (No clinically significant daytime sleepiness) 01/28/2025 03/26/2025 PROMIS CAT Sleep Disturbance PROMIS Sleep Disturbance T-Score 62 (moderate) 51 (within normal limits) PROMIS Sleep Disturbance Percentile 12 46 01/28/2025 Insomnia Severity Index Score 22 01/28/2025 Restless Leg Syndrome Score 12 (Moderate symptoms) 01/28/2025 03/26/2025 PHQ-9 Score 13 6 02/05/2019 11/16/2024 03/26/2025 PROMIS Global Health - (T-Scores - the mean of general population = 50. Five points is a clinically meaningful difference.) Physical T-Score 57.7 42.3 39.8 Mental T-Score 62.5 56 56 ALLERGIES No Known Allergies CURRENT MEDICATIONS: atorvastatin (LIPITOR) 20 mg tablet Take 1 tablet by mouth daily at bedtime. For cholesterol. metoprolol succinate ER (TOPROL XL) 25 mg 24 hr tablet Take 1 tablet by mouth once daily. sertraline (ZOLOFT) 50 mg tablet Take 1 tablet by mouth once daily. metFORMIN ER (GLUCOPHAGE XR) 500 mg 24 hr tablet Take 1 tablet by mouth daily with breakfast. lisinopril (ZESTRIL, PRINIVIL) 20 mg tablet Take 0.5 tablets by mouth once daily. CPAP Initiate CPAP @ 7 cm of water with humidification. Mask (per patient preference) optional chin strap (if indicated) , filters, tubing, humidifier and lifetime supplies. blood sugar diagnostic (ACCU-CHEK ALEJANDRA) test strip Test blood sugar(s) 3 times daily. Dx: Type 2 DM - Controlled E11.9 Insulin: Yes Accucheck smartview test strips [START ON 04/20/2025] traZODone (DESYREL) 100 mg tablet Take 1 tablet by mouth daily at bedtime. Patient should start on April 20, 2025. PHYSICAL EXAMINATION: Vital Signs: BP 92/60 Pulse 61 Resp 16 Wt 93.6 kg (206 lb 6.4 oz) SpO2 97% BMI 36.56 kg/m PHYSICAL EXAM: General appearance: pleasant, NAD Mental status: alert and oriented, able to provide own history Constitutional: obese Skin: No visible rashes on exposed skin Assessment /Plan Insomnia, unspecified type (primary encounter diagnosis) Fina on cpap Aimee Cancino is a delightful 79 year old female with 1. Insomnia, unspecified type Improved with Trazodone 100 mg, increasing sleep duration by approximately 75%. No longer requires Benadryl for sleep. No reported side effects such as morning drowsiness. - Continue Trazodone 100 mg nightly. - Sent prescription for a 90-day supply to [facility], effective April 20, refills for one yr - fine to have primary care take over this rx, they already manage her PAP therapy - will fax note to PCP Guero Juares CNP at [facility] 2. FINA on CPAP Well-managed with CPAP therapy. Recent CPAP report shows excellent compliance. - Continue current CPAP therapy. Rut Gama APRN.CNP documented in this encounter [facility] 04-01-2025 Note HNO ID: [id number] Author: RUT GAMA APRN.CNP Service: ? Author Type: Nurse Practitioner Type: Progress Notes Filed: 04/01/2025 12:05 Note Text: [facility] Follow up/ Established patient visit Recording using ambient Awesomi software for draft documentation of the visit was discussed with the patient/authorized sales account representative; all questions welcomed and answered. Patient/authorized sales account representative agreed to proceed Assessment/Plan from last visit: Date of last visit : 02/04/2025 IMPRESSION/PLAN: G47.00 Insomnia, unspecified type (primary encounter diagnosis) G47.33 FINA on CPAP Aimee Cancino is a pleasant 79 year old female with insomnia that she reports began when she started PAP therapy for moderate FINA. She struggles with sleep maintenance insomnia, especially terminal insomnia. She spends a significant amt of time in bed watching TV. --Patient is compliant with PAP therapy and reports subjective benefits from treatment --We reviewed PAP compliance report; AHI is normalized - Continue CPAP at 7 cmH2O. - Remember to clean your mask and equipment regularly, as directed. - You should be eligible for new supplies approximately every 3-6 months, depending on your insurance coverage. Contact your Durable Medical Equipment (DME) company for new supplies as needed. Discussed hyperarousal state and underlying causes of insomnia. Recommend she not spend any time in bed watching TV; need to retrain the brain to understand that bed=sleep. Start Belsomra 10 mg for medical treatment of insomnia. If too expensive then we will try trazodone 100 mg (50 mg wasn't effective) Follow up in 2 months in the office. Recommend scheduling this appointment now to ensure the best time for you. Rut Gama APRN.TRACTOR OPERATOR CURRENT VISIT: 04/01/2025 - Patient is a 79-year-old female presenting for f/u insomnia that began in 2019 when she started using CPAP. She is very pleased with the 100 mg dose of trazodone, no adverse effects - Reports that trazodone has increased her sleeping about 75% of the time. - Previously on 50 mg of trazodone which did not work, currently on 100 mg which seems effective. - Previously, she was putting her CPAP on at 20:00, watching TV for a couple of hours, falling asleep at 22:00, but waking up at 03:30 and unable to go back to sleep. - Currently, she wakes up to use the bathroom and falls back asleep within 10 minutes. - Occasionally still wakes up at 03:30 but not on a regular basis. - Slept for 10 hours one night and 12 hours another night recently - Denies needing to use Benadryl any more for sleep. - Hip and Lower Back Pain can affect the quality and quantity of her sleep - CPAP Usage - Patient has been using CPAP since 2019. followed by primary care. she would like primary care to take over prescribing trazodone. - Reports doing well with CPAP usage, despite experiencing bhagat on her face from the mask. SLEEP APNEA Sleep apnea type : FINA, Most Recent Apnea-Hypopnea Index (AHI): 18.8 Treatment : PAP therapy DME: [facility] PAP History: Uses CPAP for 7.5 hours per night, 7 nights per week. Current PAP settin cm H2O. Difficulties with CPAP: None Reviewed objective PAP compliance data: AHI 1.5 Mask type: full face mask Mask issues: none There is a perceived benefit by the patient PATIENT-ENTERED QUESTIONNAIRE SLEEP SCORES: 03/26/2025 Sleep Questions Reason for visit: Difficulty falling or staying asleep or poor sleep quality Average hours of CPAP per night: 7 Percent of nights CPAP used at least 4 hours: 100 Accidents or near accidents due to drowsy drivin 01/28/2025 03/26/2025 [place] Sleepiness Scale Score 8 (No clinically significant daytime sleepiness) 3 (No clinically significant daytime sleepiness) 01/28/2025 03/26/2025 PROMIS CAT Sleep Disturbance PROMIS Sleep Disturbance T-Score 62 (moderate) 51 (within normal limits) PROMIS Sleep Disturbance Percentile 12 46 01/28/2025 Insomnia Severity Index Score 22 01/28/2025 Restless Leg Syndrome Score 12 (Moderate symptoms) 01/28/2025 03/26/2025 PHQ-9 Score 13 6 02/05/2019 11/16/2024 03/26/2025 PROMIS Global Health - (T-Scores - the mean of general population = 50. Five points is a clinically meaningful difference.) Physical T-Score 57.7 42.3 39.8 Mental T-Score 62.5 56 56 03/26/2025 Sleep Questions Reason for visit: Difficulty falling or staying asleep or poor sleep quality Average hours of CPAP per night: 7 Percent of nights CPAP used at least 4 hours: 100 Accidents or near accidents due to drowsy drivin 01/28/2025 03/26/2025 [place] Sleepiness Scale Score 8 (No clinically significant daytime sleepiness) 3 (No clinically significant daytime sleepiness) 01/28/2025 03/26/2025 PROMIS CAT Sleep Disturbance PROMIS Sleep (more content not included)... [facility] 02-22-2025 History of Presen t illness Narrative Radiology Service Progress Note PATIENT NAME: Aimee Cancino DATE OF SERVICE: February 22, 2025 TIME: 8:57 AM PATIENT IDENTITY VERIFICATION COMPLETED USING TWO (2) IDENTIFIERS: Name and Date of confirmed by patient verbally. FALL SCREENING: Has the patient had 2 falls in the last year or 1 fall with injury or currently using an Ambulatory Assistive Device (Walker, Cane, Wheelchair, Crutches, etc.)? Yes, Patient High Risk for Falls What interventions were put in place to prevent falls during this visit? Increased Observations by Caregivers PATIENT GENDER DATA: Assigned female at . status: : No status: NO. PATIENT RELEVANT IMPLANT DATA REVIEWED: Not Applicable PATIENT PRESENTS WITH AN IMPLANTABLE OR ATTACHED PACKING ROOM SUPERVISOR: No RADIOLOGY DEPARTMENT: Bone Density PERIPHERAL IV DATA: Not applicable SIGNED BY: RT Tony(Cassandra) February 22, 2025 8:57 AM documented in this encounter [facility] 02-22-2025 Note HNO ID: [id number] Author: BETTY MEDEROS RT(Cassandra) Service: ? Author Type: Technologist Type: Progress Notes Filed: 02/22/2025 08:58 Note Text: Radiology Service Progress Note PATIENT NAME: Aimee Cancino DATE OF SERVICE: February 22, 2025 TIME: 8:57 AM PATIENT IDENTITY VERIFICATION COMPLETED USING TWO (2) IDENTIFIERS: Name and Date of confirmed by patient verbally. FALL SCREENING: Has the patient had 2 falls in the last year or 1 fall with injury or currently using an Ambulatory Assistive Device (Walker, Cane, Wheelchair, Crutches, etc.)? Yes, Patient High Risk for Falls What interventions were put in place to prevent falls during this visit? Increased Observations by Caregivers PATIENT GENDER DATA: Assigned female at . status: : No status: NO. PATIENT RELEVANT IMPLANT DATA REVIEWED: Not Applicable PATIENT PRESENTS WITH AN IMPLANTABLE OR ATTACHED PACKING ROOM SUPERVISOR: No RADIOLOGY DEPARTMENT: Bone Density PERIPHERAL IV DATA: Not applicable SIGNED BY: ALVA Jimenez) February 22, 2025 8:57 AM [facility] 02-22-2025 History of Presen t illness Narrative Radiology Service Progress Note PATIENT NAME: Aimee Cancino DATE OF SERVICE: February 22, 2025 TIME: 8:59 AM PATIENT IDENTITY VERIFICATION COMPLETED USING TWO (2) IDENTIFIERS: Name and Date of confirmed by patient verbally. FALL SCREENING: Has the patient had 2 falls in the last year or 1 fall with injury or currently using an Ambulatory Assistive Device (Walker, Cane, Wheelchair, Crutches, etc.)? No PATIENT GENDER DATA: Assigned female at . status: : No status: NO. PATIENT RELEVANT IMPLANT DATA REVIEWED: Not Applicable PATIENT PRESENTS WITH AN IMPLANTABLE OR ATTACHED PACKING ROOM SUPERVISOR: No RADIOLOGY DEPARTMENT: Mammography PERIPHERAL IV DATA: Not applicable SIGNED BY: Meredith Hernandez February 22, 2025 8:59 AM documented in this encounter [facility] 02-22-2025 Note HNO ID: [id number] Author: YUKI MARSHALL Mammo Tech Service: ? Author Type: Marketing Strategy Analyst Type: Progress Notes Filed: 02/22/2025 09:00 Note Text: Radiology Service Progress Note PATIENT NAME: Aimee Cancino DATE OF SERVICE: February 22, 2025 TIME: 8:59 AM PATIENT IDENTITY VERIFICATION COMPLETED USING TWO (2) IDENTIFIERS: Name and Date of confirmed by patient verbally. FALL SCREENING: Has the patient had 2 falls in the last year or 1 fall with injury or currently using an Ambulatory Assistive Device (Walker, Cane, Wheelchair, Crutches, etc.)? No PATIENT GENDER DATA: Assigned female at . status: : No status: NO. PATIENT RELEVANT IMPLANT DATA REVIEWED: Not Applicable PATIENT PRESENTS WITH AN IMPLANTABLE OR ATTACHED PACKING ROOM SUPERVISOR: No RADIOLOGY DEPARTMENT: Mammography PERIPHERAL IV DATA: Not applicable SIGNED BY: Meredith Hernandez February 22, 2025 8:59 AM [facility] 02-03-2025 Procedure note [facility] 01-29-2025 Instructions Rut Gama APRN.[facility] - 01/29/2025 8:45 AM EDT Belsomra 10mg for insomnia, can take 8 weeks to see full effect, we can increase this dose if needed documented in this encounter [facility] 01-29-2025 Note HNO ID: [id number] Author: RUT GAMA APRN.CNP Service: ? Author Type: Nurse Practitioner Type: Progress Notes Filed: 01/29/2025 12:43 Note Text: [facility] New Patient Evaluation PATIENT NAME: Aimee Cancino DATE OF SERVICE: January 29, 2025 CONSULTING PROVIDER: Chauncey Jang [address] [place] [address] REASON FOR CONSULT: Chauncey Jang Jr. sends the patient for an opinion about FINA. My findings and recommendations will be transmitted electronically via shared medical record to the consulting provider. She is being followed by Gen Neuro for abnl coordination, balance problem, recurrent falls, neuropathy. HPI: Aimee Cancino is a 79 year old female. Sleep-related history: "I'm here because of insomnia", it started when she started using CPAP in 2019. She is hoping to get hypoglossal nerve stimulation (Inspire). She says she doesn't want another sleep study. SLEEP-WAKE SCHEDULE Puts PAP on at 8 PM, watches TV for a couple of hours. Falls asleep at 10 PM. Always wakes at 330 AM, doesn't go back to sleep. "I don't believe in naps." She feels tired all day. She takes diphenhydramine 50 mg about once every 3 wks, the last time she took it she slept until 9 AM. Wakes intermittently about 4x to urinate when she sleeps longer like that. Can be hard to fall back asleep. Other meds for insomnia: Melatonin--ineffective Trazodone 50 mg--ineffective Average total sleep time (in a 24 hour period): 5 hours. SLEEP-RELATED DETAILS Preferred sleep position: side, side/prone Breathing disturbances and other behaviors during sleep: occas wakes self up snoring if not using PAP. GERD or aspiration: No Waking up with heart pounding or racing: No Anxiety or rumination: No She does not report having an urge to move the legs in the evening (when resting) that is accompanied or caused by uncomfortable and/or unpleasant sensations in the legs. PSG showed elevated PLMs that improved with PAP on her titration study. She denies any history of parasomnias. Daytime sleepiness is a concern, coincides with start of insomnia when she started PAP in 2018 She does not report sleep paralysis or sleep-related hallucinations WAKE-RELATED DETAILS She does not work. She does have difficulty with memory She denies falling asleep or dozing off when driving. She does not take naps. She does drink 5 cups of coffee in the morning caffeinated beverages per day. There has not been a recent change in weight. Patient Questionnaires Sleep Scores 01/28/2025 Sleep Questions Reason for visit: Sleep apnea Difficulty falling or staying asleep or poor sleep quality Excessive daytime sleepiness Abnormal sleep/wake timing On average, hours of sleep in 24 hours: 5 Accidents or near accidents due to drowsy drivin Multiple values from one day are sorted in reverse-chronological order 01/28/2025 [place] Sleepiness Scale Score 8 (No clinically significant daytime sleepiness) 01/28/2025 PROMIS CAT Sleep Disturbance PROMIS Sleep Disturbance T-Score 62 (moderate) PROMIS Sleep Disturbance Percentile 12 01/28/2025 Insomnia Severity Index Score 22 01/28/2025 Restless Leg Syndrome Score 12 (Moderate symptoms) 01/28/2025 PHQ-9 Score 13 11/16/2024 PROMIS Global Health - (T-Scores - the mean of general population = 50. Five points is a clinically meaningful difference.) Physical T-Score 42.3 Mental T-Score 56 PAST TREATMENTS: CPAP 7 cmH2 12,000+ hrs Benefits: "supposedly I stop breathing so it helps that" Reviewed report for 30 days: AHI 1.1, uses almost 8 hrs per night PRIOR SLEEP STUDIES: 03/21/19 PSG at [facility]: AHI 18.8, PLM index 50, PLM arousal index 10 04/17/19 PAP titration at [facility]: PLM index 9, PLM arousal index 1, recommended CPAP 10 cmH2O PAST MEDICAL HISTORY Diagnosis Date Actinomycosis 2012 Anxiety DDD (degenerative disc disease), cervical severe C5-C6 DDD (degenerative disc disease), thoracic mild Diabetes (HCC) type 2 HTN (hypertension) Obesity FINA (obstructive sleep apnea) on CPAP [address] Rosa pulmonology PVC (premature ventricular contraction) Vertigo PAST SURGICAL HISTORY Procedure Laterality Date COLONOSCOPY FLX DX W/COLLJ SPEC WHEN PFRMD 07/16/2017 tubular adenoma-repeat in 5 years FRACTURE NASAL TURBINATE(S), THERAPEUTIC 09/07/13 Right NASAL/SINUS ENDOSCOPY W/MAXILLARY ANTROSTOMY 09/07/13 Right NASAL/SINUS NDSC SURG MEDIALANDINF ORB WALL DCMPRN 09/07/13 Right NASAL/SINUS NDSC SURG W/DACRYOCSTORHINOSTOMY 09/07/13 Right NASAL/SINUS NDSC W/TOTAL ETHOIDECTOMY 09/07/13 Right SCREENING COLONSCOPY NOT HIGH RISK , normal STRTCTC CPTR ASSTD PX EXTRADURAL CRANIAL 09/07/13 TONSILLECTOMY HX ACTIVE PROBLEM LIST Summary Orbital cellulitis and preseptal cellulitis Dvt Prophylaxis Htn (Hypertension) Diabetes Mellitus (Hcc) Colon Cancer Screening Anxiety Ddd (Degenera (more content not included)... [facility] 01-29-2025 History of Presen t illness Narrative Images from the original note were not included. [facility] New Patient Evaluation PATIENT NAME: Aimee Cancino DATE OF SERVICE: January 29, 2025 CONSULTING PROVIDER: Chauncey Jang [address] [place] [address] REASON FOR CONSULT: Chauncey Jang Jr. sends the patient for an opinion about FINA. My findings and recommendations will be transmitted electronically via shared medical record to the consulting provider. She is being followed by Gen Neuro for abnl coordination, balance problem, recurrent falls, neuropathy. HPI: Aimee Cancino is a 79 year old female. Sleep-related history: "I'm here because of insomnia", it started when she started using CPAP in 2019. She is hoping to get hypoglossal nerve stimulation (Inspire). She says she doesn't want another sleep study. SLEEP-WAKE SCHEDULE Puts PAP on at 8 PM, watches TV for a couple of hours. Falls asleep at 10 PM. Always wakes at 330 AM, doesn't go back to sleep. "I don't believe in naps." She feels tired all day. She takes diphenhydramine 50 mg about once every 3 wks, the last time she took it she slept until 9 AM. Wakes intermittently about 4x to urinate when she sleeps longer like that. Can be hard to fall back asleep. Other meds for insomnia: Melatonin--ineffective Trazodone 50 mg--ineffective Average total sleep time (in a 24 hour period): 5 hours. SLEEP-RELATED DETAILS Preferred sleep position: side, side/prone Breathing disturbances and other behaviors during sleep: occas wakes self up snoring if not using PAP. GERD or aspiration: No Waking up with heart pounding or racing: No Anxiety or rumination: No She does not report having an urge to move the legs in the evening (when resting) that is accompanied or caused by uncomfortable and/or unpleasant sensations in the legs. PSG showed elevated PLMs that improved with PAP on her titration study. She denies any history of parasomnias. Daytime sleepiness is a concern, coincides with start of insomnia when she started PAP in 2018 She does not report sleep paralysis or sleep-related hallucinations WAKE-RELATED DETAILS She does not work. She does have difficulty with memory She denies falling asleep or dozing off when driving. She does not take naps. She does drink 5 cups of coffee in the morning caffeinated beverages per day. There has not been a recent change in weight. Patient Questionnaires Sleep Scores 01/28/2025 Sleep Questions Reason for visit: Sleep apnea Difficulty falling or staying asleep or poor sleep quality Excessive daytime sleepiness Abnormal sleep/wake timing On average, hours of sleep in 24 hours: 5 Accidents or near accidents due to drowsy drivin Multiple values from one day are sorted in reverse-chronological order 01/28/2025 [place] Sleepiness Scale Score 8 (No clinically significant daytime sleepiness) 01/28/2025 PROMIS CAT Sleep Disturbance PROMIS Sleep Disturbance T-Score 62 (moderate) PROMIS Sleep Disturbance Percentile 12 01/28/2025 Insomnia Severity Index Score 22 01/28/2025 Restless Leg Syndrome Score 12 (Moderate symptoms) 01/28/2025 PHQ-9 Score 13 11/16/2024 PROMIS Global Health - (T-Scores - the mean of general population = 50. Five points is a clinically meaningful difference.) Physical T-Score 42.3 Mental T-Score 56 PAST TREATMENTS: CPAP 7 cmH2 12,000+ hrs Benefits: "supposedly I stop breathing so it helps that" Reviewed report for 30 days: AHI 1.1, uses almost 8 hrs per night PRIOR SLEEP STUDIES: 03/21/19 PSG at [facility]: AHI 18.8, PLM index 50, PLM arousal index 10 04/17/19 PAP titration at [facility]: PLM index 9, PLM arousal index 1, recommended CPAP 10 cmH2O PAST MEDICAL HISTORY Diagnosis Date Actinomycosis 2012 Anxiety DDD (degenerative disc disease), cervical severe C5-C6 DDD (degenerative disc disease), thoracic mild Diabetes (HCC) type 2 HTN (hypertension) Obesity FINA (obstructive sleep apnea) on CPAP [address] Rosa pulmonology PVC (premature ventricular contraction) Vertigo PAST SURGICAL HISTORY Procedure Laterality Date COLONOSCOPY FLX DX W/COLLJ SPEC WHEN PFRMD 07/16/2017 tubular adenoma-repeat in 5 years FRACTURE NASAL TURBINATE(S), THERAPEUTIC 09/07/13 Right NASAL/SINUS ENDOSCOPY W/MAXILLARY ANTROSTOMY 09/07/13 Right NASAL/SINUS NDSC SURG MEDIAL&INF ORB WALL DCMPRN 09/07/13 Right NASAL/SINUS NDSC SURG W/DACRYOCSTORHINOSTOMY 09/07/13 Right NASAL/SINUS NDSC W/TOTAL ETHOIDECTOMY 09/07/13 Right SCREENING COLONSCOPY NOT HIGH RISK , normal STRTCTC CPTR ASSTD PX EXTRADURAL CRANIAL 09/07/13 TONSILLECTOMY HX ACTIVE PROBLEM LIST Summary Orbital cellulitis and preseptal cellulitis Dvt Prophylaxis Htn (Hypertension) Diabetes Mellitus (Hcc) Colon Cancer Screening Anxiety Ddd (Degenerative Disc Disease), Cervical Fina (Obstructive Sleep Apnea) Obesity Allergies As of Date: 01/29/2025 (No Known Allergies) Fully Assessed 01/29/2025 CURRENT MEDICATIONS: atorvastatin (LIPITOR) 20 mg tablet Take 1 tablet by mouth daily at bedtime. For cholesterol. metoprolol succinate ER (TOPROL XL) 25 mg 24 hr tablet Take 1 tablet by mouth once daily. sertraline (ZOLOFT) 50 mg tablet Take 1 tablet by mouth once daily. metFORMIN ER (GLUCOPHAGE XR) 500 mg 24 hr tablet Take 1 tablet by mouth daily with breakfast. lisinopril (ZESTRIL, PRINIVIL) 20 mg tablet Take 0.5 tablets by mouth once daily. blood sugar diagnostic (ACCU-CHEK ALEJANDRA) test strip Test blood sugar(s) 3 times daily. Dx: Type 2 DM - Controlled E11.9 Insulin: Yes Accucheck smartview test strips suvorexant (BELSOMRA) 10 mg tab Take 1 tablet by mouth daily at bedtime for 90 days. CPAP Initiate CPAP @ 7 cm of water with humidification. Mask (per patient preference) optional chin strap (if indicated) , filters, tubing, humidifier and lifetime supplies. Prior RLS Medications (last 20 years) 09/11/2013 18:21 RLS Medications hydrocodone/acetaminophen 1 tablet, ORAL, EVERY 6 HOURS NEEDED, Starting on 09/05/13 at 1958, Until 09/11/13 at 1821, moderate pain (4-6), severe pain (>/=7) -Discontinued (AUTO DC AT D) Details Hospital medication Prior Insomnia Medications (last 20 years) 01/29/2025 00:00 Insomnia Medications suvorexant 10 mg AT BEDTIME ORAL sertraline HCl 50 mg DAILY ORAL Patient has taken differently: Taking as prescribed as of 01/13/2025 8:19 AM Patient not taking as of 12/04/2024 8:11 AM Details Outpatient prescription Medication marked as long-term Review of Systems Constitutional: Positive for fatigue. Negative for recent unintentional weight change. Cardiovascular: Negative for palpitations. Gastrointestinal: Negative for heartburn. Genitourinary: Positive for nocturia. Neurological: Negative for headaches. SOCIAL HISTORY: Social History Tobacco Use Smoking status: Former Current packs/day: 0.00 Average packs/day: 1 pack/day for 15.0 years (15.0 ttl pk-yrs) Types: Cigarettes Start date: 09/06/1965 Quit date: 09/06/1980 Years since quittin.4 Smokeless tobacco: Never Substance Use Topics Alcohol use: No Drug use: No FAMILY HISTORY: FAMILY HISTORY Problem Relation Age of Onset Alzheimer's Disease Mother Diabetes Mother other (ALS) Father Diabetes Sister Diabetes Sister PHYSICAL EXAMINATION: Vital Signs: BP 138/82 Pulse 64 Resp 18 Wt 88.4 kg (194 lb 14.4 oz) SpO2 97% BMI 34.52 kg/m PHYSICAL EXAM: General appearance: pleasant, NAD Mental status: alert and oriented, able to provide own history Constitutional: obese Skin: No visible rashes on exposed skin IMPRESSION/PLAN: G47.00 Insomnia, unspecified type (primary encounter diagnosis) G47.33 FINA on CPAP Aimee Hill is a pleasant 79 year old female with insomnia that she reports began when she started PAP therapy for moderate FINA. She struggles with sleep maintenance insomnia, especially terminal insomnia. She spends a significant amt of time in bed watching TV. --Patient is compliant with PAP therapy and reports subjective benefits from treatment --We reviewed PAP compliance report; AHI is normalized - Continue CPAP at 7 cmH2O. - Remember to clean your mask and equipment regularly, as directed. - You should be eligible for new supplies approximately every 3-6 months, depending on your insurance coverage. Contact your [employer] (DME) company for new supplies as needed. Discussed hyperarousal state and underlying causes of insomnia. Recommend she not spend any time in bed watching TV; need to retrain the brain to understand that bed=sleep. Start Belsomra 10 mg for medical treatment of insomnia. If too expensive then we will try trazodone 100 mg (50 mg wasn't effective) Follow up in 2 months in the office. Recommend scheduling this appointment now to ensure the best time for you. Rut Gama APRN.TRACTOR OPERATOR I spent a total of 58 minutes on the date of the service which included preparing to see the patient, [id number] patient care, completing clinical documentation, obtaining and/or reviewing separately obtained history, performing a medically appropriate examination, counseling and educating the patient/family/caregiver, and ordering medications, tests, or procedures. documented in this encounter [facility] 01-13-2025 Note HNO ID: [id number] Author: JOSUE ROSA LPN Service: ? Author Type: LICENSED NURSE Type: Progress Notes Filed: 01/13/2025 12:48 Note Text: EMG orders sent to [facility] along with OV AND demographics. Josue Rosa LPN January 13, 2025 12:48 PM [facility] 01-13-2025 History of Presen t illness Narrative EMG orders sent to [facility] along with OV & demographics. Josue Rosa LPN January 13, 2025 12:48 PM Images from the original note were not included. [facility] Name: Aimee Cancino Age: [age] year old Gender: female Primary Care Provider: No primary care provider on file. Assessment/Plan: 01/13/2025 - General Neurology, Carlene Vasquez PA-C ASSESSMENT ASSESSMENT/PLAN: 1. Coordination abnormal - ICD9: 781.3, ICD10: R27.8 (primary diagnosis) 2. Balance problem - ICD9: 781.99, ICD10: R26.89 3. Recurrent falls - ICD9: V15.88, ICD10: R29.6 4. Neuropathy - ICD9: 355.9, ICD10: G62.9 Patient without any falls since last appointment, last fall was in July but she still endorses daily episodes of balance issues. Notes this worsens the longer she is sitting, her feet will become aching and painful bilaterally. Notes in July she did injure her left hip, x-ray was obtained after last appointment which did show some mild degenerative changes, follow with primary care for this. On exam she does have sensory deficits primarily in the left lower extremity with poor proprioception throughout lower extremities on Romberg testing. Does have a history of diabetes as well as heavy alcohol use for about 15 years, no longer. Discussed neuropathy versus lumbar radiculopathy, patient agreeable to obtain an EMG study for further evaluation. MRI of the brain and MRA of the brain without any signs of stroke, NPH, or other intracranial abnormality contributing to balance issues. Discussed conservative measures at this time and continue to follow with primary care for risk factor management. 5. Speech disturbance, unspecified type - ICD9: 784.59, ICD10: R47.9 Patient continues to have speech delay, no quieting of the voice. Notes has been ongoing since last summer, no intracranial etiology for this. Unclear etiology, there was some discussion of parkinsonism at last appointment but balance issues could also be due to other abnormalities noted above. Discussed speech therapy and patient would like to think about this. Patient also mentions some decreased vision in her left eye, again no intracranial etiology for vision abnormalities on the brain MRI. Discussed follow with her eye doctor, patient agrees and understands. Patient agreeable to treatment plan of care at this time, questions were answered. Patient to follow-up in [address] Jang. Carlene Vasquez PA-C Encounter Diagnosis ICD-10-CM 1. Coordination abnormal R27.8 2. Balance problem R26.89 3. Recurrent falls R29.6 4. Neuropathy G62.9 EMG(NEURO/NI) VITAMIN B12 PROT ELECT SERUM WITH BELEM AND INTERP METHYLMALONIC ACID VITAMIN B6/PYRIDOXIN 5. Speech disturbance, unspecified type R47.9 Return in about 3 months (around 04/15/2025). Chart, labs,and relevant images reviewed. Chief Complaint:Patient presents with: Follow Up Chart Review: 12/04/[address] Jang ASSESSMENT/PLAN: 1. Speech disturbance, unspecified type - ICD9: 784.59, ICD10: R47.9 (primary diagnosis) 2. Coordination abnormal - ICD9: 781.3, ICD10: R27.8 3. Balance problem - ICD9: 781.99, ICD10: R26.89 4. Recurrent falls - ICD9: V15.88, ICD10: R29.6 5. History of diabetes mellitus - ICD9: V12.29, ICD10: Z86.39 6. History of hyperlipidemia - ICD9: V12.29, ICD10: Z86.39 Patient with multiple complaints as above, of which etiology is uncertain. Appears were of acute onset and perhaps progressed since Summer 2023. Etiology uncertain but primary concern at this time is for possible cerebrovascular event given patient with multiple untreated risk factors including DM, HTN and HLD. Uncertain if symptoms perhaps worse in past, with patient now being evaluated almost 9 months out from onset (did not seek immediate medical assist). Also in ddx would be possible Parkinsonism given masked facies (decreased blink rate) and decreased RUE swing when ambulating, but no other s/s nor would I expect Parkinsonism to result in acute change in speech. Will initiate workup with MRI of brain along with MRA brain and carotids to evaluate for stroke or other intracranial source of symptoms as well as for large vessel disease also possibly contributing to symptoms. Depending on results, will determine additional workup at time of follow up. Given stroke risk factors will start on ASA 81mg daily with pt not reporting contraindications. Will get lipid panel with pt already fasting this AM. Also will check CBC, CMP and A1c. BP elevated and pt informed - goal <140/90 with glucose goal <140. Advised pt to see PCP immediately. Again not taking meds. 7. Pain in left hip - ICD9: 719.45, ICD10: M25.552 Secondary to trauma in associated with reported falls. No impaired mobility or strength on exam. - XR HIP GENERAL 3V PELV/AP/LAT LEFT 8. Insomnia, unspecified type - ICD9: 780.52, ICD10: G47.00 9. Obstructive sleep apnea (adult) (pediatric) - ICD9: 327.23, ICD10: G47.33 - CONSULT TO NEUROLOGY (Sleep Medicine) Chauncey Jang MD HPI: Last saw Dr. Jang on 12/04/24 for frequent falls and many other concerns. Onset summer 2023. Ordered MRI brain and MRA head and neck. Discussed stroke risk factors. MRI without any acute findings. MRA with mild stenosis. Patient presents for follow-up appointment and to review imaging. Patient had onset of halted speech and balance issues since last summer. Had 2 falls in March and 1 in July, no falls since. Notes that if she sits for prolonged periods of time she has burning and aching in her feet, but no paresthesias. Notes that with this she will have some shuffling gait if she sits for too long. Notes history of prediabetes for years and had a 15-year history of heavy alcohol use. Not currently taking any supplements, no history of neuropathy in the feet. In terms of speech, no change since last appointment, still has difficulty getting her words out and feels very frustrating. No issues with memory, short-term memory long-term memory. No forgetfulness, no forgetting names or confusion. Patient also notes that since her last appointment her vision has worsened. Notes that it is mostly her distal left thigh. Has difficulty seeing things far away, has not seen her eye doctor in some time. No double vision, loss of vision or other vision changes. Notes that she did reestablish with her primary care since last appointment and restarted her medications, was off them for about a year and a half. Review of Systems ACTIVE PROBLEM LIST Summary Orbital cellulitis and preseptal cellulitis Dvt Prophylaxis Htn (Hypertension) Diabetes Mellitus (Hcc) Colon Cancer Screening Anxiety Ddd (Degenerative Disc Disease), Cervical Fina (Obstructive Sleep Apnea) Obesity PAST MEDICAL HISTORY Diagnosis Date Actinomycosis 2012 Anxiety DDD (degenerative disc disease), cervical severe C5-C6 DDD (degenerative disc disease), thoracic mild Diabetes (HCC) type 2 HTN (hypertension) Obesity FINA (obstructive sleep apnea) on CPAP [address] Rosa pulmonology PVC (premature ventricular contraction) Vertigo Medications: Reviewed atorvastatin (LIPITOR) 20 mg tablet Take 1 tablet by mouth daily at bedtime. For cholesterol. metoprolol succinate ER (TOPROL XL) 25 mg 24 hr tablet Take 1 tablet by mouth once daily. sertraline (ZOLOFT) 50 mg tablet Take 1 tablet by mouth once daily. metFORMIN ER (GLUCOPHAGE XR) 500 mg 24 hr tablet Take 1 tablet by mouth daily with breakfast. lisinopril (ZESTRIL, PRINIVIL) 20 mg tablet Take 0.5 tablets by mouth once daily. CPAP Initiate CPAP @ 7 cm of water with humidification. Mask (per patient preference) optional chin strap (if indicated) , filters, tubing, humidifier and lifetime supplies. blood sugar diagnostic (ACCU-CHEK ALEJANDRA) test strip Test blood sugar(s) 3 times daily. Dx: Type 2 DM - Controlled E11.9 Insulin: Yes Accucheck smartview test strips ALLERGIES No Known Allergies FAMILY HISTORY Problem Relation Age of Onset Alzheimer's Disease Mother Diabetes Mother other (ALS) Father Diabetes Sister Diabetes Sister PAST SURGICAL HISTORY Procedure Laterality Date COLONOSCOPY FLX DX W/COLLJ SPEC WHEN PFRMD 07/16/2017 tubular adenoma-repeat in 5 years FRACTURE NASAL TURBINATE(S), THERAPEUTIC 09/07/13 Right NASAL/SINUS ENDOSCOPY W/MAXILLARY ANTROSTOMY 09/07/13 Right NASAL/SINUS NDSC SURG MEDIAL&INF ORB WALL DCMPRN 09/07/13 Right NASAL/SINUS NDSC SURG W/DACRYOCSTORHINOSTOMY 09/07/13 Right NASAL/SINUS NDSC W/TOTAL ETHOIDECTOMY 09/07/13 Right SCREENING COLONSCOPY NOT HIGH RISK 1990s, normal STRTCTC CPTR ASSTD PX EXTRADURAL CRANIAL 09/07/13 TONSILLECTOMY HX Social Hx: @Alcohol Use: Not At Risk (05/17/2020) AUDIT-C Frequency of Alcohol Consumption: Never Average Number of Drinks: Not on file Frequency of Binge Drinking: Not on file Tobacco Use: Medium Risk (01/13/2025) Patient History Smoking Tobacco Use: Former Smokeless Tobacco Use: Never Passive Exposure: Not on file 01/13/25 0819 BP: 112/74 Pulse: 64 Neurologic Exam Cognitive and Language: Alert and answered questions appropriately. Language was fluent. Cranial Nerves: Extraocular movements were full with no diplopia or nystagmus. Facial strength was symmetric. Motor: Full strength throughout upper and lower extremities Sensory: Absent sensation to vibration throughout the left lower extremity, but present in the left upper extremity. Decree sensation to temperature in the left leg compared to the right leg and upper extremities. Poor proprioception on Romberg testing Coordination: Normal finger to nose and heel to chavez testing bilaterally. Antalgic gait, having left hip pain Labs: Lab Results Component Value Date WBC 5.04 12/04/2024 HCT 44.3 12/04/2024 MCV 85.4 12/04/2024 PLT 147 (L) 12/04/2024 Lab Results Component Value Date HBA1C 6.8 12/04/2024 HBA1C 6.2 04/20/2023 HBA1C 6.2 09/07/2021 HBA1C 6.2 12/26/2020 HBA1C 6.0 05/19/2020 Cholesterol, Total Date Value Ref Range Status 12/04/2024 236 (H) <200 mg/dL Final Comment: <200 mg/dL, Desirable 200-239 mg/dL, Borderline high >239 mg/dL, High HDL Cholesterol Date Value Ref Range Status 12/04/2024 79 >39 mg/dL Final Comment: 40-59 mg/dL, Acceptable >59 mg/dL, High: Negative risk factor for coronary heart disease <40 mg/dL, Low: Positive risk factor for coronary heart disease LDL Cholesterol Date Value Ref Range Status 12/04/2024 139 (H) <100 mg/dL Final Comment: <100 mg/dL, Optimal 100-129 mg/dL, Near optimal/above optimal 130-159 mg/dL, Borderline high 160-189 mg/dL, High >189 mg/dL, Very high Secondary prevention optimal LDL Cholesterol levels are recommended to be < 70 mg/dL Triglyceride Date Value Ref Range Status 12/04/2024 90 <150 mg/dL Final Comment: <150 mg/dL, Normal 150-199 mg/dL, Borderline high 200-499 mg/dL, High >499 mg/dL, Very high Results for orders placed or performed in visit on 12/04/24 COMPREHENSIVE METABOLIC PANEL Result Value Ref Range Protein, Total 7.8 6.3 - 8.0 g/dL Albumin 4.8 3.9 - 4.9 g/dL Calcium, Total 10.3 (H) 8.5 - 10.2 mg/dL Bilirubin, Total 0.4 0.2 - 1.3 mg/dL Alkaline Phosphatase 87 34 - 123 U/L AST 22 13 - 35 U/L ALT 22 7 - 38 U/L Glucose 144 (H) 74 - 99 mg/dL BUN 29 (H) 7 - 21 mg/dL Creatinine 0.75 0.58 - 0.96 mg/dL Sodium 139 136 - 144 mmol/L Potassium 3.9 3.7 - 5.1 mmol/L Chloride 104 98 - 107 mmol/L CO2 22 22 - 30 mmol/L Anion Gap 13 8 - 15 mmol/L Estimated Glomerular Filtration Rate 82 >=60 mL/min/1.73m COMPLETE BLOOD COUNT AND DIFFERENTIAL Result Value Ref Range WBC 5.04 3.70 - 11.00 k/uL RBC 5.19 3.90 - 5.20 m/uL Hemoglobin 15.1 11.5 - 15.5 g/dL Hematocrit 44.3 36.0 - 46.0 % MCV 85.4 80.0 - 100.0 fL MCH 29.1 26.0 - 34.0 pg MCHC 34.1 30.5 - 36.0 g/dL RDW-CV 13.8 11.5 - 15.0 % Platelet Count 147 (L) 150 - 400 k/uL MPV 11.1 9.0 - 12.7 fL Neutrophils % 43.2 % Abs Neut 2.18 1.45 - 7.50 k/uL Lymphocytes % 42.5 % Abs Lymph 2.14 1.00 - 4.00 k/uL Monocytes % 11.1 % Abs [place] 0.56 <0.87 k/uL Eosinophils % 2.6 % Abs Eosin 0.13 <0.46 k/uL Basophils % 0.4 % Abs Baso <0.03 <0.11 k/uL Immature Granulocytes % 0.2 % Abs Immature Gran <0.03 <0.10 k/uL NRBC 0.0 /100 WBC Absolute nRBC <0.01 <0.01 k/uL Diff Type Auto LIPID PANEL BASIC Result Value Ref Range Cholesterol, Total 236 (H) <200 mg/dL Triglyceride 90 <150 mg/dL HDL Cholesterol 79 >39 mg/dL Non HDL Cholesterol 157 (H) <130 mg/dL Fasting Time 14 hrs VLDL Cholesterol 18 <30 mg/dL TC:HDL Ratio 2.99 <5.10 LDL Cholesterol 139 (H) <100 mg/dL LDL:HDL Ratio 1.76 <2.54 HEMOGLOBIN A1C Result Value Ref Range Hemoglobin A1C 6.8 (H) 4.3 - 5.6 % Estimated Average Glucose 148 mg/dL Radiology: MRI Head/Brain - Last 2 Impressions MRI BRAIN WO IVCON Exam End: 12/14/2024 9:55 AM (Final result) Impression: IMPRESSION: No acute intracranial abnormality. No evidence of flow-limiting stenosis or occlusion involving the major ... , MRA Head and/or Neck - Last 2 Impressions MRA BRAIN WO IVCON Exam End: 12/14/2024 9:55 AM (Final result) Impression: IMPRESSION: No acute intracranial abnormality. No evidence of flow-limiting stenosis or occlusion involving the major arteries of the head and neck. Likely atherosclerotic plaque along the right greater than left carotid bifurcations with less than 25% stenosis of the proximal right ICA, however CTA could provide further evaluation if clinically warranted. File Keeper: PETER Transcribe Date/Time: Dec 14 2024 9:56A Dictated by : GLORIA YU MD This examination was interpreted and the report reviewed and electronically signed by: GLORIA YU MD on Dec 14 2024 10:02AM EST , and MRI Spine - Last 2 Impressions No resulted procedures found. This note was dictated using [employer] speech recognition software and may contain some errors that were a result of the program not accurately transcribing what was dictated, despite efforts to make corrections. Note that unless urgent, test and MRI results will be discussed at next follow-up visit. PROMIS (Patient-Reported Outcomes Measurement Information System) is a set of person-centered measures that evaluates and monitors physical, social, and emotional health. It can be used with the general population and with individuals living with chronic conditions. PROMIS 10: PHYSICAL AND MENTAL HEALTH: 08/26/2021 PHQ-9 PHQ-2 Score 0 0 Medical Decision Making: Medical Decision Making Level: 1 - N/A I spent a total of 40 minutes on the date of the service which included preparing to see the patient, [id number] patient care, completing clinical documentation, obtaining and/or reviewing separately obtained history, performing a medically appropriate examination, counseling and educating the patient/family/caregiver, and ordering medications, tests, or procedures. documented in this encounter [facility] 01-13-2025 Instructions Carlene Vasquez PA-C - 01/13/2025 8:58 AM EDT EMG of the left leg to look for neuropathy vs pinched nerve in the back Laboratory studies Think about speech therapy Follow up with primary care about hip pain and consult to orthopedics Follow up in three months with Dr. Jang documented in this encounter [facility] 01-13-2025 Note HNO ID: [id number] Author: CARLENE VASQUEZ PA-C Service: ? Author Type: Physician Oxygen Tank Filler Type: Progress Notes Filed: 01/13/2025 10:05 Note Text: [facility] Name: Aimee Cancino Age: [age] year old Gender: female Primary Care Provider: No primary care provider on file. Assessment/Plan: 01/13/2025 - General NeurologyCarlene PA-C ASSESSMENT ASSESSMENT/PLAN: 1. Coordination abnormal - ICD9: 781.3, ICD10: R27.8 (primary diagnosis) 2. Balance problem - ICD9: 781.99, ICD10: R26.89 3. Recurrent falls - ICD9: V15.88, ICD10: R29.6 4. Neuropathy - ICD9: 355.9, ICD10: G62.9 Patient without any falls since last appointment, last fall was in July but she still endorses daily episodes of balance issues. Notes this worsens the longer she is sitting, her feet will become aching and painful bilaterally. Notes in July she did injure her left hip, x-ray was obtained after last appointment which did show some mild degenerative changes, follow with primary care for this. On exam she does have sensory deficits primarily in the left lower extremity with poor proprioception throughout lower extremities on Romberg testing. Does have a history of diabetes as well as heavy alcohol use for about 15 years, no longer. Discussed neuropathy versus lumbar radiculopathy, patient agreeable to obtain an EMG study for further evaluation. MRI of the brain and MRA of the brain without any signs of stroke, NPH, or other intracranial abnormality contributing to balance issues. Discussed conservative measures at this time and continue to follow with primary care for risk factor management. 5. Speech disturbance, unspecified type - ICD9: 784.59, ICD10: R47.9 Patient continues to have speech delay, no quieting of the voice. Notes has been ongoing since last summer, no intracranial etiology for this. Unclear etiology, there was some discussion of parkinsonism at last appointment but balance issues could also be due to other abnormalities noted above. Discussed speech therapy and patient would like to think about this. Patient also mentions some decreased vision in her left eye, again no intracranial etiology for vision abnormalities on the brain MRI. Discussed follow with her eye doctor, patient agrees and understands. Patient agreeable to treatment plan of care at this time, questions were answered. Patient to follow-up in [address] Jang. Carlene Vasquez PA-C Encounter Diagnosis ICD-10-CM 1. Coordination abnormal R27.8 2. Balance problem R26.89 3. Recurrent falls R29.6 4. Neuropathy G62.9 EMG(NEURO/NI) VITAMIN B12 PROT ELECT SERUM WITH BELEM AND INTERP METHYLMALONIC ACID VITAMIN B6/PYRIDOXIN 5. Speech disturbance, unspecified type R47.9 Return in about 3 months (around 04/15/2025). Chart, labs,and relevant images reviewed. Chief Complaint:Patient presents with: Follow Up Chart Review: 12/04/[address] Jang ASSESSMENT/PLAN: 1. Speech disturbance, unspecified type - ICD9: 784.59, ICD10: R47.9 (primary diagnosis) 2. Coordination abnormal - ICD9: 781.3, ICD10: R27.8 3. Balance problem - ICD9: 781.99, ICD10: R26.89 4. Recurrent falls - ICD9: V15.88, ICD10: R29.6 5. History of diabetes mellitus - ICD9: V12.29, ICD10: Z86.39 6. History of hyperlipidemia - ICD9: V12.29, ICD10: Z86.39 Patient with multiple complaints as above, of which etiology is uncertain. Appears were of acute onset and perhaps progressed since Summer 2023. Etiology uncertain but primary concern at this time is for possible cerebrovascular event given patient with multiple untreated risk factors including DM, HTN and HLD. Uncertain if symptoms perhaps worse in past, with patient now being evaluated almost 9 months out from onset (did not seek immediate medical assist). Also in ddx would be possible Parkinsonism given masked facies (decreased blink rate) and decreased RUE swing when ambulating, but no other s/s nor would I expect Parkinsonism to result in acute change in speech. Will initiate workup with MRI of brain along with MRA brain and carotids to evaluate for stroke or other intracranial source of symptoms as well as for large vessel disease also possibly contributing to symptoms. Depending on results, will determine additional workup at time of follow up. Given stroke risk factors will start on ASA 81mg daily with pt not reporting contraindications. Will get lipid panel with pt already fasting this AM. Also will check CBC, CMP and A1c. BP elevated and pt informed - goal <140/90 with glucose goal <140. Advised pt to see PCP immediately. Again not taking meds. 7. Pain in left hip - ICD9: 719.45, ICD10: M25.552 Secondary to trauma in associated with reported falls. No impaired mobility or strength on exam. - XR HIP GENERAL 3V PELV/AP/LAT LEFT 8. Insomnia, unspecified type - ICD9: 780.52, ICD10: G47.00 9. Obstructive sleep apnea (adult) (pediatric) - I (more content not included)... [facility] 12-14-2024 History of Presen t illness Narrative Radiology Service Progress Note PATIENT NAME: Aimee Cancino DATE OF SERVICE: December 14, 2024 TIME: 9:24 AM PATIENT IDENTITY VERIFICATION COMPLETED USING TWO (2) IDENTIFIERS: Name and Date of confirmed by patient verbally. FALL SCREENING: Has the patient had 2 falls in the last year or 1 fall with injury or currently using an Ambulatory Assistive Device (Walker, Cane, Wheelchair, Crutches, etc.)? No PATIENT GENDER DATA: Assigned female at . status: : No status: NO. PATIENT RELEVANT IMPLANT DATA REVIEWED: Yes PATIENT PRESENTS WITH AN IMPLANTABLE OR ATTACHED PACKING ROOM SUPERVISOR: No RADIOLOGY DEPARTMENT: MR; Exam(s) Completed: Head: Routine Brain [place] MRA Neck: Carotids MRA, bilateral PERIPHERAL IV DATA: Not applicable SIGNED BY: RT May(R) December 14, 2024 9:24 AM documented in this encounter [facility] 12-14-2024 Note HNO ID: [id number] Author: ELSIE DELGADO RT (R) Service: ? Author Type: Technologist Type: Progress Notes Filed: 12/14/2024 09:27 Note Text: Radiology Service Progress Note PATIENT NAME: Aimee Cancino DATE OF SERVICE: December 14, 2024 TIME: 9:24 AM PATIENT IDENTITY VERIFICATION COMPLETED USING TWO (2) IDENTIFIERS: Name and Date of confirmed by patient verbally. FALL SCREENING: Has the patient had 2 falls in the last year or 1 fall with injury or currently using an Ambulatory Assistive Device (Walker, Cane, Wheelchair, Crutches, etc.)? No PATIENT GENDER DATA: Assigned female at . status: : No status: NO. PATIENT RELEVANT IMPLANT DATA REVIEWED: Yes PATIENT PRESENTS WITH AN IMPLANTABLE OR ATTACHED PACKING ROOM SUPERVISOR: No RADIOLOGY DEPARTMENT: MR; Exam(s) Completed: Head: Routine Brain [place] MRA Neck: Carotids MRA, bilateral PERIPHERAL IV DATA: Not applicable SIGNED BY: RT May(R) December 14, 2024 9:24 AM [facility] 12-04-2024 History of Presen t illness Narrative Radiology Service Progress Note PATIENT NAME: Aimee Cancino DATE OF SERVICE: December 04, 2024 TIME: 9:16 AM PATIENT IDENTITY VERIFICATION COMPLETED USING TWO (2) IDENTIFIERS: Name and Date of confirmed by patient verbally. FALL SCREENING: Has the patient had 2 falls in the last year or 1 fall with injury or currently using an Ambulatory Assistive Device (Walker, Cane, Wheelchair, Crutches, etc.)? No PATIENT GENDER DATA: Assigned female at . status: : No status: NO. PATIENT RELEVANT IMPLANT DATA REVIEWED: Yes PATIENT PRESENTS WITH AN IMPLANTABLE OR ATTACHED PACKING ROOM SUPERVISOR: No RADIOLOGY DEPARTMENT: General X-ray: Exam(s) Completed: Pelvis X-Ray: Pelvis with Hip Left PERIPHERAL IV DATA: Not applicable SIGNED BY: RT Kiki(R) December 04, 2024 9:16 AM documented in this encounter [facility] 12-04-2024 Note HNO ID: [id number] Author: AUGUSTIN ROSENTHAL RT(R) Service: ? Author Type: Marketing Strategy Analyst Type: Progress Notes Filed: 12/04/2024 09:32 Note Text: Radiology Service Progress Note PATIENT NAME: Aimee Cancino DATE OF SERVICE: December 04, 2024 TIME: 9:16 AM PATIENT IDENTITY VERIFICATION COMPLETED USING TWO (2) IDENTIFIERS: Name and Date of confirmed by patient verbally. FALL SCREENING: Has the patient had 2 falls in the last year or 1 fall with injury or currently using an Ambulatory Assistive Device (Walker, Cane, Wheelchair, Crutches, etc.)? No PATIENT GENDER DATA: Assigned female at . status: : No status: NO. PATIENT RELEVANT IMPLANT DATA REVIEWED: Yes PATIENT PRESENTS WITH AN IMPLANTABLE OR ATTACHED PACKING ROOM SUPERVISOR: No RADIOLOGY DEPARTMENT: General X-ray: Exam(s) Completed: Pelvis X-Ray: Pelvis with Hip Left PERIPHERAL IV DATA: Not applicable SIGNED BY: RT Kiki(R) December 04, 2024 9:16 AM [facility] 12-04-2024 Note HNO ID: [id number] Author: CHAUNCEY JANG JR, MD Service: ? Author Type: Physician Type: Progress Notes Filed: 12/04/2024 09:03 Note Text: NEW PATIENT (CONSULT) HISTORY AND PHYSICAL EXAM PRIMARY CARE PHYSICIAN: Jose F Zamora MD REASON FOR CONSULT: Multiple symptoms REFERRING PHYSICIAN: No ref. provider found CHIEF COMPLAINT: See below HISTORY OF PRESENT ILLNESS: Aimee Cancino is a 79 year old female, BMI 34.44 kg/m2 with a PMH significant for that below. Note that she is not on the meds listed as patient stated that she "wanted to go holistic". Review of prior imaging shows carotid ultrasounds in 2019 that per report showed no significant stenosis (<30%) manish. Patient brings in pages of symptoms - in summary reports halting speech, balance off, change in handwriting. States symptoms started in March of 2024. She reports she thought it was due to two COVID shots she had, but at Thanksgiving friend states she has been struggling for words. She sought not medical attention for this and did not report symptoms to her PCP. She reports that symptoms have been on coming for a long time - when asked to be more specific, pt states thinks she had a problem with speech in March and it is becoming progressively worse. She wonders if she had TIAs along the line. She is not on ASA or other antiplt med. She reports glucose at home is <150 (checking once per day). BP has been high stating it goes as high as 145. When I explained that BP elevated today, pt states due to white coat syndrome. She denies history of HLD. Family history of Alzhemier's in mother and ALS in father. Patient reports no cognitive issues. Then indicates that she "knows what she wants to say but comes out garbled". When asked about balance issues, states there all the time, including falling in garden in March and falling over a vacuum in - limited details. Patient is also having pain in the L hip from when she fell - never had imaging. Pain not radiating into the groin region. States when she fell in July she hit her head - no proceeding headaches. No visual changes. No vertigo. No issues driving. Pt states handwriting changed, but provides sample and appears clear without micro graphia. Then states takes longer to write. No issues with reading books. No hand deficits. Cholesterol, Total Date Value Ref Range Status 04/20/2023 194 <200 mg/dL Final Comment: <200 mg/dL, Desirable 200-239 mg/dL, Borderline high >239 mg/dL, High HDL Cholesterol Date Value Ref Range Status 04/20/2023 67 >39 mg/dL Final Comment: 40-59 mg/dL, Acceptable >59 mg/dL, High: Negative risk factor for coronary heart disease <40 mg/dL, Low: Positive risk factor for coronary heart disease LDL Cholesterol Date Value Ref Range Status 04/20/2023 111 (H) <100 mg/dL Final Comment: <100 mg/dL, Optimal 100-129 mg/dL, Near optimal/above optimal 130-159 mg/dL, Borderline high 160-189 mg/dL, High >189 mg/dL, Very high Secondary prevention optimal LDL Cholesterol levels are recommended to be < 70 mg/dL Triglyceride Date Value Ref Range Status 04/20/2023 79 <150 mg/dL Final Comment: <150 mg/dL, Normal 150-199 mg/dL, Borderline high 200-499 mg/dL, High >499 mg/dL, Very high Hemoglobin A1C (%) Date Value 04/20/2023 6.2 09/07/2021 6.2 REVIEW OF SYSTEMS GENERAL:No weight loss, malaise or fevers. HEENT:Negative for frequent or significant headaches, No changes in hearing or vision, no nose bleeds or other nasal problems NECK:Negative for lumps, goiter, pain and significant neck swelling RESPIRATORY: Negative for cough, wheezing or shortness of breath. CARDIOVASCULAR: Negative for chest pain, leg swelling or palpitations. GASTROINTESTINAL: Negative for abdominal discomfort, blood in stools or black stools or change in bowel habits GENITOURINARY: No history of dysuria, frequency or incontinence MUSCULOSKELETAL: See HPI. NEUROLOGIC:See HPI. SKIN:Negative for lesions, rash, and itching. HEMATOLOGIC/LYMPHATIC/IMMUNOLOGI C:Negative for prolonged bleeding, bruising easily or swollen nodes. ENDOCRINE: Negative for cold or heat intolerance, polyuria, polydipsia and goiter. The remainder of the ROS was reviewed and is negative. LAB/IMAGING: Reviewed and include: WBC (k/uL) Date Value 06/27/2017 4.33 RBC (m/uL) Date Value 06/27/2017 4.62 Hemoglobin (g/dL) Date Value 06/27/2017 13.6 Hematocrit (%) Date Value 06/27/2017 43.6 MCV (fL) Date Value 06/27/2017 94.4 MCH (pG) Date Value 06/27/2017 29.4 MCHC (g/dL) Date Value 06/27/2017 31.2 RDW-CV (%) Date Value 06/27/2017 14.0 Platelet Count (k/uL) Date Value 06/27/2017 189 MPV (fL) Date Value 06/27/2017 10.8 Glucose (mg/dL) Date Value 04/20/2023 111 (H) BUN (mg/dL) Date Value 04/20/2023 12 Creatinine (mg/dL) Date Value 04/20/2023 0.73 Sodium (mmol/L) Date Value 04/20/2023 136 Potassium (more content not included)... [facility] 12-04-2024 History of Presen t illness Narrative NEW PATIENT (CONSULT) HISTORY AND PHYSICAL EXAM PRIMARY CARE PHYSICIAN: Jose F Zamora MD REASON FOR CONSULT: Multiple symptoms REFERRING PHYSICIAN: No ref. provider found CHIEF COMPLAINT: See below HISTORY OF PRESENT ILLNESS: Aimee Cancino is a 79 year old female, BMI 34.44 kg/m2 with a PMH significant for that below. Note that she is not on the meds listed as patient stated that she "wanted to go holistic". Review of prior imaging shows carotid ultrasounds in 2019 that per report showed no significant stenosis (<30%) manish. Patient brings in pages of symptoms - in summary reports halting speech, balance off, change in handwriting. States symptoms started in March of 2024. She reports she thought it was due to two COVID shots she had, but at Thanksgiving friend states she has been struggling for words. She sought not medical attention for this and did not report symptoms to her PCP. She reports that symptoms have been on coming for a long time - when asked to be more specific, pt states thinks she had a problem with speech in March and it is becoming progressively worse. She wonders if she had TIAs along the line. She is not on ASA or other antiplt med. She reports glucose at home is <150 (checking once per day). BP has been high stating it goes as high as 145. When I explained that BP elevated today, pt states due to white coat syndrome. She denies history of HLD. Family history of Alzhemier's in mother and ALS in father. Patient reports no cognitive issues. Then indicates that she "knows what she wants to say but comes out garbled". When asked about balance issues, states there all the time, including falling in garden in March and falling over a vacuum in [place] - limited details. Patient is also having pain in the L hip from when she fell - never had imaging. Pain not radiating into the groin region. States when she fell in July she hit her head - no proceeding headaches. No visual changes. No vertigo. No issues driving. Pt states handwriting changed, but provides sample and appears clear without micro graphia. Then states takes longer to write. No issues with reading books. No hand deficits. Cholesterol, Total Date Value Ref Range Status 04/20/2023 194 <200 mg/dL Final Comment: <200 mg/dL, Desirable 200-239 mg/dL, Borderline high >239 mg/dL, High HDL Cholesterol Date Value Ref Range Status 04/20/2023 67 >39 mg/dL Final Comment: 40-59 mg/dL, Acceptable >59 mg/dL, High: Negative risk factor for coronary heart disease <40 mg/dL, Low: Positive risk factor for coronary heart disease LDL Cholesterol Date Value Ref Range Status 04/20/2023 111 (H) <100 mg/dL Final Comment: <100 mg/dL, Optimal 100-129 mg/dL, Near optimal/above optimal 130-159 mg/dL, Borderline high 160-189 mg/dL, High >189 mg/dL, Very high Secondary prevention optimal LDL Cholesterol levels are recommended to be < 70 mg/dL Triglyceride Date Value Ref Range Status 04/20/2023 79 <150 mg/dL Final Comment: <150 mg/dL, Normal 150-199 mg/dL, Borderline high 200-499 mg/dL, High >499 mg/dL, Very high Hemoglobin A1C (%) Date Value 04/20/2023 6.2 09/07/2021 6.2 REVIEW OF SYSTEMS GENERAL:No weight loss, malaise or fevers. HEENT:Negative for frequent or significant headaches, No changes in hearing or vision, no nose bleeds or other nasal problems NECK:Negative for lumps, goiter, pain and significant neck swelling RESPIRATORY: Negative for cough, wheezing or shortness of breath. CARDIOVASCULAR: Negative for chest pain, leg swelling or palpitations. GASTROINTESTINAL: Negative for abdominal discomfort, blood in stools or black stools or change in bowel habits GENITOURINARY: No history of dysuria, frequency or incontinence MUSCULOSKELETAL: See HPI. NEUROLOGIC:See HPI. SKIN:Negative for lesions, rash, and itching. HEMATOLOGIC/LYMPHATIC/IMMUNOLOGI C:Negative for prolonged bleeding, bruising easily or swollen nodes. ENDOCRINE: Negative for cold or heat intolerance, polyuria, polydipsia and goiter. The remainder of the ROS was reviewed and is negative. LAB/IMAGING: Reviewed and include: WBC (k/uL) Date Value 06/27/2017 4.33 RBC (m/uL) Date Value 06/27/2017 4.62 Hemoglobin (g/dL) Date Value 06/27/2017 13.6 Hematocrit (%) Date Value 06/27/2017 43.6 MCV (fL) Date Value 06/27/2017 94.4 MCH (pG) Date Value 06/27/2017 29.4 MCHC (g/dL) Date Value 06/27/2017 31.2 RDW-CV (%) Date Value 06/27/2017 14.0 Platelet Count (k/uL) Date Value 06/27/2017 189 MPV (fL) Date Value 06/27/2017 10.8 Glucose (mg/dL) Date Value 04/20/2023 111 (H) BUN (mg/dL) Date Value 04/20/2023 12 Creatinine (mg/dL) Date Value 04/20/2023 0.73 Sodium (mmol/L) Date Value 04/20/2023 136 Potassium (mmol/L) Date Value 04/20/2023 4.3 Chloride (mmol/L) Date Value 04/20/2023 100 CO2 (mmol/L) Date Value 04/20/2023 23 Protein, Total (g/dL) Date Value 04/20/2023 7.3 Albumin (g/dL) Date Value 04/20/2023 4.9 Calcium, Total (mg/dL) Date Value 04/20/2023 10.4 (H) Alkaline Phosphatase (U/L) Date Value 04/20/2023 62 Bilirubin, Total (mg/dL) Date Value 04/20/2023 0.3 AST (U/L) Date Value 04/20/2023 20 ALT (U/L) Date Value 04/20/2023 16 Hep C Antibody IA (no units) Date Value 01/01/2018 Negative MEDICATIONS: atorvastatin (LIPITOR) 20 mg tablet Take 1 tablet by mouth daily at bedtime. For cholesterol. (Patient not taking: Reported on 12/04/2024) metoprolol succinate ER (TOPROL XL) 25 mg 24 hr tablet Take 1 tablet by mouth once daily. (Patient not taking: Reported on 12/04/2024) sertraline (ZOLOFT) 50 mg tablet Take 1 tablet by mouth once daily. (Patient not taking: Reported on 12/04/2024) metFORMIN ER (GLUCOPHAGE XR) 500 mg 24 hr tablet Take 1 tablet by mouth daily with breakfast. (Patient not taking: Reported on 12/04/2024) lisinopril (ZESTRIL, PRINIVIL) 20 mg tablet Take 0.5 tablets by mouth once daily. (Patient not taking: Reported on 12/04/2024) CPAP Initiate CPAP @ 7 cm of water with humidification. Mask (per patient preference) optional chin strap (if indicated) , filters, tubing, humidifier and lifetime supplies. blood sugar diagnostic (ACCU-CHEK ALEJANDRA) test strip Test blood sugar(s) 3 times daily. Dx: Type 2 DM - Controlled E11.9 Insulin: Yes Accucheck smartview test strips (Patient not taking: Reported on 12/04/2024) HISTORIES PAST MEDICAL HISTORY Diagnosis Date Actinomycosis 2012 Anxiety DDD (degenerative disc disease), cervical severe C5-C6 DDD (degenerative disc disease), thoracic mild Diabetes (HCC) type 2 HTN (hypertension) Obesity FINA (obstructive sleep apnea) on CPAP [address] Rosa pulmonology PVC (premature ventricular contraction) Vertigo FAMILY HISTORY Problem Relation Age of Onset Alzheimer's Disease Mother Diabetes Mother other (ALS) Father Diabetes Sister Diabetes Sister SOCIAL HISTORY Social History Tobacco Use Smoking status: Former Current packs/day: 0.00 Average packs/day: 1 pack/day for 15.0 years (15.0 ttl pk-yrs) Types: Cigarettes Start date: 09/06/1965 Quit date: 09/06/1980 Years since quittin.2 Smokeless tobacco: Never Substance Use Topics Alcohol use: No Drug use: No PHYSICAL EXAMINATION BP 172/90 (BP Position: Sitting, BP Cuff Size: Extra Large Adult) Pulse 86 Resp 18 Wt 88.2 kg (194 lb 6.4 oz) SpO2 98% BMI 34.44 kg/m GENERAL EXAM: General appearance: NAD, flat affect. HEENT: NC/AT, nasal congestion absent, no oral lesions, membranes moist. NECK: No masses, supple. Lungs: CTA bilaterally. No wheezes present. CV: RRR nl S1, S2, no murmurs. No carotid bruits. Abd: Soft, nontender, nondistended. Bowel sounds present. Extr: No cyanosis, clubbing or edema. No evidence of fasciculations. Extremity pulses palpable and normal. Skin: Cool to touch. No rash. NEUROLOGICAL EXAM: General: Awake, alert, oriented x3 (person,place,time), fluent, no dysarthria but monotonous; comprehension, naming, repetition intact. CN: PERRL, fundi with no evidence of papilledema, EOMI and without nystagmus, VFF to confrontation, facial sensation and strength are normal and symmetric, hearing is intact to finger rub bilaterally, palate and tongue movements are intact and symmetric. SCM and trapezius strength normal. Motor: Normal tone, bulk and strength (5/5) bilaterally (throughout extremities x4). Coordination: FNF with mild dysmetria in RUE, BRIANA, HTS intact. No tremors. Sensation: Light touch, vibration, temperature intact throughout. No evidence of neglect. Gait: No issues rising from a chair. Narrow based and stable with normal stride but decreased RUE swing. Romberg normal. Assessment and Plan: ASSESSMENT/PLAN: 1. Speech disturbance, unspecified type - ICD9: 784.59, ICD10: R47.9 (primary diagnosis) 2. Coordination abnormal - ICD9: 781.3, ICD10: R27.8 3. Balance problem - ICD9: 781.99, ICD10: R26.89 4. Recurrent falls - ICD9: V15.88, ICD10: R29.6 5. History of diabetes mellitus - ICD9: V12.29, ICD10: Z86.39 6. History of hyperlipidemia - ICD9: V12.29, ICD10: Z86.39 Patient with multiple complaints as above, of which etiology is uncertain. Appears were of acute onset and perhaps progressed since Summer 2023. Etiology uncertain but primary concern at this time is for possible cerebrovascular event given patient with multiple untreated risk factors including DM, HTN and HLD. Uncertain if symptoms perhaps worse in past, with patient now being evaluated almost 9 months out from onset (did not seek immediate medical assist). Also in ddx would be possible Parkinsonism given masked facies (decreased blink rate) and decreased RUE swing when ambulating, but no other s/s nor would I expect Parkinsonism to result in acute change in speech. Will initiate workup with MRI of brain along with MRA brain and carotids to evaluate for stroke or other intracranial source of symptoms as well as for large vessel disease also possibly contributing to symptoms. Depending on results, will determine additional workup at time of follow up. Given stroke risk factors will start on ASA 81mg daily with pt not reporting contraindications. Will get lipid panel with pt already fasting this AM. Also will check CBC, CMP and A1c. BP elevated and pt informed - goal <140/90 with glucose goal <140. Advised pt to see PCP immediately. Again not taking meds. 7. Pain in left hip - ICD9: 719.45, ICD10: M25.552 Secondary to trauma in associated with reported falls. No impaired mobility or strength on exam. - XR HIP GENERAL 3V PELV/AP/LAT LEFT 8. Insomnia, unspecified type - ICD9: 780.52, ICD10: G47.00 9. Obstructive sleep apnea (adult) (pediatric) - ICD9: 327.23, ICD10: G47.33 - CONSULT TO NEUROLOGY (Sleep Medicine) Chauncey Jang MD Medical Decision Making: Problems: Moderate: New problem with uncertain prognosis Data: Unique test result(s) reviewed: 2 Unique test(s) ordered: 3+ Medical Decision Making Level: 4 - Moderate documented in this encounter [facility] 12-03-2024 Telephone encounter Note Pt thinks she has had a stroke recently, speech changes, straining for words for 6 months (March), abnormal gait, tightness in her chest. Has not seen previous for any of these symptoms. Advised patient next time she believes she is having a stroke please visit ER immediately, patient verbalized understanding. Insomnia was diagnosis years ago, only taking OTC medications for this. Family Hx of ALS, mother had alzheimer. Not taking any medications prescribed to her due to personal decision to go homeopathic. No documentation to request for this visit. Josue Rosa LPN December 03, 2024 8:58 AM [facility] 12-03-2024 Miscellaneous Notes Pt thinks she has had a stroke recently, speech changes, straining for words for 6 months (March), abnormal gait, tightness in her chest. Has not seen previous for any of these symptoms. Advised patient next time she believes she is having a stroke please visit ER immediately, patient verbalized understanding. Insomnia was diagnosis years ago, only taking OTC medications for this. Family Hx of ALS, mother had alzheimer. Not taking any medications prescribed to her due to personal decision to go homeopathic. No documentation to request for this visit. Josue Rosa LPN December 03, 2024 8:58 AM documented in this encounter [facility] 12-01-2024 Note HNO ID: [id number] Author: NASRA IZQUIERDO MA Service: ? Author Type: Library Science Professor Type: Progress Notes Filed: 12/01/2024 11:17 Note Text: POPULATION HEALTH NAVIGATION OUTREACH Action/FYI msg to schedule wellness, hcc gap closure, bp to be addressed as not compliant not <130/80, hgba1c and ked/ uacr and bmp not pended as I didn't speak to the patient, influenza, diabetic retinal eye exam Reason for Outreach Care Gap/HCC or Scheduling Wellness Visits Care Gaps due: Medicare Annual Wellness Visit Controlling Blood Pressure Diabetic Eye Exam HBA1C KED Flu Vaccine Patient Contacted: Unable or unnecessary to reach patient: Left message [employer] message sent HCC related Navigation Signature: Nasra Izquierdo MA December 01, 2024 11:15 AM [facility] 12-01-2024 History of Presen t illness Narrative POPULATION HEALTH NAVIGATION OUTREACH Action/FYI msg to schedule wellness, hcc gap closure, bp to be addressed as not compliant not <130/80, hgba1c and ked/ uacr and bmp not pended as I didn't speak to the patient, influenza, diabetic retinal eye exam Reason for Outreach Care Gap/HCC or Scheduling Wellness Visits Care Gaps due: Medicare Annual Wellness Visit Controlling Blood Pressure Diabetic Eye Exam HBA1C KED Flu Vaccine Patient Contacted: Unable or unnecessary to reach patient: Left message VERTILAS message sent HCC related Navigation Signature: Nasra Izquierdo MA December 01, 2024 11:15 AM documented in this encounter [facility] 12-01-2024 Note Patient Outreach (NE TNAV) AIMEE CANCINO ([id number]) 1945 F Date Time Provider Department 12/01/24 NASRA IZQUIERDO During your visit today, we recorded the following information about you: Nasra Izquierdo MA 12/01/2024 11:17 AM Signed POPULATION HEALTH NAVIGATION OUTREACH Action/FYI msg to schedule wellness, hcc gap closure, bp to be addressed as not compliant not <130/80, hgba1c and ked/ uacr and bmp not pended as I didn't speak to the patient, influenza, diabetic retinal eye exam Reason for Outreach Care Gap/HCC or Scheduling Wellness Visits Care Gaps due: Medicare Annual Wellness Visit Controlling Blood Pressure Diabetic Eye Exam HBA1C KED Flu Vaccine Patient Contacted: Unable or unnecessary to reach patient: Left message VERTILAS message sent HCC related Navigation Signature: Nasra Izquierdo MA December 01, 2024 11:15 AM Allergies As of Date: 12/01/2024 (No Known Allergies) Date Reviewed: 09/06/2021 Reviewed by: Ritu Sweet LPN - Fully Assessed Reason for Visit: Population Health Navigation Outreach [3910] Cmt: Kati arauz Prescriptions as of 12/01/2024 - atorvastatin (LIPITOR) 20 mg tablet Take 1 tablet by mouth daily at bedtime. For cholesterol. - metoprolol succinate ER (TOPROL XL) 25 mg 24 hr tablet Take 1 tablet by mouth once daily. - sertraline (ZOLOFT) 50 mg tablet Take 1 tablet by mouth once daily. - metFORMIN ER (GLUCOPHAGE XR) 500 mg 24 hr tablet Take 1 tablet by mouth daily with breakfast. - lisinopril (ZESTRIL, PRINIVIL) 20 mg tablet Take 0.5 tablets by mouth once daily. - CPAP Initiate CPAP @ 7 cm of water with humidification. Mask (per patient preference) optional chin strap (if indicated) , filters, tubing, humidifier and lifetime supplies. - blood sugar diagnostic (ACCU-CHEK ALEJANDRA) test strip Test blood sugar(s) 3 times daily. Dx: Type 2 DM - Controlled E11.9 Insulin: Yes Accucheck smartview test strips Problem List As Of Date 12/01/2024 Noted Resolved SUMMARY [V999.95] 09/05/2013 Orbital cellulitis and preseptal cellulitis [H0*09/05/2013 DVT prophylaxis [[id number]] 09/05/2013 HTN (hypertension) [I10] 09/05/2013 Diabetes mellitus (HCC) [E11.9] 09/05/2013 Colon cancer screening [Z12.11] 07/05/2017 Anxiety [F41.9] DDD (degenerative disc disease), cervical [M50.*02/05/2019 FINA (obstructive sleep apnea) [G47.33] Obesity [E66.9] Encounter Status:Closed by NASRA IZQUIERDO on 12/01/24 [facility] 09-14-2024 Note HNO ID: [id number] Author: NASRA IZQUIERDO MA Service: ? Author Type: Library Science Professor Type: Progress Notes Filed: 09/14/2024 11:28 Note Text: POPULATION HEALTH NAVIGATION OUTREACH Action/FYI msg to schedule wellness, hcc gap closure, bp to be addressed as not compliant not <130/80 uacr not pended as I didn't speak to the patient, cmp was done this year, influenza, diabetic retinal eye exam, hgba1c- not pended as I didn't speak to the patient Reason for Outreach Care Gap/HCC or Scheduling Wellness Visits Care Gaps due: Medicare Annual Wellness Visit Controlling Blood Pressure Diabetic Eye Exam HBA1C KED Flu Vaccine Patient Contacted: Unable or unnecessary to reach patient: Left message [employer] message sent HCC related Navigation Signature: Nasra Izquierdo MA September 14, 2024 11:27 AM [facility] 09-14-2024 History of Presen t illness Narrative POPULATION HEALTH NAVIGATION OUTREACH Action/FYI msg to schedule wellness, hcc gap closure, bp to be addressed as not compliant not <130/80 uacr not pended as I didn't speak to the patient, cmp was done this year, influenza, diabetic retinal eye exam, hgba1c- not pended as I didn't speak to the patient Reason for Outreach Care Gap/HCC or Scheduling Wellness Visits Care Gaps due: Medicare Annual Wellness Visit Controlling Blood Pressure Diabetic Eye Exam HBA1C KED Flu Vaccine Patient Contacted: Unable or unnecessary to reach patient: Left message VERTILAS message sent HCC related Navigation Signature: Nasra Izquierdo MA September 14, 2024 11:27 AM documented in this encounter [facility] 09-14-2024 Note Patient Outreach (NE TNAV) AIMEE CANCINO ([id number]) 1945 F Date Time Provider Department 09/14/24 NASRA IZQUIERDO During your visit today, we recorded the following information about you: Nasra Izquierdo MA 09/14/2024 11:28 AM Signed POPULATION HEALTH NAVIGATION OUTREACH Action/FYI msg to schedule wellness, hcc gap closure, bp to be addressed as not compliant not <130/80 uacr not pended as I didn't speak to the patient, cmp was done this year, influenza, diabetic retinal eye exam, hgba1c- not pended as I didn't speak to the patient Reason for Outreach Care Gap/HCC or Scheduling Wellness Visits Care Gaps due: Medicare Annual Wellness Visit Controlling Blood Pressure Diabetic Eye Exam HBA1C KED Flu Vaccine Patient Contacted: Unable or unnecessary to reach patient: Left message VERTILAS message sent HCC related Navigation Signature: Nasra Izquierdo MA September 14, 2024 11:27 AM Allergies As of Date: 09/14/2024 (No Known Allergies) Date Reviewed: 09/06/2021 Reviewed by: Ritu Sweet LPN - Fully Assessed Reason for Visit: Population Health Navigation Outreach [3910] Cmt: Kati arauz Prescriptions as of 09/14/2024 - atorvastatin (LIPITOR) 20 mg tablet Take 1 tablet by mouth daily at bedtime. For cholesterol. - metoprolol succinate ER (TOPROL XL) 25 mg 24 hr tablet Take 1 tablet by mouth once daily. - sertraline (ZOLOFT) 50 mg tablet Take 1 tablet by mouth once daily. - metFORMIN ER (GLUCOPHAGE XR) 500 mg 24 hr tablet Take 1 tablet by mouth daily with breakfast. - lisinopril (ZESTRIL, PRINIVIL) 20 mg tablet Take 0.5 tablets by mouth once daily. - CPAP Initiate CPAP @ 7 cm of water with humidification. Mask (per patient preference) optional chin strap (if indicated) , filters, tubing, humidifier and lifetime supplies. - blood sugar diagnostic (ACCU-CHEK ALEJANDRA) test strip Test blood sugar(s) 3 times daily. Dx: Type 2 DM - Controlled E11.9 Insulin: Yes Accucheck smartview test strips Problem List As Of Date 09/14/2024 Noted Resolved SUMMARY [V999.95] 09/05/2013 Orbital cellulitis and preseptal cellulitis [H0*09/05/2013 DVT prophylaxis [[id number]] 09/05/2013 HTN (hypertension) [I10] 09/05/2013 Diabetes mellitus (HCC) [E11.9] 09/05/2013 Colon cancer screening [Z12.11] 07/05/2017 Anxiety [F41.9] DDD (degenerative disc disease), cervical [M50.*02/05/2019 FINA (obstructive sleep apnea) [G47.33] Obesity [E66.9] Encounter Status:Closed by NASRA IZQUIERDO on 09/14/24 [facility] 04-21-2024 Note HNO ID: [id number] Author: NASRA IZQUIERDO MA Service: ? Author Type: Library Science Professor Type: Progress Notes Filed: 04/21/2024 11:32 Note Text: POPULATION HEALTH NAVIGATION OUTREACH Action/FYI msg to schedule wellness, hcc gap closure, bp, diabetic retinal eye exam, hgba1c- not pended as I didn't speak to the patient Reason for Outreach Care Gap/HCC or Scheduling Wellness Visits Care Gaps due: Medicare Annual Wellness Visit Controlling Blood Pressure Diabetic Eye Exam HBA1C Patient Contacted: Unable or unnecessary to reach patient: Left message [employer] message sent HCC related Navigation Signature: Nasra Izquierdo MA April 21, 2024 11:31 AM [facility] 04-21-2024 History of Presen t illness Narrative POPULATION HEALTH NAVIGATION OUTREACH Action/FYI msg to schedule wellness, hcc gap closure, bp, diabetic retinal eye exam, hgba1c- not pended as I didn't speak to the patient Reason for Outreach Care Gap/HCC or Scheduling Wellness Visits Care Gaps due: Medicare Annual Wellness Visit Controlling Blood Pressure Diabetic Eye Exam HBA1C Patient Contacted: Unable or unnecessary to reach patient: Left message VERTILAS message sent HCC related Navigation Signature: Nasra Izquierdo MA April 21, 2024 11:31 AM documented in this encounter [facility] 04-21-2024 Note Patient Outreach (NE TNAV) AIMEE CANCINO ([id number]) 1945 F Date Time Provider Department 04/21/24 NASRA IZQUIERDO During your visit today, we recorded the following information about you: Nasra Izquierdo MA 04/21/2024 11:32 AM Signed POPULATION HEALTH NAVIGATION OUTREACH Action/FYI msg to schedule wellness, hcc gap closure, bp, diabetic retinal eye exam, hgba1c- not pended as I didn't speak to the patient Reason for Outreach Care Gap/HCC or Scheduling Wellness Visits Care Gaps due: Medicare Annual Wellness Visit Controlling Blood Pressure Diabetic Eye Exam HBA1C Patient Contacted: Unable or unnecessary to reach patient: Left message [employer] message sent HCC related Navigation Signature: Nasra Izquierdo MA April 21, 2024 11:31 AM Allergies As of Date: 04/21/2024 (No Known Allergies) Date Reviewed: 09/06/2021 Reviewed by: Ritu Sweet LPN - Fully Assessed Reason for Visit: Population Health Navigation Outreach [3910] Cmt: Kati bull davonte Prescriptions as of 04/21/2024 - atorvastatin (LIPITOR) 20 mg tablet Take 1 tablet by mouth daily at bedtime. For cholesterol. - metoprolol succinate ER (TOPROL XL) 25 mg 24 hr tablet Take 1 tablet by mouth once daily. - sertraline (ZOLOFT) 50 mg tablet Take 1 tablet by mouth once daily. - metFORMIN ER (GLUCOPHAGE XR) 500 mg 24 hr tablet Take 1 tablet by mouth daily with breakfast. - lisinopril (ZESTRIL, PRINIVIL) 20 mg tablet Take 0.5 tablets by mouth once daily. - CPAP Initiate CPAP @ 7 cm of water with humidification. Mask (per patient preference) optional chin strap (if indicated) , filters, tubing, humidifier and lifetime supplies. - blood sugar diagnostic (ACCU-CHEK ALEJANDRA) test strip Test blood sugar(s) 3 times daily. Dx: Type 2 DM - Controlled E11.9 Insulin: Yes [employer] test strips Problem List As Of Date 04/21/2024 Noted Resolved SUMMARY [V999.95] 09/05/2013 Orbital cellulitis and preseptal cellulitis [H0*09/05/2013 DVT prophylaxis [[id number]] 09/05/2013 HTN (hypertension) [I10] 09/05/2013 Diabetes mellitus (HCC) [E11.9] 09/05/2013 Colon cancer screening [Z12.11] 07/05/2017 Anxiety [F41.9] DDD (degenerative disc disease), cervical [M50.*02/05/2019 FINA (obstructive sleep apnea) [G47.33] Obesity [E66.9] Encounter Status:Closed by NASRA IZQUIERDO on 04/21/24 [facility] 04-22-2023 Miscellaneous Notes Spoke with patient. Given message from provider's office. Patient verbalizes understanding. Patient states she viewed results on My Chart and will call back to schedule appointment. Quynh Suero RN TC to patient with no answer. Left VM to return call to office. ANURAG Ray ----- Message from Jose F Zamora MD sent at 04/22/2023 11:57 AM EDT ----- It has been more than 18 months since her last OV with our practice. Recommend f/u visit to go over lab results and recheck DM. documented in this encounter [facility] 04-17-2023 History of Presen t illness Narrative POPULATION HEALTH NAVIGATION OUTREACH Action/FYI HCC Gaps Due; E11.9 - Diabetes mellitus (HCC) - [id number] Last Billed 09/06/2021
[employer] Care Gaps Due; Annual BP Controlled Colorectal Cancer Screening DEION HGBA1C Urine Albumin Left message and sent My Chart. Sent pended Urine Albumin order to PCP. Patient Identified by Name and : NO Outreach Outcome/Action Unable to reach patient: Left message MyChart message sent Did you use a PCP flex slot to schedule this appointment? N/A Reason for Outreach HCC or suspected condition Payer: Payor: [employer] MEDICARE / Plan: [employer] MEDICARE PPO / Product Type: PPO / Care Gap Reviewed:: Annual Wellness visit Controlling Blood Pressure Colorectal Cancer Screening Diabetic Eye Exam HBA1C Nephropathy (Albumin/Creatinine) Urine Reminder: Reminder note to check Health Maintenance for items below Health Maintenance items due: COVID-19 VACCINE(3 - Booster for Pfizer series) due on 04/12/2021 HBA1C due on 03/07/2022 COLORECTAL CANCER SCREENING due on 07/16/2022 DIABETIC FOOT EXAM due on 09/06/2022 ANNUAL PCP TEAM CHRONIC DISEASE VISIT due on 09/06/2022 BP CONTROLLED (<130/80) due on 09/06/2022 URINE ALBUMIN:CREATININE RATIO due on 09/07/2022 LDL CHOLESTEROL due on 09/07/2022 ADVANCE DIRECTIVE DISCUSSION Never done DEPRESSION ASSESSMENT Never done DILATED RETINAL EXAM due on 04/06/2023 Navigation Signature: Geraldine Simpson April 17, 2023 11:45 AM documented in this encounter [facility] 10-25-2022 History of Presen t illness Narrative Radiology Service Progress Note PATIENT NAME: Aimee Cancino DATE OF SERVICE: October 25, 2022 TIME: 10:45 AM PATIENT IDENTITY VERIFICATION COMPLETED USING TWO (2) IDENTIFIERS: Name and Date of confirmed by patient verbally. FALL SCREENING: Has the patient had 2 falls in the last year or 1 fall with injury or currently using an Ambulatory Assistive Device (Walker, Cane, Wheelchair, Crutches, etc.)? No PATIENT GENDER DATA: Female. status: : No status: NO. PATIENT RELEVANT IMPLANT DATA REVIEWED: Not Applicable RADIOLOGY DEPARTMENT: Mammography PERIPHERAL IV DATA: Not applicable SIGNED BY: RT Cristiana(R) October 25, 2022 10:45 AM documented in this encounter [facility] 10-10-2022 History of Presen t illness Narrative POPULATION HEALTH NAVIGATION OUTREACH Action/FYI Patient due for the following: Annual exam A1C Due Influenza Colorectal Cancer Screening Mammogram Urine Albumin:Creatinine Ratio, Bp control Call made to patient and she scheduled mammogram, declined pcp appointmant and lab orders and flu vaccine at this time Pt identified by name and : YES, via phone Outreach Outcome/Action Spoke to patient or caregiver: Patient scheduled Did you use a PCP flex slot to schedule this appointment? N/A Reason for Outreach Care Gap or Scheduling/Wellness visits Payer: Payor: [employer] MEDICARE / Plan: [employer] MEDICARE PPO / Product Type: PPO / Care Gap Reviewed:: Annual Wellness visit Colorectal Cancer Screening HBA1C Nephropathy (Albumin/Creatinine) Urine Flu vaccine Reminder: Reminder note to check Health Maintenance for items below Health Maintenance items due: COVID-19 VACCINE(3 - Booster for Pfizer series) due on 04/12/2021 ADVANCE DIRECTIVE DISCUSSION Never done DEPRESSION ASSESSMENT Never done HBA1C due on 03/07/2022 INFLUENZA(1) due on 06/21/2022 COLORECTAL CANCER SCREENING due on 07/16/2022 DIABETIC FOOT EXAM due on 09/06/2022 ANNUAL PCP TEAM CHRONIC DISEASE VISIT due on 09/06/2022 BP CONTROLLED (<130/80) due on 09/06/2022 URINE ALBUMIN:CREATININE RATIO due on 09/07/2022 LDL CHOLESTEROL due on 09/07/2022 Navigation Signature: Cata Dunn October 10, 2022 10:59 AM documented in this encounter [facility] 09-06-2022 History of Presen t illness Narrative Labs updated. POPULATION HEALTH NAVIGATION OUTREACH Action/[facility] Patient due for the following: Annual exam A1C Due Influenza Colorectal Cancer Screening Mammogram Urine Albumin:Creatinine Ratio, Bp control Dr Zamora , Please review and sign pended lab(s), add any additional needed. Please Review "expected by" date and update if needed Left voicemail for patient to return call [employer] message sent Pt identified by name and : NO Outreach Outcome/Action Unable to reach patient: Left message [employer] message sent Did you use a PCP flex slot to schedule this appointment? N/A Reason for Outreach Care Gap or Scheduling/Wellness visits Payer: Payor: [employer] MEDICARE / Plan: [employer] MEDICARE PPO / Product Type: PPO / Care Gap Reviewed:: Annual Wellness visit Breast Cancer screening Controlling Blood Pressure Colorectal Cancer Screening HBA1C Nephropathy (Albumin/Creatinine) Urine Flu vaccine Reminder: Reminder note to check Health Maintenance for items below Health Maintenance items due: COVID-19 VACCINE(3 - Booster for Pfizer series) due on 04/12/2021 ADVANCE DIRECTIVE DISCUSSION Never done DEPRESSION ASSESSMENT Never done HBA1C due on 03/07/2022 INFLUENZA(1) due on 06/21/2022 COLORECTAL CANCER SCREENING due on 07/16/2022 ANNUAL PCP TEAM CHRONIC DISEASE VISIT due on 09/06/2022 BP CONTROLLED (<130/80) due on 09/06/2022 DIABETIC FOOT EXAM due on 09/06/2022 URINE ALBUMIN:CREATININE RATIO due on 09/07/2022 LDL CHOLESTEROL due on 09/07/2022 MAMMOGRAM due on 10/06/2022 Message Sent to Practice: Yes Navigation Signature: Cata Dunn September 06, 2022 12:40 PM documented in this encounter [facility] 07-12-2022 History of Presen t illness Narrative POPULATION HEALTH NAVIGATION OUTREACH Action/FYI Declined at this time. Will call back when she is ready to schedule Pt identified by name and : YES, via phone Outreach Outcome/Action Spoke to patient or caregiver: Patient declined Did you use a PCP flex slot to schedule this appointment? N/A Reason for Outreach Care Gap or Scheduling/Wellness visits Payer: Payor: [employer] MEDICARE / Plan: [employer] MEDICARE PPO / Product Type: PPO / Care Gap Reviewed:: Follow-up appointment Breast Cancer screening Colorectal Cancer Screening HBA1C Flu vaccine Reminder: Reminder note to check Health Maintenance for items below Health Maintenance items due: COVID-19 VACCINE(3 - Booster for Pfizer series) due on 04/12/2021 ADVANCE DIRECTIVE DISCUSSION Never done HBA1C due on 03/07/2022 INFLUENZA(1) due on 06/21/2022 COLORECTAL CANCER SCREENING due on 07/16/2022 MAMMOGRAM due on 10/06/2022 Message Sent to Practice: No Navigation Signature: Yuli Gentile Population Health Navigator July 12, 2022 2:31 PM documented in this encounter [facility] 05-28-2022 History of Presen t illness Narrative POPULATION HEALTH NAVIGATION OUTREACH Action/FYI [employer] caregaps Patient due for the following: Advance Directives HGB A1C Left voicemail for patient to return call Mychart message sent Pt identified by name and : NO Outreach Outcome/Action Unable to reach patient: Left message MyChart message sent Did you use a PCP flex slot to schedule this appointment? N/A Reason for Outreach Care Gap or Scheduling/Wellness visits Payer: Payor: [employer] MEDICARE / Plan: [employer] MEDICARE PPO / Product Type: PPO / Care Gap Reviewed:: HBA1C Reminder: Reminder note to check Health Maintenance for items below Health Maintenance items due: COVID-19 VACCINE(3 - Booster for Pfizer series) due on 07/18/2021 ADVANCE DIRECTIVE DISCUSSION Never done HBA1C due on 03/07/2022 Message Sent to Practice: No Navigation Signature: Cata Dunn May 28, 2022 10:43 AM documented in this encounter [facility] 02-28-2022 Miscellaneous Notes DERRELL 09/06/21 No upcoming office visit scheduled. Patient has been identified by name and date of : Yes Pending Prescriptions Disp Refills ATORVASTATIN 20 MG TABLET 90 tablet 3 Sig: Take 1 tablet by mouth daily at bedtime. For cholesterol. EJ: No METOPROLOL SUCCINATE ER 25 MG TABLET,EXTENDED RELEASE 24 HR 90 tablet 3 Sig: Take 1 tablet by mouth once daily. EJ: No RX INSTRUCTIONS: Patient aware RX will be sent to pharmacy. No need to notify patient. Guero Khalil Pss documented in this encounter [facility] Evaluation note Diagnosis Hyperlipidemia, mixed Mixed hyperlipidemia [facility] Diabetes mellitus due to underlying condition with hyperosmolarity without coma, without long-term current use of insulin (HCC)- Primary [facility] Diagnosis Encounter for screening mammogram for malignant neoplasm of breast- Primary Other screening mammogram [facility]* Diagnosis Diabetes mellitus (HCC) Type II or unspecified type diabetes mellitus without mention of complication, not stated as uncontrolled [facility] Diagnosis Type 2 diabetes mellitus without complication, unspecified whether residential insulin use (HCC)- Primary [facility] Diagnosis Encounter for screening mammogram for malignant neoplasm of breast Other screening mammogram [facility] Diagnosis Speech disturbance, unspecified type- Primary Coordination abnormal Lack of coordination Balance problem Other symptoms involving nervous and musculoskeletal systems Recurrent falls Personal history of fall History of diabetes mellitus Personal history of other endocrine, metabolic, and immunity disorders History of hyperlipidemia Personal history of other endocrine, metabolic, and immunity disorders Pain in left hip Pain in joint, pelvic region and thigh Insomnia, unspecified type Obstructive sleep apnea (adult) (pediatric) [facility] Diagnosis Pain in left hip Pain in joint, pelvic region and thigh documented in this encounter [facility] note* Diagnosis Speech disturbance, unspecified type Coordination abnormal Lack of coordination Recurrent falls Personal history of fall Balance problem Other symptoms involving nervous and musculoskeletal systems documented in this encounter [facility] note* Diagnosis Coordination abnormal- Primary Lack of coordination Balance problem Other symptoms involving nervous and musculoskeletal systems Recurrent falls Personal history of fall Neuropathy Mononeuritis of unspecified site Speech disturbance, unspecified type documented in this encounter [facility] note* Diagnosis Insomnia, unspecified type- Primary FINA on CPAP Obstructive sleep apnea (adult) (pediatric) documented in this encounter [facility] noteNo assessment information availableWOhio State [facility] Work Phone: Evaluation note* Diagnosis Insomnia, unspecified type- Primary FINA on CPAP Obstructive sleep apnea (adult) (pediatric) documented in this encounter [facility] for referral (narrative)* Diagnostic Procedure Only (Routine) - Authorized Specialty Diagnoses / Procedures Referred By Gabriele t Referred To Contact [facility] Diagnoses Encounter for screening mammogram for malignant neoplasm of breast Procedures ROSSY SCREENING SCREENING MAMMOGRAPHY BI 2-VIEW BREAST INC Jose F Blackburn MD [address] [place] [address] [facility] [address] [place] [id number] Referral ID Status Reason Start Date Expiration Date Visits Requested Visits Authorized [id number] Authorized Auto-Generat ed Referral 2 11/09/2023 1 1 [facility] for referral (narrative)* Diagnostic Procedure Only (Routine) - Closed Specialty Diagnoses / Procedures Referred By Contac t Referred To Contact [facility] Diagnoses Encounter for screening mammogram for malignant neoplasm of breast Procedures ROSSY SCREENING SCREENING MAMMOGRAPHY BI 2-VIEW BREAST INC Jose F Blackburn MD [address] [place] [address] [facility] [address] [place] [address] Referral ID Status Reason Start Date Expiration Date V isits Requested Visits Authorized [id number] Closed Auto-Generate d Referral 10/10/2022 11/09/2023 1 1 [facility] for referral (narrative)No reason for referral information availableWOhio State [facility] Work Phone: Reason for visit Narrative* Diagnostic Procedure Only (Routine) - Closed Specialty Diagnoses / Procedures Referred By Chavezac t Referred To Contact [facility] Diagnoses Encounter for screening mammogram for malignant neoplasm of breast Procedures ROSSY SCREENING SCREENING MAMMOGRAPHY BI 2-VIEW BREAST INC Jose F Blackburn MD [address] [place] [id number] [facility] [address] [place] [place] [id number] Referral ID Status Reason Start Date Expiration Date V isits Requested Visits Authorized [id number] Closed Auto-Generate d Referral 10/10/2022 11/09/2023 1 1 [facility] for visit Narrative* Diagnostic Procedure Only (Routine) - Closed Specialty Diagnoses / Procedures Referred By Contac t Referred To Contact XR IMAGING Diagnoses Pain in left hip Procedures XR HIP GENERAL 3V PELV/AP/LAT LEFT RADEX HIP UNILATERAL WITH PELVIS 2-3 VIEWS Chauncey Jang Jr., MD [address] [place], [place] [id number] Phone: tel: fax: XR IMAGING [id number] Referral ID Status Reason Start Date Expiration Date V isits Requested Visits Authorized [id number] Closed Auto-Generate d Referral 12/04/2024 01/03/2026 1 1 [facility] for visit Narrative* MRI/CT (Routine) - Closed Specialty Diagnoses / Procedures Referred By Gabriele t Referred To Contact MR IMAGING Diagnoses Speech disturbance, unspecified type Coordination abnormal Recurrent falls Balance problem Procedures MRI BRAIN WO IVCON MRI BRAIN BRAIN STEM W/O CONTRAST MATERIAL Chauncey Jang Jr., MD [address] [place] [address] Phone: tel: fax: [place] [id number] Referral ID Status Reason Start Date Expiration Date V isits Requested Visits Authorized [id number] Closed Auto-Generate d Referral 12/14/2024 01/13/2025 1 1 [facility] Advance Directives No Advanced Directives Records FoundDocuments on File Type Date Recorded Patient Steward/Stewardess Bath Expl anation Advance Directive(s) 07/16/2017 6:04 AM Advance Directive(s) 07/16/2017 6:02 AM Documents on File Type Date Recorded Patient Steward/Stewardess Bath Expl anation Advance Directive(s) 07/16/2017 6:02 AM Documents on File Type Date Recorded Patient Steward/Stewardess Bath Expl anation Advance Directive(s) 07/16/2017 6:02 AM Advance Directive Response Recorded Date/ Time Advance Directives Yes August 6:21pm Chief Complaint and Reason for Visit Chief Complaint Admit Date NEUROPATHY February 03, 2025 12: 11pm Neuropathy February 03, 2025 1:3 3pm Family History No Family History Records Found Relationship Condition Age at Onset Recorded Date/T lissette mother Diabetes mellitus Unknown sister Diabetes mellitus Unknown Summary Purpose Additional Source Comments Source Comments (unrecognize d section and content) In the event this informatio n is protected by the Federal Confidentiality of Alcohol and Drug Abuse Patient Records regulations: The Federal rules restrict any use of the information to criminally investigate or prosecute any alcohol or drug abuse patient.[facility] the event this information is protected by the Federal Confidentiality of Alcohol and Drug Abuse Patient Records regulations: The Federal rules restrict any use of the information to criminally investigate or prosecute any alcohol or drug abuse patient.[facility] Center[facility] the event this information is protected by the Federal Confidentiality of Alcohol and Drug Abuse Patient Records regulations: The Federal rules restrict any use of the information to criminally investigate or prosecute any alcohol or drug abuse patient.[facility] Center[facility] the event this information is protected by the Federal Confidentiality of Alcohol and Drug Abuse Patient Records regulations: The Federal rules restrict any use of the information to criminally investigate or prosecute any alcohol or drug abuse patient.[facility] Center[facility] the event this information is protected by the Federal Confidentiality of Alcohol and Drug Abuse Patient Records regulations: The Federal rules restrict any use of the information to criminally investigate or prosecute any alcohol or drug abuse patient.[facility] Center[facility] the event this information is protected by the Federal Confidentiality of Alcohol and Drug Abuse Patient Records regulations: The Federal rules restrict any use of the information to criminally investigate or prosecute any alcohol or drug abuse patient.[facility] Center[facility] the event this information is protected by the Federal Confidentiality of Alcohol and Drug Abuse Patient Records regulations: The Federal rules restrict any use of the information to criminally investigate or prosecute any alcohol or drug abuse patient.[facility] CenterIn the event this information is protected by the Federal Confidentiality of Alcohol and Drug Abuse Patient Records regulations: The Federal rules restrict any use of the information to criminally investigate or prosecute any alcohol or drug abuse patient.[facility] CenterIn the event this information is protected by the Federal Confidentiality of Alcohol and Drug Abuse Patient Records regulations: The Federal rules restrict any use of the information to criminally investigate or prosecute any alcohol or drug abuse patient.[facility] the event this information is protected by the Federal Confidentiality of Alcohol and Drug Abuse Patient Records regulations: The Federal rules restrict any use of the information to criminally investigate or prosecute any alcohol or drug abuse patient.[facility] Center[facility] the event this information is protected by the Federal Confidentiality of Alcohol and Drug Abuse Patient Records regulations: The Federal rules restrict any use of the information to criminally investigate or prosecute any alcohol or drug abuse patient.[facility] CenterIn the event this information is protected by the Federal Confidentiality of Alcohol and Drug Abuse Patient Records regulations: The Federal rules restrict any use of the information to criminally investigate or prosecute any alcohol or drug abuse patient.[facility] Center[facility] the event this information is protected by the Federal Confidentiality of Alcohol and Drug Abuse Patient Records regulations: The Federal rules restrict any use of the information to criminally investigate or prosecute any alcohol or drug abuse patient.[facility] CenterIn the event this information is protected by the Federal Confidentiality of Alcohol and Drug Abuse Patient Records regulations: The Federal rules restrict any use of the information to criminally investigate or prosecute any alcohol or drug abuse patient.[facility] CenterIn the event this information is protected by the Federal Confidentiality of Alcohol and Drug Abuse Patient Records regulations: The Federal rules restrict any use of the information to criminally investigate or prosecute any alcohol or drug abuse patient.[facility] CenterIn the event this information is protected by the Federal Confidentiality of Alcohol and Drug Abuse Patient Records regulations: The Federal rules restrict any use of the information to criminally investigate or prosecute any alcohol or drug abuse patient.[facility] CenterIn the event this information is protected by the Federal Confidentiality of Alcohol and Drug Abuse Patient Records regulations: The Federal rules restrict any use of the information to criminally investigate or prosecute any alcohol or drug abuse patient.[facility] CenterIn the event this information is protected by the Federal Confidentiality of Alcohol and Drug Abuse Patient Records regulations: The Federal rules restrict any use of the information to criminally investigate or prosecute any alcohol or drug abuse patient.[facility] CenterIn the event this information is protected by the Federal Confidentiality of Alcohol and Drug Abuse Patient Records regulations: The Federal rules restrict any use of the information to criminally investigate or prosecute any alcohol or drug abuse patient.[facility] CenterIn the event this information is protected by the Federal Confidentiality of Alcohol and Drug Abuse Patient Records regulations: The Federal rules restrict any use of the information to criminally investigate or prosecute any alcohol or drug abuse patient.[facility] CenterIn the event this information is protected by the Federal Confidentiality of Alcohol and Drug Abuse Patient Records regulations: The Federal rules restrict any use of the information to criminally investigate or prosecute any alcohol or drug abuse patient.[facility] CenterIn the event this information is protected by the Federal Confidentiality of Alcohol and Drug Abuse Patient Records regulations: The Federal rules restrict any use of the information to criminally investigate or prosecute any alcohol or drug abuse patient.[facility] CenterIn the event this information is protected by the Federal Confidentiality of Alcohol and Drug Abuse Patient Records regulations: The Federal rules restrict any use of the information to criminally investigate or prosecute any alcohol or drug abuse patient.[facility] CenterIn the event this information is protected by the Federal Confidentiality of Alcohol and Drug Abuse Patient Records regulations: The Federal rules restrict any use of the information to criminally investigate or prosecute any alcohol or drug abuse patient.[facility] Reason for Visit (unrecogniz ed section and content) Reason Onset Date Comments Refill Request 02/27/2022 Reason Onset Date Comments Population Health Navigation Outreach 05/28/2022 [employer] Medicare Reason Onset Date Comments Population Health Navigation Outreach 07/12/2022 [employer] Care Gaps Reason Onset Date Comments Population Health Navigation Outreach 09/06/2022 [employer] Medicare Reason Onset Date Comments Population Health Navigation Outreach 10/10/2022 [employer] Medicare Reason Comments Results Reason Onset Date Comments Population Health Navigation Outreach 04/17/2023 [employer] Low HCC Reason Onset Date Comments Population Health Navigation Outreach 04/21/2024 [employer] workbench [place]onte Reason Onset Date Comments Population Health Navigation Outreach 09/14/2024 [employer] workbench davonte Reason Onset Date Comments Population Health Navigation Outreach 12/01/2024 [employer] workbench [place] Reason Comments Appointment 12/04/24 appointment- no documentation Reason Comments New Patient Evaluation Reason Comments Follow Up Reason Comments Follow Up Specialty Diagnoses / Procedures Referred By Gabriele gatica Referred To Contact Neurology Diagnoses Obstructive sleep apnea (adult) (pediatric) Insomnia, unspecified type Procedures CONSULT TO NEUROLOGY OFFICE/OUTPATIENT NEW HIGH MDM 60 MINUTES Chauncey Jang Jr., MD [address] [place] [address] Phone: tel: fax: Referral ID Status Reason Start Date Expiration Date V isits Requested Visits Authorized [id number] Closed PCP Requested Referral 12/04/2024 12/04/2025 1 1 Reason Comments Established Patient 2 Month follow up Care Teams (unrecognized sec tion and content) Residential Care Facility Manager Relationship Specialty Start Date End Date Jose F Zamora MD [address] [place], [place] [phone] PCP - General Family Practice 07/04/17 Tomi Shaverril S [address] [phone] Physician Cardiology 01/30/19 Residential Care Facility Manager Relationship Specialty Start Date End Date Jose F Zamora MD [address] [place], [place] [id number] PCP - General Family Practice 07/04/17 Sivakumar Rodney S [address] [facility] [address] [place], [place] [id number] [phone] Physician Cardiology 01/30/19 Residential Care Facility Manager Relationship Specialty Start Date End Date Jose F Zamora MD [address] [place] [address] PCP - General Family Medicine 07/04/17 Sivakumar, Rodney S [address] [place] [address] Physician Cardiology 01/30/19 Residential Care Facility Manager Relationship Specialty Start Date End Date Jose F Zamora MD [address] [place] [address] PCP - General Family Medicine 07/04/17 Sivakumar, Oreland S [address] [place] [address] Physician Cardiology 01/30/19 Residential Care Facility Manager Relationship Specialty Start Date End Date Jose F Zamora MD [address] [place] [address] PCP - General Family Medicine 07/04/17 Sivakumar, Rodney S [address] [place] [address] Physician Cardiology 01/30/19 Residential Care Facility Manager Relationship Specialty Start Date End Date Jose F Zamora MD [address] [place] [address] PCP - General Family Medicine 07/04/17 Sivakumar, Rodney S [address] [place] [address] Physician Cardiology 01/30/19 Residential Care Facility Manager Relationship Specialty Start Date End Date Jose F Zamora MD [address] [place] [address] PCP - General Family Medicine 07/04/17 Sivakumar, Rodney S [address] [place] [address] Physician Cardiology 01/30/19 Residential Care Facility Manager Relationship Specialty Start Date End Date Jose F Zamora MD [address] [facility] [address] PCP - General Family Medicine 07/04/17 Rodney Shaver S [address] [place] [address] Physician Cardiology 01/30/19 Residential Care Facility Manager Relationship Specialty Start Date End Date Jose F Zamora MD [address] [facility] [place] [address] PCP - General Family Medicine 07/04/17 Rodney Shaver MD [address] [facility] [address] [place] [address] Physician Cardiology 01/30/19 Residential Care Facility Manager Relationship Specialty Start Date End Date Jose F Zamora MD [address] [facility] [place] [address] PCP - General Family Medicine 07/04/17 Rodney Shaver MD [address] [facility] [address] [place] [address] Physician Cardiology 01/30/19 Residential Care Facility Manager Relationship Specialty Start Date End Date Jose F Zamora MD [address] [facility] [address] PCP - General Family Medicine 07/04/17 Rodney Sahver MD [address] [facility] [address] [place] [address] Physician Cardiology 01/30/19 Podlogar, RANI Carver.TRACTOR OPERATOR [address] [place] [place] [address] Chief Clerk Shelter Family Medicine 09/26/24 Residential Care Facility Manager Relationship Specialty Start Date End Date Jose F Zamora MD [address] [facility] [place] [address] PCP - General Family Medicine 07/04/17 Rodney Shaver MD [address] [facility] [address] [place] [address] Physician Cardiology 01/30/19 Podlogar, RANI Carver.TRACTOR OPERATOR [address] [facility] [place] [address] Chief Clerk Shelter Family Medicine 09/26/24 Residential Care Facility Manager Relationship Specialty Start Date End Date Jose F Zamora MD [address] [facility] [place] [address] PCP - General Family Medicine 07/04/17 Rodney Shaver MD [address] [place] [address] Physician Cardiology 01/30/19 Podlogar, Wen, PELLETIZER TENDER.TRACTOR OPERATOR [address] [facility] [place] [address] Chief Clerk Shelter Family Medicine 09/26/24 Residential Care Facility Manager Relationship Specialty Start Date End Date Jose F Zamora MD [address] [facility] [place] [address] PCP - General Family Medicine 07/04/17 Rodney Shaver MD [address] [facility] [address] [place] [address] Physician Cardiology 01/30/19 PodlogarWen APRN.TRACTOR OPERATOR [address] [facility] [place] [address] Chief Clerk Shelter Family Medicine 09/26/24 Residential Care Facility Manager Relationship Specialty Start Date End Date Rodney Shaver MD [address] [address] Physician Cardiology 01/30/19 Residential Care Facility Manager Relationship Specialty Start Date End Date Rodney Shaver MD [address] [address] Physician Cardiology 01/30/19 Residential Care Facility Manager Relationship Specialty Start Date End Date Rodney Shaver MD [address] [phone] Physician Cardiology 01/30/19 Team Status: Active Member Role Status Dates SANIA Collier Primary Care Provider Active Team Status: Inactive Member Role Status Dates VIVI CEBALLOS Attending Provider Active S tart: February 03, 2025 End: February 03, 2025 VIVI CEBALLOS Referring Provider Active S tart: February 03, 2025 End: February 03, 2025 SANIA Collier Primary Care Provider Active Start: February 03, 2025 End: February 03, 2025 Team Status: Active Member Role Status Dates VIVI CEBALLOS Referring Provider Active S tart: February 03, 2025 VIVI CEBALLOS Other Provider Active Start : February 03, 2025 SANIA Collier Primary Care Provider Active Start: February 03, 2025 Dr. Subhash Freed MD Attending Provider Active S tart: February 03, 2025 Residential Care Facility Manager Relationship Specialty Start Date End Date Rodney Shaver MD [address] [address] Physician Cardiology 01/30/19 Residential Care Facility Manager Relationship Specialty Start Date End Date Rodney Shaver MD [address] [address] Physician Cardiology 01/30/19 Residential Care Facility Manager Relationship Specialty Start Date End Date Guero Juares NP [facility] [place] [address] PCP - General Family Medicine 04/01/25 Rodney Shaver MD [address] [address] Physician Cardiology 01/30/19 Residential Care Facility Manager Relationship Specialty Start Date End Date Guero Juares NP [address] [place] [address] PCP - General Family Medicine 04/01/25 Rodney Shaver MD [address] [address] Physician Cardiology 01/30/19 Goals (unrecognized section and content) Goals may be documented in a n alternate section INFORMATION SOURCE (unrecogn ized section and content) DATE CREATED AUTHOR 03/23/2025 [place] [facility] DATE CREATED AUTHOR LATONYA JO 04/03/2025 [facility] FOR RECORDS PERTAINING TO PATIENTS WHO ARE OR HAVE BEEN ENROLLED IN A CHEMICAL DEPENDENCY/SUBSTANCEABUSE PROGRAM, SOME INFORMATION MAY BE OMITTED. This clinical summary was aggregated from multiple sources. Caution should be exercised in using it in the provision of clinical care. This summary normalizes information from multiple sources, and as a consequence, information in this document may materially change the coding, format and clinical context of patient data. In addition, data may be omitted in some cases. CLINICAL DECISIONS SHOULD BE BASED ON THE PRIMARY CLINICAL RECORDS. [employer]. provides no warranty or guarantee of the accuracy or completeness of information in this document.
[2025-05-18 05:07] LABS: VITAMIN B6 16.2 ug/L (3.4-65.2)
== END | disposition home or self-care (01) ==
LOC: BFHLAB 09:38
PROVIDERS: PCP Nurse Practitioner Family; Visit Provider Nurse Practitioner Family
DX: E11.9 Type 2 diabetes mellitus without complications (principal); I10 Essential (primary) hypertension; R53.1 Weakness; R30.0 Dysuria
CPT/HCPCS: 36415; 81002; 82043; 82570; 83036; 84207; 87077; 87086; 87088; 87186

== ENCOUNTER → 2025-06-29 | Outpatient (CLI) | payer MEDICARE, SELFPAY | END | disposition home or self-care (01) | LOC: LABSPEC 12:29 | PROVIDERS: PCP Nurse Practitioner Family; Visit Provider Physician Assistant | DX: J40 Bronchitis, not specified as acute or chronic (principal) | CPT/HCPCS: 87798 ==